=== PATIENT | male | born 1970 | race Caucasian/White ===

== ENCOUNTER 2022-05-22 06:58 | Emergency (ER) | payer SELFPAY ==
--- OUTSIDE RECORDS SUMMARY | 2022-05-22 07:02 | XMS REPORT | Continuity of Care Document ---
:1970 Author Organization [facility] t Address [address] [place] [address] [address]. [address] [place] [address] Care Team Providers Name Role Phone Chaz Klein MD Primary Care Physician [phone] Roro Alejo MD Attending Clinician Physician, No Primary or Family Admitting Clinician Unavaila ble Payers Payer Name Policy Type Policy Number Effective Date Expiration Date S ource Problems Condition Condition Condition Status Onset Resolution Last Treating Co mments Source Name Details Category Date Date Treatment Clinician Date No known No known Disease Unive rs active active ity of problems problems [facility] Allergies, Adverse Reactions, Alerts Allergy Allergy Status Severity Reaction(s) Onset Inactive Treating Comm ents Source Name Type Date Date Clinician No Known DA Active U 2019-0 [facility] All[facility]ie 02-10 Clear s 00:00: [facility] No Known DA Active U 2019-0 [facility] Allergie 02-10 Clear s 00:00: [facility] No Known DA Active U 2016- [facility] Drug 12-30 [place] Allergie 00:00: d [facility] No Known DA Active U 2016- [facility] 12-30 [place] All[facility] 00:[facility]: [facility] NO KNOWN Drug Active Univers ALLERGIE Class ity of S [facility] Social History Social Habit Start Date Stop Date Quantity Comments Source History of tobacco Smokes tobacco Me [facility]odist use daily Hospital Exposure to Not sure University of SARS-CoV-2 (event) [facility] Alcohol intake 2018-11-16 2018-11-16 Current drinker [facility] 00:00:00 00:00:00 of alcohol Hospital (finding) Cigarettes smoked 2018-07-01 2018-07-01 [facility] current (pack per 00:00:00 00:00:00 Hospita l day) - Reported Cigarette 2018-07-01 2018-07-01 [facility] pack-years 00:00:00 00:00:00 Hospital Tobacco use and 2018-07-01 2018-07-01 Smokeless [facility] exposure 00:00:00 00:00:00 tobacco non-user Hospital Alcohol Comment 2018-05-11 2018-05-11 daily use 4-6 Method ist 00:00:00 00:00:00 beers per day Hospital Sex Assigned At [birth year] [facility] 00:00:00 00:00:00 Hospital Smoking Status Start Date Stop Date Source Unknown if ever smoked [facility] Smokes tobacco daily 2018-07-01 00:00:00 [facility] Medications Ordered Filled Start Stop Current Ordering Indication Dosage Frequency Signature Comments Components Source Medication Medication Date Date Medication? Clinician (SIG) Name Name cephALEXin 2019-09- No 500mg 500 mg, Un whit (KEFLEX) 09-18 Oral, ONCE ity of capsule 500 15:15: 14:03 NOW, 1 [place] as mg 00 :00 dose, [facility] Medical 07/19/20 Branch at 0915, ROBBI
Re ason for Anti-Infec tive: Empiric Non-Surgic al Prophylaxi s
Durat ion of therapy: 72 hours acetaminoph 2019-09 2020- No 650mg 650 mg, U nivers en 09-18 Oral, ity of (TYLENOL) 13:15: 12:16 ONCE, 1 [place] tablet 650 00 :00 dose, Fri Medi lawson mg 07/19/20 Branch at 0715, ROBBI ondansetron 2019-09 Yes [id number] 4mg Take 1 Univers 4 mg tablet 09-18 tablet by ity of 00:00: mouth [place] 00 every 8 Medical (eight) Branch hours as needed for Nausea and Vomiting (N/V). traMADoL 50 2019-09 2020- No [id number] 50mg Take 1 Uni vers mg tablet 09-18 tablet by ity of 00:00: 05:59 mouth [place] 00 :00 every 6 Medical (six) Branch hours as needed (pain) for up to 7 days. Indication s: acute pain cephALEXin 2019-09 2020- No [id number] 500mg Take 1 Univers 500 mg 09-18 capsule by ity of capsule 00:00: 05:59 mouth 3 [place] 00 :00 (three) Medical times Branch daily for 7 days. No known No No known [facility] di medications 11-[address] 00:10: s Hospita 13 l Immunizations Ordered Immunization Filled Immunization Date Status Commen ts Source Name Name [facility] 2018-05-30 Completed [facility] 00:00:00 Hospital [facility] 2016-12-17 Completed [facility] 00:00:00 Hospital Vital Signs Vital Name Observation Time Observation Value Comments Source Systolic blood 2020-07-19 14:18:30 132 mm[Hg] Univer [facility] pressure [facility] Diastolic blood 2020-07-19 14:18:30 99 mm[Hg] [facility] Heart rate 2020-07-19 14:18:30 82 /min [facility] Respiratory rate 2020-07-19 14:18:30 16 /min [facility] Oxygen saturation in 2020-07-19 14:18:30 98 /min [facility] Arterial blood by [facility] Pulse oximetry Branch Body weight 2020-07-19 11:32:00 99.791 kg [facility] Body temperature 2020-07-19 11:31:00 36.5 Melony [facility] Procedures Procedure Date / Time Performed Performing Clinician Sourc e [place] LAYR CLOS WND 2020-07-19 14:17:05 Roro Alejo [facility] TRUNK,ARM,LEG Medical Branch 7.6-12.5 CM XR TIBIA FIBULA 2 VW 2020-07-19 12:26:14 Roro Alejo [facility] Plan of Care Planned Activity Planned Date Details Comments Source Future Scheduled 2022-05-10 COVID-19 VACCINE (#1) [facility] Hospital Test 21:32:00 [code = COVID-19 VACCINE (#1)] Future Scheduled 2022-05-10 COLONOSCOPY SCREENING [facility] Test 21:32:00 [code = COLONOSCOPY SCREENING] Future Scheduled 2022-05-10 SHINGLES VACCINES (1 Met [facility] Hospital Test 21:32:00 of 2) [code = SHINGLES VACCINES (1 of 2)] Future Scheduled 2022-05-10 INFLUENZA VACCINE Method is Hospital Test 21:32:00 [code = INFLUENZA VACCINE] Future Scheduled 2022-05-10 HEPATITIS B VACCINES Met [facility] Test 21:32:00 (1 of 3 - 3-dose series) [code = HEPATITIS B VACCINES (1 of 3 - 3-dose series)] Encounters Start End Encounter Admission Attending Care Care Encounter Source Date/Time Date/Time Type Type Clinicians Facility Department ID 2020-02-11 Inpatient [facility] [id number] [facility] 11:19:00 [facility] 2020-07-19 2020-07-19 Emergency [facility] TRAUMA [id number] [facility] [place] [place] 05:31:00 08:21:00 , Roro [place] [id number] it y [id number] Antonella henry [id number] [address] 2020-07-19 2020-07-19 Emergency X [facility] ERT [id number] Univers 05:31:00 05:31:00 ity of [facility] 2017-01-25 2017-01-25 Out[facility] [id number] [address] [place] [address] 00:00:00 00:00:00 [facility] Results Test Description Test Test Results Result Source Time Comments Comments Laceration Roro Alejo MD Un iversity of Repair 18 ? ? 07/19/2020 ?8:17 Antonella henry [facility] 14:17:05 [facility] RepairPerformed by: Roro Alejo MDAuthorized by: Roro Alejo MD Consent: ?Consent obtained: ?Verbal ?Consent given by: ?Patient ?Risks discussed: ?Infection, pain, retained foreign body, need for additional repair, poor cosmetic result, poor wound healing and vascular damage ?Alternatives discussed: ?No treatmentAnesthesia (see MAR for exact dosages): ?Anesthesia method: ?Local infiltration ?Local anesthetic: ?Lidocaine 1% w/o epiLaceration details: ?Location: ?Leg ?Leg location: ?R lower leg ?Length (cm): ?12 (v-shaped, ~8cm & 4 cm) ?Depth (mm): ?3Repair type: ?Repair type: ?IntermediatePre-proced ure details: ?Preparation: ?Patient was prepped and draped in usual sterile fashion and imaging obtained to evaluate for foreign bodiesExploration: ?Hemostasis achieved with: ?Direct pressure ?Wound exploration: entire depth of wound probed and visualized ? ?Wound extent: fascia violated and muscle damage ? ?Wound extent: no foreign bodies/material noted ? ?Contaminated: no ?Treatment: ?Area cleansed with: ?Saline ?Amount of cleaning: ?Standard ?Irrigation solution: ?Sterile saline ?Irrigation volume: ?500cc ?Irrigation method: ?Pressure wash ?Visualized foreign bodies/material removed: no ?Skin repair: ?Repair method: ?Sutures ?Suture size: ?3-0 ?Suture material: ?Prolene ?Suture technique: ?Simple interrupted and retention suture ?Number of sutures: ?15Approximation: ?Approximation: ?ClosePost-procedure details: ?Dressing: ?Sterile dressing ?Patient tolerance of procedure: ?Tolerated well, no immediate complications TROPONIN-I 2020-02-11 19:30:00 Test Item Value Reference Range Interpretation Comme nts TROPONIN-I (test code = TROPI) <0.02 NG/ML 0.00-0.06 N REFERENCE RANGE TROPONIN I HEALTHY INDIVID UALS: <0.06 ng/mL R/O ISCHE GAMALIEL: 0.07 - 0.60 ng/mL CUT-OFF R POOJA FOR AMI: 0.60 - 1.5 ng/m L [id number] 16:52:00 Test Item Value Reference Range Interpretation Comments TROPONIN-I (test <0.02 NG/ML 0.00-0.06 N REFERENCE R POOJA code = TROPI) TROPONIN I HEA LTHY INDIVIDUALS: <0 .06 ng/mL R/O ISCHE GAMALIEL: 0.07 - 0.60 ng/ mL CUT-OFF RANGE F OR AMI: 0.60 - 1.5 ng/m L BASIC METABOLIC [id number] 12:21:00 Test Item Value Reference Range Interpretation Comments SODIUM (test code = NA) 137 mmol/l 134.0-147.0 N POTASSIUM (test code = K) 3.6 mmol/L 3.6-5.2 N CHLORIDE (test code = CL) 102 mmol/l 98.0-107.0 N CARBON DIOXIDE (test code = CO2) 26.2 mmol/l 21.0-33.0 N ANION GAP (test code = GAP) 12.4 0-20 N GLUCOSE (test code = GLU) 92 mg/dl 70.0-110.0 N BLOOD UREA NITROGEN (test code = 13 mg/dl 7.0-18.0 N BUN) CREATININE (test code = CREAT) 1.17 mg/dL 0.60-1.30 N GFR NON BLACK (test code = 70 mL/min 90-95 L GFRNONBLACK) GFR BLACK (test code = GFRBLACK) 84 mL/min 109-115 L CALCIUM (test code = CA) 8.2 mg/dl 8.0-10.5 N Specimen comments: .HEPATIC FUNCTION PANEL [id number] 12:21:00 Test Item Value Reference Range Interpretation Comments TOTAL PROTEIN (test code = PROT) 7.3 gm/dL 6.4-8.2 N ALBUMIN (test code = ALB) 3.7 gm/dl 3.2-4.7 N BILIRUBIN TOTAL (test code = BILT) 0.2 mg/dl 0.0-1.0 N BILIRUBIN DIRECT (test code = 0.1 mg/dl 0.0-0.3 N BILD) SGOT/AST (test code = AST) 16 Units/L 15.0-37.0 N SGPT/ALT (test code = ALT) 33 Units/L 12.0-78.0 N ALKALINE PHOSPHATASE TOTAL (test 68 Units/L 50.0-136.0 N code = ALKP) Specimen comments: .B-TYPE NATRIURETIC [id number] 12:21:00 Test Item Value Reference Range Interpretation Comments B-TYPE NATRIURETIC PEPTIDE (test 8.0 PG/ML 5-100 N code = BNP) Specimen comments: .[id number] 12:21:00 Test Item Value Reference Range Interpretation Comments TROPONIN-I (test <0.02 NG/ML 0.00-0.06 N REFERENCE R POOJA code = TROPI) TROPONIN I HEA LTHY INDIVIDUALS: <0 .06 ng/mL R/O ISCHE GAMALIEL: 0.07 - 0.60 ng/ mL CUT-OFF RANGE F OR AMI: 0.60 - 1.5 ng/m L Specimen comments: .BASIC METABOLIC [id number] 12:16:00 Test Item Value Reference Range Interpretation Comments SODIUM (test code = NA) 137 mmol/l 134.0-147.0 N POTASSIUM (test code = K) 3.6 mmol/L 3.6-5.2 N CHLORIDE (test code = CL) 102 mmol/l 98.0-107.0 N CARBON DIOXIDE (test code = CO2) 26.2 mmol/l 21.0-33.0 N ANION GAP (test code = GAP) 12.4 0-20 N GLUCOSE (test code = GLU) 92 mg/dl 70.0-110.0 N BLOOD UREA NITROGEN (test code = 13 mg/dl 7.0-18.0 N BUN) CREATININE (test code = CREAT) 1.17 mg/dL 0.60-1.30 N GFR NON BLACK (test code = 70 mL/min 90-95 L GFRNONBLACK) GFR BLACK (test code = GFRBLACK) 84 mL/min 109-115 L CALCIUM (test code = CA) 8.2 mg/dl 8.0-10.5 N Specimen comments: .HEPATIC FUNCTION PANEL [id number] 12:16:00 Test Item Value Reference Range Interpretation Comments TOTAL PROTEIN (test code = PROT) 7.3 gm/dL 6.4-8.2 N ALBUMIN (test code = ALB) 3.7 gm/dl 3.2-4.7 N BILIRUBIN TOTAL (test code = BILT) 0.2 mg/dl 0.0-1.0 N BILIRUBIN DIRECT (test code = 0.1 mg/dl 0.0-0.3 N BILD) SGOT/AST (test code = AST) 16 Units/L 15.0-37.0 N SGPT/ALT (test code = ALT) 33 Units/L 12.0-78.0 N ALKALINE PHOSPHATASE TOTAL (test 68 Units/L 50.0-136.0 N code = ALKP) Specimen comments: .B-TYPE NATRIURETIC [id number] 12:16:00 Test Item Value Reference Range Interpretation Comments B-TYPE NATRIURETIC PEPTIDE (test code PG/ML 5-100 = BNP) Specimen comments: .[id number] 12:16:00 Test Item Value Reference Range Interpretation Comments TROPONIN-I (test <0.02 NG/ML 0.00-0.06 N REFERENCE R POOJA code = TROPI) TROPONIN I HEA LTHY INDIVIDUALS: <0 .06 ng/mL R/O ISCHE GAMALIEL: 0.07 - 0.60 ng/ mL CUT-OFF RANGE F OR AMI: 0.60 - 1.5 ng/m L Specimen comments: .URINALYSIS [id number] 12:12:00 Test Item Value Reference Range Interpretation Comments UA COLOR (test code = COLU) YELLOW UA APPEARANCE (test code = CLEAR APPU) UA GLUCOSE DIPSTICK (test NORMAL mg/dl NORMAL code = DGLUU) UA BILIRUBIN DIPSTICK (test NEGATIVE mg/dL NEGATIVE code = BILU) UA KETONE DIPSTICK (test NEGATIVE mg/dl NEGATIVE code = KETU) UA SPECIFIC GRAVITY (test 1.020 1.000-1.030 code = SGU) UA BLOOD DIPSTICK (test NEGATIVE Filiberto/micL NEGATIVE code = SMITHA) UA PH DIPSTICK (test code = 5.0 5.0-9.0 FROILAN) UA PROTEIN DIPSTICK (test NEGATIVE mg/dl NEGATIVE code = PROU) UA UROBILINIOGEN DIPSTICK NORMAL mg/dl NORMAL (test code = URO) UA NITRITE DIPSTICK (test NEGATIVE NEGATIVE code = JESSICA) UA LEUKOCYTE ESTERASE NEGATIVE Darrick/micL NEGATIVE DIPSTICK (test code = LEUU) UA WBC (test code = WBCU) 0-3 WBC/HPF NONE UA RBC (test code = RBCU) 0-2 RBC/HPF 0-3 UA EPITHELIAL CELLS (test 2-5 EPI/HPF 0-3 A code = EPIU) UA BACTERIA (test code = TRACE NONE BACU) Specimen comments: Clean CatchDRUGS OF ABUSE SCREEN [id number] 12:08:00 Test Item Value Reference Interpretation Comments Range URN COCAINE (test NEGATIVE NEGATIVE Cocaine cu t-off code = COCAURN) concentratio n: 300 ng/mL URN CANNABINOIDS POSITIVE NEGATIVE A UNCONFIRMED INITIAL (test code = SCREENING ONLY; SUGGEST CANNABURN) ADDITIONALCONFI RMATORY TESTING.Cannabi noids cut-off concent ration: 50 ng/mL URN AMPHETAMINE POSITIVE NEGATIVE A UNCONFIRMED INITIAL (test code = SCREENING ONLY; SUGGEST AMPHETURN) ADDITIONALCONFI RMATORY TESTING.Ampheta mine cut-off concentration: 1000 ng/mL URN BARBITURATE NEGATIVE NEGATIVE Barbiturate cut-off (test code = concentration: 200 ng/mL BARBITURN) URN BENZODIAZEPINE NEGATIVE NEGATIVE Benzodiaz epine cut-off (test code = concentration: 200 ng/mL BENZOURN) URN OPIATES (test NEGATIVE NEGATIVE Opiates cu t-off code = OPIATURN) concentrati on: 200 ng/mL URN PHENCYCLIDINE NEGATIVE NEGATIVE Phencyclid ine(PCP) cut-off (PCP) (test code = concentra tion: 25 ng/ml PHENCURN) URN METHADONE (test NEGATIVE NEGATIVE Methadon e cut-off code = METHAURN) concentrati on: 300 ng/mL Specimen comments: Clean CatchURINALYSIS [id number] 12:08:00 Test Item Value Reference Range Interpretation Comments UA COLOR (test code = COLU) YELLOW UA APPEARANCE (test code = CLEAR APPU) UA GLUCOSE DIPSTICK (test NORMAL mg/dl NORMAL code = DGLUU) UA BILIRUBIN DIPSTICK (test NEGATIVE mg/dL NEGATIVE code = BILU) UA KETONE DIPSTICK (test NEGATIVE mg/dl NEGATIVE code = KETU) UA SPECIFIC GRAVITY (test 1.020 1.000-1.030 code = SGU) UA BLOOD DIPSTICK (test NEGATIVE Filiberto/micL NEGATIVE code = SMITHA) UA PH DIPSTICK (test code = 5.0 5.0-9.0 FROILAN) UA PROTEIN DIPSTICK (test NEGATIVE mg/dl NEGATIVE code = PROU) UA UROBILINIOGEN DIPSTICK NORMAL mg/dl NORMAL (test code = URO) UA NITRITE DIPSTICK (test NEGATIVE NEGATIVE code = JESSICA) UA LEUKOCYTE ESTERASE NEGATIVE Darrick/micL NEGATIVE DIPSTICK (test code = LEUU) UA WBC (test code = WBCU) WBC/HPF NONE UA RBC (test code = RBCU) RBC/HPF 0-3 UA EPITHELIAL CELLS (test EPI/HPF 0-3 code = EPIU) UA BACTERIA (test code = NONE BACU) Specimen comments: Clean CatchBASIC METABOLIC [id number] 12:07:00 Test Item Value Reference Range Interpretation Comments SODIUM (test code = NA) 137 mmol/l 134.0-147.0 N POTASSIUM (test code = K) 3.6 mmol/L 3.6-5.2 N CHLORIDE (test code = CL) 102 mmol/l 98.0-107.0 N CARBON DIOXIDE (test code = CO2) 26.2 mmol/l 21.0-33.0 N ANION GAP (test code = GAP) 12.4 0-20 N GLUCOSE (test code = GLU) mg/dl 70.0-110.0 BLOOD UREA NITROGEN (test code = mg/dl 7.0-18.0 BUN) CREATININE (test code = CREAT) mg/dL 0.60-1.30 GFR NON BLACK (test code = mL/min 90-95 GFRNONBLACK) GFR BLACK (test code = GFRBLACK) mL/min 109-115 CALCIUM (test code = CA) mg/dl 8.0-10.5 Specimen comments: .HEPATIC FUNCTION PANEL [id number] 12:07:00 Test Item Value Reference Range Interpretation Comments TOTAL PROTEIN (test code = PROT) gm/dL 6.4-8.2 ALBUMIN (test code = ALB) gm/dl 3.2-4.7 BILIRUBIN TOTAL (test code = BILT) mg/dl 0.0-1.0 BILIRUBIN DIRECT (test code = BILD) mg/dl 0.0-0.3 SGOT/AST (test code = AST) Units/L 15.0-37.0 SGPT/ALT (test code = ALT) Units/L 12.0-78.0 ALKALINE PHOSPHATASE TOTAL (test Units/L 50.0-136.0 code = ALKP) Specimen comments: .B-TYPE NATRIURETIC [id number] 12:07:00 Test Item Value Reference Range Interpretation Comments B-TYPE NATRIURETIC PEPTIDE (test code PG/ML 5-100 = BNP) Specimen comments: .[id number] 12:07:00 Test Item Value Reference Range Interpretation Comments TROPONIN-I (test code = TROPI) NG/ML 0.00-0.06 Specimen comments: .PROTHROMBIN [id number] 11:57:00 Test Item Value Reference Range Interpretation Comments PROTHROMBIN TIME 12.0 SECONDS 9.9-12.8 N PATIENT (test code = PTP) INTERNATIONAL NORMAL 1.0 0.89-1.14 N THE INR IS TO BE USED RATIO (test code = ONLY FOR MONITORING INR) ORAL ANTICOAGULANTTH ERAPY. THE FOLLOWING A RE SUGGESTED RANGE S FROM [facility]:BENNETT CATION INR VALUEPROPHY LAXIS OF VENOUS THROM BOSIS (ORTHOPEDIC ELAINE SUMAYA) 2.0 - 3.0PROPHY LAXIS OF VENOUS THROM BOSIS (OTHER THAN HIG H-RISK SURGERY) 2.0 - 3.0TREATMENT OF DEEP VEIN THROMBOSIS OR PULMONARY EMBOL ISM 2.0 - 3.0PREVENTION OF SYSTEMIC EMBOLI SM TISSUE HEART VA LVES 2.0 - 3.0 ACUTE MYOCARDIAL INFA RCTION (TO PREVENT SYS TEMIC EMBOLISM) 2.0 - 3.0 ACUTE MYOCARDIA L INFARCTION (TO PREVENT RECURRENT INFAR CT) 2.5 - 3.0 VALVULAR HEART DISEASE 2.0 - 3 .0 ATRIAL FIBRILAT ION 2.0 - 3.0BILEAFLET MECHANICAL VALV E IN AORTIC POSITION 2.0 - 3.0MECHANICAL PROSTHETIC VALV ES (HIGH RISK) 2.5 - 3.5PRESENCE OF LUPUS ANTICOAGULANT O R ANTIPHOSPHOLIPI D ANTIBODIES 2.5 - 3.5 Specimen comments: .Is patient on anticoagulants? NTHROMBOPLASTIN TIME PARTIAL 2020-02-11 11:57:00 Test Item Value Reference Range Interpretation Comments THROMBOPLASTIN TIME 26.50 SECONDS 25.86-36.07 N [place] d Lab PARTIAL (test code = Therape utic Range - PTT) APTT of 55.8-85 .4 secondscorrelat es with plasma heparin concentration o f 0.2-0.4 u/mL Ne w range effective - Specimen comments: .Is patient on anticoagulants? NCBC W/AUTO [id number] 11:49:00 Test Item Value Reference Range Interpretation Comments WHITE BLOOD CELL (test code = 8.4 K/mm3 4.5-11.0 N WBC) RED BLOOD CELL (test code = 4.58 M/mm3 4.40-5.90 N RBC) HEMOGLOBIN (test code = HGB) 14.1 gm/dL 13.0-17.0 N HEMATOCRIT (test code = HCT) 42.4 % 36.0-48.0 N MEAN CELL VOLUME (test code = 92.6 UM3 80.0-94.0 N MCV) MEAN CELL HGB (test code = MCH) 30.8 UUG 25.5-32.5 N MEAN CELL HGB CONCETRATION 33.3 gm/dL 29.0-35.5 N (test code = MCHC) RED CELL DISTRIBUTION WIDTH 12.5 % 11.5-15.0 N (test code = RDW) RED CELL DISTRIBUTION WIDTH SD 42.5 fL 34.8-50.2 N (test code = RDW-SD) PLATELET COUNT (test code = 240 K/mm3 150-400 N PLT) MEAN PLATELET VOLUME (test code 9.3 fl 7.4-10.4 N = MPV) NEUTROPHIL % (test code = NT%) 67.6 % 49.0-76.0 N IMMATURE GRANULOCYTE % (test 0.5 % 0.0-0.4 H code = IG%) LYMPHOCYTE % (test code = LY%) 24.7 % 23.0-38.0 N MONOCYTE % (test code = MO%) 5.3 % 1.0-10.0 N EOSINOPHIL % (test code = EO%) 1.2 % 1.0-5.0 N BASOPHIL % (test code = BA%) 0.7 % 0.0-1.0 N NEUTROPHIL # (test code = NT#) 5.7 K/mm3 2.4-6.3 N IMMATURE GRANULOCYTE # (test 0.04 x10 3/uL 0.00-0.07 N code = IG#) LYMPHOCYTE # (test code = LY#) 2.1 K/mm3 1.2-4.0 N MONOCYTE # (test code = MO#) 0.5 K/mm3 0.0-0.6 N EOSINOPHIL # (test code = EO#) 0.1 K/MM3 0.0-0.7 N BASOPHIL # (test code = BA#) 0.1 K/mm3 0.0-0.2 N - XR CHEST 1 [id number] 11:47:00 FAX: Dahlia Sinha MD [phone] [place]: St: PRE Name: CRISTIAN DAVALOS [facility] [place] : 1970 Age/S: 49/M [address] [facility] Unit #: [id number] Loc: [address] Phys: Dahlia Sinha WMD [id number] Acct: [id number] Dis Date: Status: PRE ER PHONE #: [phone] Exam Date: 02/11/2020 1142 FAX #: [phone] Reason: SOB EXAMS: CPT CODE: [id number] XR CHEST 1 V [id number] Location: C3 EXAM: XR CHEST 1 VIEW DATE: 02/11/2020 11:21 AM INDICATION: Shortness of breath COMPARISON: Chest radiographdated 12/30/2016 TECHNIQUE: AP chest FINDINGS: Lines, tubes and hardware: None. Lungs and pleura: There are minimal linear opacities within the lower lobes bilaterally. Otherwise, no focal consolidation.No pneumothorax. The pulmonary vasculature is within normal limits. Heart and mediastinum: The heartsize is normal for technique. The mediastinal contours are normal. Bones: No acute bony abnormality is identified. IMPRESSION: Minimal linear opacities within the lower lobes, favored to represent atelectatic change. Otherwise no acute cardiopulmonary abnormality. at 1147 Reported and signed by: TIFFANIE AGGARWAL M.D. CC: Dahlia Sinha MD Technologist: CHRIS GONZALEZ Trnscrd Date/Time/By: 02/11/2020 (3403) : By: [email or web address] PAGE 1Signed Report FAX: Dahlia Sinha MD [phone] [place]: St: PRE Name: CRISTIAN DAVALOS [facility] [place] : 1970 Age/S: 49/M [address] [employer] Unit #: [id number] Loc: E.ERS2 [place], [place]: [place] [id number] Acct: [id number] Dis Date: Status: PRE ER PHONE #: [phone] Exam Date: 0 02/11/2020 1142 FAX #: [phone] Reason: SOB EXAMS: CPT CODE: [id number] XR CHEST 1 V [id number] (Continued) Orig Print D/T: S: 02/11/2020 (1151) PAGE 2 Signed Report
--- NOTE | 2022-05-22 08:59 | ER ---
Nurse's Notes [facility] Name: John Ortiz Age: 51 yrs Sex: Male : 1970 Arrival Date: 05/22/2022 Time: 07:02 Bed 11 Private MD: Diagnosis: Sprain of unspecified site of right knee;Pain in right knee Presentation: 05/22 07:08 Chief complaint: Patient states: R knee pain after hyper extending it a week ago. Pt ss ambulated to triage with steady gait. Coronavirus screen: Client denies travel out of the [place] in the last 14 days. Ebola Screen: Patient denies exposure to infectious person. Patient denies travel to an Ebola-affected area in the 21 days before illness onset. Initial Sepsis Screen: Does the patient meet any 2 criteria? No. Patient's initial sepsis screen is negative. Does the patient have a suspected source of infection? No. Patient's initial sepsis screen is negative. Risk Assessment: Do you want to hurt yourself or someone else? Patient reports no desire to harm self or others. Onset of symptoms was May 15, 2022. 07:08 Method Of Arrival: Ambulatory ss 07:08 Acuity: LYDIA 4 ss Historical: - Allergies: 07:09 No Known Allergies; ss - Home Meds: 07:09 None [Active]; ss - PMHx: 07:09 None; ss - PSHx: 07:09 None; ss - Immunization history:: Client reports receiving the 2nd dose of the Covid vaccine. - Social history:: Smoking status: Patient reports the use of cigarette tobacco products, smokes one pack cigarettes per day. - Family history:: not pertinent. Screenin:29 Abuse screen: Denies threats or abuse. Denies injuries from another. Nutritional ss screening: No deficits noted. Tuberculosis screening: Never had TB. Fall Risk None identified. Assessment: 07:29 General: Appears in no apparent distress. comfortable, Behavior is calm, cooperative. ss General: Ambulatory with steady gait. . Pain: Complains of pain in right knee Pain currently is 5 out of 10 on a pain scale. Quality of pain is described as aching, Pain began 1 week ago Is continuous. Neuro: Level of Consciousness is awake, alert, obeys commands. Cardiovascular: Pulses are palpable in right posterior tibial artery and left posterior tibial artery. Respiratory: Airway is patent Respiratory effort is even, unlabored, Respiratory pattern is regular, symmetrical. Derm: Skin is intact, is healthy with good turgor, Skin is dry, Skin is pink, warm \T\ dry. normal. Musculoskeletal: Circulation, motion, and sensation intact. Range of motion: intact in all extremities, Swelling absent. Vital Signs: 07:09 BP 174 / 111; Pulse 80; Resp 15; Temp 97.8(TE); Pulse Ox 98% on R/A; Weight 95.25 kg; ss Height 6 ft. 1 in. (185.42 cm); Pain 5/10; 07:09 Body Mass Index 27.71 (95.25 kg, 185.42 cm) ED Course: 07:02 Patient arrived in ED. bp1 07:09 Triage completed. ss 07:09 Arm band placed on left wrist. ss 07:15 Keyur Singleton MD is Attending Physician. [facility] 07:29 Yamel Montague, TIFFANY is Primary Nurse. 07:29 Patient has correct armband on for positive identification. ss 08:58 Jm Hickman MD is Referral Physician. [facility] 09:15 No provider procedures requiring assistance completed. Patient did not have IV access ss during this emergency room visit. Administered Medications: 09:14 Drug: Motrin (ibuprofen) 600 mg Route: PO; ss 09:14 Follow up: Response: Medication administered at discharge. Medication: 07:29 VIS not applicable for this client. Outcome: 08:59 Discharge ordered by . chema 09:15 Discharged to home ambulatory. 09:15 Condition: good 09:15 Discharge instructions given to patient, Instructed on discharge instructions, follow up and referral plans. medication usage, Demonstrated understanding of instructions, follow-up care, medications, Prescriptions given X 1. 09:17 Patient left the ED. Signatures: Keyur Singleton MD MD cha Smirch, Shelby, TIFFANY RN Goldie Marino bp1
--- NOTE | 2022-05-22 09:00 | EDPHYS ---
Physician Documentation [facility] Name: John Ortiz Age: 51 yrs Sex: Male : 1970 Arrival Date: 05/22/2022 Time: 07:02 Bed 11 Private MD: ED Physician Keyur Singleton HPI: 05/22 08:52 This 51 yrs old Male presents to ER via Ambulatory with complaints of Knee chema Injury. 08:52 The patient presents with decreased range of motion, pain, that is acute. The chema complaints affect the right knee. Context: The problem was sustained at home. Onset: The symptoms/episode began/occurred yesterday. Modifying factors: The symptoms are alleviated by elevating leg, remaining still, the symptoms are aggravated by movement, weight bearing. Associated signs and symptoms: The patient has no apparent associated signs or symptoms. Treatment prior to arrival includes: herlinda wrap. Severity of symptoms: At their worst the symptoms were mild, just prior to arrival, in the emergency department the symptoms have improved, mildly. The patient has not experienced similar symptoms in the past. Historical: - Allergies: 07:09 No Known Allergies; ss - Home Meds: 07:09 None [Active]; ss - PMHx: 07:09 None; ss - PSHx: 07:09 None; ss - Immunization history:: Client reports receiving the 2nd dose of the Covid vaccine. - Social history:: Smoking status: Patient reports the use of cigarette tobacco products, smokes one pack cigarettes per day. - Family history:: not pertinent. ROS: 08:52 Constitutional: Negative for fever, chills, and weight loss, Eyes: Negative for injury, chema pain, redness, and discharge, ENT: Negative for injury, pain, and discharge, Neck: Negative for injury, pain, and swelling, Cardiovascular: Negative for chest pain, palpitations, and edema, Respiratory: Negative for shortness of breath, cough, wheezing, and pleuritic chest pain, Abdomen/GI: Negative for abdominal pain, nausea, vomiting, diarrhea, and constipation, Back: Negative for injury and pain, : Negative for injury, bleeding, discharge, and swelling, Skin: Negative for injury, rash, and discoloration, Neuro: Negative for headache, weakness, numbness, tingling, and seizure, Psych: Negative for depression, anxiety, suicide ideation, homicidal ideation, and hallucinations, Allergy/Immunology: Negative for hives, rash, and allergies, Endocrine: Negative for neck swelling, polydipsia, polyuria, polyphagia, and marked weight changes, Hematologic/Lymphatic: Negative for swollen nodes, abnormal bleeding, and unusual bruising. 08:52 MS/extremity: Positive for decreased range of motion, pain. Exam: 08:52 Constitutional: This is a well developed, well nourished patient who is awake, alert, chema and in no acute distress. Head/Face: Normocephalic, atraumatic. Eyes: Pupils equal round and reactive to light, extra-ocular motions intact. Lids and lashes normal. Conjunctiva and sclera are non-icteric and not injected. Cornea within normal limits. Periorbital areas with no swelling, redness, or edema. ENT: Nares patent. No nasal discharge, no septal abnormalities noted. Tympanic membranes are normal and external auditory canals are clear. Oropharynx with no redness, swelling, or masses, exudates, or evidence of obstruction, uvula midline. Mucous membranes moist. Neck: Trachea midline, no thyromegaly or masses palpated, and no cervical lymphadenopathy. Supple, full range of motion without nuchal rigidity, or vertebral point tenderness. No Meningismus. Chest/axilla: Normal chest wall appearance and motion. Nontender with no deformity. No lesions are appreciated. Cardiovascular: Regular rate and rhythm with a normal S1 and S2. No gallops, murmurs, or rubs. Normal PMI, no JVD. No pulse deficits. Respiratory: Lungs have equal breath sounds bilaterally, clear to auscultation and percussion. No rales, rhonchi or wheezes noted. No increased work of breathing, no retractions or nasal flaring. Abdomen/GI: Soft, non-tender, with normal bowel sounds. No distension or tympany. No guarding or rebound. No evidence of tenderness throughout. Back: No spinal tenderness. No costovertebral tenderness. Full range of motion. Male : Normal genitalia with no discharge or lesions. Skin: Warm, dry with normal turgor. Normal color with no rashes, no lesions, and no evidence of cellulitis. Neuro: Awake and alert, GCS 15, oriented to person, place, time, and situation. Cranial nerves II-XII grossly intact. Motor strength 5/5 in all extremities. Sensory grossly intact. Cerebellar exam normal. Normal gait. Psych: Awake, alert, with orientation to person, place and time. Behavior, mood, and affect are within normal limits. 08:52 Musculoskeletal/extremity: Extremities: grossly normal except: noted in the right knee: decreased ROM, pain. Vital Signs: 07:09 BP 174 / 111; Pulse 80; Resp 15; Temp 97.8(TE); Pulse Ox 98% on R/A; Weight 95.25 kg; ss Height 6 ft. 1 in. (185.42 cm); Pain 5/10; 07:09 Body Mass Index 27.71 (95.25 kg, 185.42 cm) ss MDM: 07:16 Patient medically screened. chema 05/22 08:50 Order name: Knee Immobilizer; Complete Time: 08:53 chema Administered Medications: 09:14 Drug: Motrin (ibuprofen) 600 mg Route: PO; ss 09:14 Follow up: Response: Medication administered at discharge. Disposition Summary: 05/22/22 08:59 Discharge Ordered Location: Home chema Problem: new chema Symptoms: have improved chema Condition: Stable chema Diagnosis - Sprain of unspecified site of right knee chema - Pain in right knee chema Followup: chema - With: Private Physician - When: 2 - 3 days - Reason: Recheck today's complaints, Continuance of care, Re-evaluation by your physician Followup: chema - With: Jm Hickman MD - When: 2 - 3 days - Reason: Recheck today's complaints, Re-evaluation by your physician Discharge Instructions: - Discharge Summary Sheet chema - Joint Pain chema - How to Use a Knee Brace chema - Musculoskeletal Pain chema - Acute Knee Pain, Adult chema - Acute Knee Pain, Adult, [id number] chema Forms: - Medication Reconciliation Form chema - Thank You Letter chema - Antibiotic Education chema - Prescription Opioid Use chema Prescriptions: - Ibuprofen 600 mg Oral Tablet - take 1 tablet by ORAL route every 6 hours As needed take with food; 30 tablet; chema Refills: 0, Product Selection Permitted Signatures: Dispatcher [employer] EDMS Keyur Singleton MD MD cha Smirch, Shelby, RN RN ss Corrections: (The following items were deleted from the chart) 08:40 07:12 Knee Right 3 View+RAD.RAD.BRZ ordered. EDMS EDMS
[2022-05-22] MEDS ORDERED: IBUPROFEN 200 MG TAB PO ONE (09:17)
[2022-05-23 15:16] VITALS: BP 174/111; TEMP 97.8; O2SAT 98
== END 2022-05-22 09:17 | disposition home or self-care (01) ==
LOC: ER 06:58
DX: S83.91XA Sprain of unspecified site of right knee, initial encounter (principal); F17.210 Nicotine dependence, cigarettes, uncomplicated
CPT/HCPCS: 99283

== ENCOUNTER 2024-04-07 08:39 | Observation (INO) | payer OTHER ==
[2024-04-07 09:50] LABS: Absolute Eosinophils 0.1 K/uL (0-0.5); Absolute Lymphocytes (CBC) 1.4 K/uL (0.7-4.9); Absolute Monocytes 0.5 K/uL (0.1-1.3); Absolute Neutrophil 7.9 K/uL (1.8-8.0); Basophils % 0.4 % (0-1.3); Eosinophils % 0.7 % (0-4.4); Hematocrit 41.4 % (39.6-49.0); Hemoglobin 14.3 g/dL (13.6-17.9); Lymphocytes % 14.4 % (15.3-44.8); MCH 30.4 pg (27.0-35.0); MCHC 34.4 g/dL (32.0-36.0); MCV 88.4 fL (80-100); MPV 7.4 fL (7.6-11.3); Monocytes % 4.6 % (3.3-12.3); Neutrophils % 79.9 % (41.7-73.7); Platelets 225 thou/uL (152-406); RBC Red Blood Cell Count 4.69 M/uL (4.33-5.43); Red Cell Distribution Width 12.9 % (12.1-15.2)
[2024-04-07] MEDS ORDERED: MORPHINE 4 MG/ML SYR ONE (09:57)
[2024-04-07] MEDS ORDERED: ONDANSETRON 4 MG/2 ML VIAL ONE ×2 (09:57→12:14)
[2024-04-07] MEDS ORDERED: FAMOTIDINE 20 MG/2 ML VIAL IV ONE (09:57)
--- NOTE | 2024-04-07 09:57 | RAD REPORT ---
EXAM DESCRIPTION: CTAbdomen Pelvis W Contrast - 04/07/2024 9:45 am CLINICAL HISTORY: Abdominal pain. ABD PAIN COMPARISON: No comparisons TECHNIQUE: Biphasic CT imaging of the abdomen and pelvis was performed with 100 ml non-ionic IV cont rast. All CT scans are performed using dose optimization technique as appropriate and may include automated exposure control or mA/KV adjustment according to patient size. FINDINGS: The lung bases are clear. The liver, spleen, pancreas, and kidneys are within normal limits. Bilateral adrenal nodules are pres ent, larger on the left measuring 20 mm No bowel obstruction, free air, free fluid or abscess. The appendix is mildly dilated and mildly inf lamed measured 12 mm compatible with acute appendicitis. No evidence of significant lymphadenopathy. Aortoiliac atherosclerosis. Mild lower lumbar spondylosis. IMPRESSION: Acute appendicitis.
[2024-04-07] MEDS ORDERED: NA CHLORIDE 0.9% 1,000 ML ONE ×2 (09:58→11:39)
--- NOTE | 2024-04-07 10:00 | EDPHYS ---
Physician Documentation [facility] Name: John Ortiz Age: 53 yrs Sex: Male : 1970 Arrival Date: 04/07/2024 Time: 08:39 Bed 19 Private MD: [place] Physician Keyur Singleton HPI: 04/07 09:48 This 53 yrs old Male presents to ER via Ambulatory with complaints of chema Abdominal Pain. 09:48 The patient presents with abdominal pain in the lower abdomen. chema Historical: - Allergies: 08:56 No Known Allergies; ap3 - Home Meds: 08:56 None [Active]; ap3 - PMHx: 08:56 None; ap3 - Immunization history:: Client reports receiving the 1st dose of the Covid vaccine. - Infectious Disease History:: Denies. - Social history:: Smoking status: Patient reports the use of cigarette tobacco products, smokes one pack cigarettes per day. ROS: 09:54 Constitutional: Negative for fever, chills, and weight loss, Eyes: Negative for injury, chema pain, redness, and discharge, ENT: Negative for injury, pain, and discharge, Neck: Negative for injury, pain, and swelling, Cardiovascular: Negative for chest pain, palpitations, and edema, Respiratory: Negative for shortness of breath, cough, wheezing, and pleuritic chest pain, Back: Negative for injury and pain, : Negative for injury, bleeding, discharge, and swelling, MS/Extremity: Negative for injury and deformity, Skin: Negative for injury, rash, and discoloration, Neuro: Negative for headache, weakness, numbness, tingling, and seizure, Psych: Negative for depression, anxiety, suicide ideation, homicidal ideation, and hallucinations, Allergy/Immunology: Negative for hives, rash, and allergies, Endocrine: Negative for neck swelling, polydipsia, polyuria, polyphagia, and marked weight changes, Hematologic/Lymphatic: Negative for swollen nodes, abnormal bleeding, and unusual bruising, 09:54 Abdomen/GI: Positive for abdominal pain, nausea, abdominal cramps, of the right lower quadrant and left lower quadrant, Exam: 09:54 Constitutional: This is a well developed, well nourished patient who is awake, alert, chema and in no acute distress. Head/Face: Normocephalic, atraumatic. Eyes: Pupils equal round and reactive to light, extra-ocular motions intact. Lids and lashes normal. Conjunctiva and sclera are non-icteric and not injected. Cornea within normal limits. Periorbital areas with no swelling, redness, or edema. ENT: Nares patent. No nasal discharge, no septal abnormalities noted. Tympanic membranes are normal and external auditory canals are clear. Oropharynx with no redness, swelling, or masses, exudates, or evidence of obstruction, uvula midline. Mucous membranes moist. Neck: Trachea midline, no thyromegaly or masses palpated, and no cervical lymphadenopathy. Supple, full range of motion without nuchal rigidity, or vertebral point tenderness. No Meningismus. Chest/axilla: Normal chest wall appearance and motion. Nontender with no deformity. No lesions are appreciated. Cardiovascular: Regular rate and rhythm with a normal S1 and S2. No gallops, murmurs, or rubs. Normal PMI, no JVD. No pulse deficits. Respiratory: Lungs have equal breath sounds bilaterally, clear to auscultation and percussion. No rales, rhonchi or wheezes noted. No increased work of breathing, no retractions or nasal flaring. Back: No spinal tenderness. No costovertebral tenderness. Full range of motion. Male : Normal genitalia with no discharge or lesions. Skin: Warm, dry with normal turgor. Normal color with no rashes, no lesions, and no evidence of cellulitis. MS/ Extremity: Pulses equal, no cyanosis. Neurovascular intact. Full, normal range of motion. Neuro: Awake and alert, GCS 15, oriented to person, place, time, and situation. Cranial nerves II-XII grossly intact. Motor strength 5/5 in all extremities. Sensory grossly intact. Cerebellar exam normal. Normal gait. Psych: Awake, alert, with orientation to person, place and time. Behavior, mood, and affect are within normal limits. 09:54 Abdomen/GI: Inspection: abdomen appears normal, Bowel sounds: normal, Palpation: mild abdominal tenderness, moderate abdominal tenderness, in the right lower quadrant and left lower quadrant, Liver: no appreciated palpable abnormalities, Hernia: not appreciated, 10:24 ECG was reviewed by the Attending Physician. [facility] Vital Signs: 08:54 BP 187 / 100; Pulse 70; Resp 17; Temp 98; Pulse Ox 100% ; Weight 95.25 kg; Height 6 ft. ap3 1 in. ; Pain 7/10; 09:52 BP 184 / 98; Pulse 72; Resp 18; Pulse Ox 94% on R/A; kj2 12:31 BP 168 / 108; Pulse 64; Resp 16; Temp 98(O); Pulse Ox 96% ; kj2 08:54 Body Mass Index 27.71 (95.25 kg, 185.42 cm) ap3 08:54 Pain Scale: Adult ap3 MDM: 09:10 Patient medically screened. chema 09:55 Differential diagnosis: appendicitis, bowel obstruction, Cholelithiasis, chema diverticulitis, gastritis, gastroesophageal reflux disease, Mesenteric ischemia or infarction, non-specific abd pain, pancreatitis, Peptic Ulcer Disease, Prostatitis, Pyelonephritis, Ureterolithiasis, urinary tract infection. Data reviewed: vital signs, nurses notes, lab test result(s), EKG, radiologic studies, CT scan, plain films. Consideration of Admission/Observation Escalation of care including admission/observation considered. I considered the following discharge prescriptions or medication management in the emergency department Medications were administered in the Emergency Department. See MAR. Test considered but Not performed: Ultrasound no abdominal usg. 04/07 09:26 Order name: CBC with Diff; Complete Time: 09:58 [facility] 04/07 09:26 Order name: CMP [facility] 04/07 09:26 Order name: Lipase [facility] 04/07 09:26 Order name: Urinalysis w/ reflexes [facility] 04/07 10:10 Order name: CREATININE WHOLE BLOOD [facility] 04/07 11:03 Order name: Urinalysis w/ reflexes [facility] 04/07 11:03 Order name: Basic Metabolic Panel [facility] 04/07 11:03 Order name: Basic Metabolic Panel [facility] 04/07 11:03 Order name: Basic Metabolic Panel [facility] 04/07 11:03 Order name: CBC with Automated Diff ED[facility] 04/07 11:03 Order name: CBC with Automated Diff [facility] 04/07 11:03 Order name: CBC with Automated Diff [facility] 04/07 11:03 Order name: Lipid Profile [facility] 04/07 11:03 Order name: Lipid Profile [facility] 04/07 11:03 Order name: Magnesium [facility] 04/07 11:03 Order name: Magnesium [facility] 04/07 11:03 Order name: Magnesium [facility] 04/07 11:03 Order name: Phosphorus [facility] 04/07 11:03 Order name: Phosphorus [facility] 04/07 11:03 Order name: Phosphorus [facility] 04/07 09:26 Order name: CT Abd/Pelvis - IV Contrast Only; Complete Time: 09:58 [facility] 04/07 09:26 Order name: Chest Single View XRAY [facility] 04/07 11:03 Order name: CONS Physician Consult [facility] 04/07 09:26 Order name: IV Saline Lock; Complete Time: 10:22 [facility] 04/07 09:26 Order name: Labs collected and sent; Complete Time: 10:22 [facility] 04/07 09:26 Order name: EKG - Nurse/Tech; Complete Time: 09:32 [facility] EC:24 Rate is 69 beats/min. Rhythm is regular. QRS [place] is Normal. AR interval is normal. QRS chema interval is normal. QT interval is normal. No Q waves. T waves are Normal. No ST changes noted. Clinical impression: Normal ECG and No evidence of ischemia. Interpreted by me. Reviewed by me. Administered Medications: 10:10 Drug: Famotidine IVP 20 mg IVP once; dilute with 10 mL 0.9% NaCl; give over 2 minutes kj2 Route: IVP; Site: right forearm; 12:40 Follow up: Response: No adverse reaction kj2 10:11 Drug: NS 0.9% IV 1000 ml IV at 1 bolus Per protocol; 1000 mL bolus Route: IV; Rate: 1 kj2 bolus; Site: right forearm; 11:57 Follow up: IV Status: Completed infusion; IV Intake: 1000ml nj1 10:11 Drug: Ondansetron IVP 4 mg IVP once; over 2 minutes Route: IVP; Site: right forearm; kj2 12:40 Follow up: Response: No adverse reaction kj2 10:11 Drug: morphine IVP or IV 4 mg IVP once over 4 mins Route: IVP; Infused Over: 4 mins; kj2 Site: right femoral; 12:40 Follow up: Response: No adverse reaction kj2 11:57 Drug: Piperacillin-Tazobactam IVPB 3.375 grams IVPB once over 60 mins; (mix in NS 100 nj1 mL) Route: IVPB; Infused Over: 60 mins; Site: right forearm; 21:25 Follow up: Response: No adverse reaction; IV Status: Completed infusion kj2 11:57 Drug: NS 0.9% IV 1000 ml IV at 125 ml/hr continuous Route: IV; Rate: 125 ml/hr; Site: nj right forearm; 21:25 Follow up: IV Status: Infusion continued upon admission kj2 Disposition Summary: 04/07/24 10:00 Hospitalization Ordered Notes: Hospitalization Status: Observation chema Provider: Larry Rand cha Location: Telemetry/MedSurg (observation) chema Condition: Stable chema Problem: new chema Symptoms: have improved chema Bed/Room Type: Standard chema Room Assignment: 231(04/07/24 12:36) bd Diagnosis - Acute appendicitis with localized peritonitis chema - Essential (primary) hypertension chema Forms: - Medication Reconciliation Form chema - SBAR form chema - Leadership Thank You Letter chema Signatures: Dispatcher [employer] EDMS Brigette Martinez Corey, MD MD cha Prokisch, Amanda RN RN ap3 Eugenia Bartlett RN RN nj1 Leigh Sawant RN RN kj2 Corrections: (The following items were deleted from the chart) 09: 09:26 Abdomen Pelvis W Con+CT.RAD.BRZ ordered. EDMS EDMS 09: 09:26 Chest Single View+RAD.RAD.BRZ ordered. EDMS EDMS 12:36 10:00 chema bd
--- NOTE | 2024-04-07 10:00 | ER ---
Nurse's Notes [facility] Name: John Ortiz Age: 53 yrs Sex: Male : 1970 Arrival Date: 04/07/2024 Time: 08:39 Bed 19 Private MD: Diagnosis: Acute appendicitis with localized peritonitis;Essential (primary) hypertension Presentation: 04/07 08:54 Chief complaint: Patient states: he started having abdominal pain last night. patient ap3 pointed to his lower umbilical area for the pain and that he currently rates it as a 7/10 on the pain scale. patient denies any N/V/D but states he has been having more frequency in bowel movements. Coronavirus screen: At this time, the client does not indicate any symptoms associated with coronavirus-19. Ebola Screen: No symptoms or risks identified at this time. Initial Sepsis Screen: Does the patient meet any 2 criteria? No. Patient's initial sepsis screen is negative. Does the patient have a suspected source of infection? No. Patient's initial sepsis screen is negative. Risk Assessment: Do you want to hurt yourself or someone else? Patient reports no desire to harm self or others. Onset of symptoms was April 06, 2024. 08:54 Method Of Arrival: Ambulatory ap3 08:54 Acuity: LYDIA 2 ap3 Triage Assessment: 08:56 General: Appears uncomfortable, Behavior is calm, cooperative, appropriate for age. ap3 Pain: Complains of pain in umbilical area, suprapubic area, right lower quadrant and left lower quadrant Pain currently is 7 out of 10 on a pain scale. Pain began 1 day ago. Neuro: Level of Consciousness is awake, alert, obeys commands, Oriented to person, place, time, situation, Appropriate for age Gait is steady. Cardiovascular: Patient's skin is warm and dry. Respiratory: Airway is patent Respiratory effort is even, unlabored, Respiratory pattern is regular, symmetrical. GI: Reports lower abdominal pain. Historical: - Allergies: 08:56 No Known Allergies; ap3 - Home Meds: 08:56 None [Active]; ap3 - PMHx: 08:56 None; ap3 - Immunization history:: Client reports receiving the 1st dose of the Covid vaccine. - Infectious Disease History:: Denies. - Social history:: Smoking status: Patient reports the use of cigarette tobacco products, smokes one pack cigarettes per day. Screenin:57 Abuse screen: Denies threats or abuse. Nutritional screening: No deficits noted. ap3 Tuberculosis screening: No symptoms or risk factors identified. 09:54 [facility] ED Fall Risk Assessment (Adult) History of falling in the last 3 months, kj2 including since admission No falls in past 3 months (0 pts) Confusion or Disorientation No (0 pts) Intoxicated or Sedated No (0 pts) Impaired Gait No (0 pts) Mobility Assist Device Used No (0 pt) Altered Elimination No (0 pt) Score/Fall Risk Level 0 - 2 = Low Risk Educated pt \T\ family on fall prevention, incl call for assistance when getting out of bed, Hourly rounding (assess needs \T\ fall precautionary measures) done. Assessment: 09:51 General: Appears uncomfortable, Behavior is cooperative. Pain: Complains of pain in kj2 abdomen and umbilical area Pain currently is 7 out of 10 on a pain scale. 10:14 GI: Abdomen is tender to palpation X 4 quads. kj2 12:35 Reassessment: report given to TIFFANY Stauffer for surgery. kj2 12:37 GI: Bowel sounds. : No deficits noted. kj2 Vital Signs: 08:54 BP 187 / 100; Pulse 70; Resp 17; Temp 98; Pulse Ox 100% ; Weight 95.25 kg; Height 6 ft. ap3 1 in. ; Pain 7/10; 09:52 BP 184 / 98; Pulse 72; Resp 18; Pulse Ox 94% on R/A; kj2 12:31 BP 168 / 108; Pulse 64; Resp 16; Temp 98(O); Pulse Ox 96% ; kj2 08:54 Body Mass Index 27.71 (95.25 kg, 185.42 cm) ap3 08:54 Pain Scale: Adult ap3 ED Course: 08:42 Patient arrived in ED. mg5 08:56 Triage completed. ap3 08:57 Arm band placed on right wrist. ap3 09:10 Keyur Singleton MD is Attending Physician. chema 09:14 Leigh Sawant, TIFFANY is Primary Nurse. kj2 09:30 Client placed on continuous cardiac and pulse oximetry monitoring. NIBP monitoring nj1 applied. quality assurance monitor body on. 09:30 EKG done, by ED staff, reviewed by Keyur Singleton MD. nj1 09:46 CT Abd/Pelvis - IV Contrast Only In Process Unspecified. EDMS 09:53 No provider procedures requiring assistance completed. Inserted saline lock: 20 gauge kj2 in right forearm, using aseptic technique. Blood collected. Flushed with 10 mL NS. 09:54 Patient has correct armband on for positive identification. Bed in low position. Call kj2 light in reach. call light, fall precautions. 09:55 Provided Education on: call light. kj2 09:56 Chest Single View XRAY In Process Unspecified. EDMS 09:59 Larry Rand is Hospitalizing Provider. [facility] 12:39 Patient admitted, IV remains in place. kj2 Administered Medications: 10:10 Drug: Famotidine IVP 20 mg IVP once; dilute with 10 mL 0.9% NaCl; give over 2 minutes kj2 Route: IVP; Site: right forearm; 12:40 Follow up: Response: No adverse reaction kj2 10:11 Drug: NS 0.9% IV 1000 ml IV at 1 bolus Per protocol; 1000 mL bolus Route: IV; Rate: 1 kj2 bolus; Site: right forearm; 11:57 Follow up: IV Status: Completed infusion; IV Intake: 1000ml nj1 10:11 Drug: Ondansetron IVP 4 mg IVP once; over 2 minutes Route: IVP; Site: right forearm; kj2 12:40 Follow up: Response: No adverse reaction kj2 10:11 Drug: morphine IVP or IV 4 mg IVP once over 4 mins Route: IVP; Infused Over: 4 mins; kj2 Site: right femoral; 12:40 Follow up: Response: No adverse reaction kj2 11:57 Drug: Piperacillin-Tazobactam IVPB 3.375 grams IVPB once over 60 mins; (mix in NS 100 nj1 mL) Route: IVPB; Infused Over: 60 mins; Site: right forearm; 21:25 Follow up: Response: No adverse reaction; IV Status: Completed infusion kj2 11:57 Drug: NS 0.9% IV 1000 ml IV at 125 ml/hr continuous Route: IV; Rate: 125 ml/hr; Site: nj1 right forearm; 21:25 Follow up: IV Status: Infusion continued upon admission kj2 Medication: 10:13 VIS not applicable for this client. kj2 Intake: 11:57 IV: 1000ml; Total: 1000ml. nj1 Outcome: 10:00 Decision to Hospitalize by Provider. chema 12:37 Condition: stable kj2 12:37 Instructed on the need for admit, 12:38 Admitted to OR accompanied by nurse, via wheelchair, Other report given to TIFFANY Stauffer kj2 12:41 Patient left the ED. kj2 Signatures: Dispatcher [employer] EDKeyur Hernandes MD MD cha Prokisch, Amanda RN RN ap3 Eugenia Bartlett RN RN nj1 Yadi Barger 5 Leigh Sawant, TIFFANY RN kj2 Corrections: (The following items were deleted from the chart) 10:12 10:10 NS 0.9% IV 1000 ml IV at 125 ml/hr in right forearm kj2 kj2
--- NOTE | 2024-04-07 10:02 | RAD REPORT ---
EXAM DESCRIPTION: RAD - Chest Single View - 04/07/2024 9:54 am CLINICAL HISTORY: ABDOMINAL DISTENTION Chest pain. COMPARISON: No comparisons FINDINGS: Portable technique limits examination quality. The lungs are grossly clear. The heart is normal in size. No displaced fractures. IMPRESSION: No acute intrathoracic process suspected.
[2024-04-07 10:18] LABS: Albumin 3.4 g/dL (3.4-5.0); Albumin/Globulin Ratio 0.8 (1.1-1.8); Anion Gap 9.8 mEq/L (5.0-15.0); Bilirubin Total 0.4 mg/dL (0.2-1.0); Globulin 4.1 g/dL (2.3-3.5); Potassium 3.8 mEq/L (3.5-5.1); Protein, Total 7.5 g/dL (6.4-8.2)
[2024-04-07 10:23] LABS: Specific Gravity 1.022 (1.005-1.030); Urine Bilirubin NEGATIVE (Negative); Urine Blood Negative (Negative); Urine Clarity Clear (Clear); Urine Color Colorless (Yellow); Urine Glucose NEGATIVE (Negative); Urine Ketones NEGATIVE (Negative); Urine Microscopic Reflex YN NO UMIC; Urine Nitrite NEGATIVE (Negative); Urine Protein NEGATIVE (Negative); Urine Urobilinogen Normal (Normal)
--- NOTE | 2024-04-07 10:42 | P.HP ---
Certification for Inpatient Patient admitted to: Inpatient With expected LOS: >2 Midnights Patient will require the following post-hospital care: None Practitioner: I am a practitioner with admitting privileges, knowledge of patient current condition, hospital course, and medical plan of care. Services: Services provided to patient in accordance with Admission requirements found in Title 42 Section 412.3 of the Code of Federal Regulations Patient History Date of Service: 04/07/24 Reason for admission: Acute appendicitis History of Present Illness: John Ortiz is a 53 year old male with no known pmhx who presents to the ED with chief complaint of abdominal pain since last night. He reports he has had a lot of bowel movements since his abdomen started to hurt. He denies fever, chills, chest pain, and shortness of breath. On examination, he is hypertensive, ambulated to the bathroom, in no acute distress, tenderness to RLQ. Initial vital BP 187 / 100; Pulse 70; Resp 17; Temp 98; Pulse Ox 100% Laboratory evaluation unremarkable CT abdomen pelvis reports "Acute appendicitis" Chest x-ray report "No acute intrathoracic process suspected." John will be admitted to hospitalist service for further treatment of acute appendicitis, Dr. Raphael consulted. Allergies No Known Allergies Allergy (Verified 04/07/24 14:32) Home Medications: NK [No Home Meds] 04/07/24 - Past Medical/Surgical History Past Medical History: Patient denies medical history Past Surgical History: Patient denies surgical history - Social History Smoking Status: Never smoker Alcohol use: No CD- Drugs: No Review of Systems Gastrointestinal: Abdominal Pain, Other (multiple bowel movements) Physical Examination - Physical Exam General: Alert, In no apparent distress, Oriented x3 HEENT: Atraumatic, Normocephalic, PERRLA Neck: Supple, 2+ carotid pulse no bruit Respiratory: Clear to auscultation bilaterally, Normal air movement Cardiovascular: Normal pulses, Regular rate/rhythm, Normal S1 S2 Capillary refill: <2 Seconds Gastrointestinal: Normal bowel sounds, Soft and benign, Non-distended, Tenderness Musculoskeletal: No clubbing Integumentary: No rashes Neurological: Normal gait, Normal speech, Normal tone - Studies Laboratory Data (last 24 hrs) 04/07/24 04/07/24 09:40 09:40 WBC 9.80 Hgb 14.3 Hct 41.4 Plt Count 225 Sodium 136 Potassium 3.8 BUN 14 Creatinine 0.98 Glucose 103 Total Bilirubin 0.4 AST 23 ALT 57 Alkaline Phosphatase 87 Lipase 24 Assessment and Plan - Plan Assessment and plan Acute appendicitis CT abdomen pelvis reports "Acute appendicitis" -Dr. Crooks consulted- surgery today -IV abx, zosyn -IVF -pain control -incentive spirometry Hypertensive -Monitor -likely start medication DVT ppx SCD Full code LOS 2 days Discharge Plan: Home Plan to discharge in: 48 Hours - Advance Directives Does patient have a Living Will: No Does patient have a Durable POA for Healthcare: No
[2024-04-07] MEDS ORDERED: ONDANSETRON 4 MG/2 ML VIAL IV PRN (10:59)
[2024-04-07] MEDS ORDERED: MORPHINE 2 MG/ML SYR IV PRN (11:02)
[2024-04-07] MEDS ORDERED: NA CHLORIDE 0.9% 100 ML ONE (11:39)
[2024-04-07] MEDS ORDERED: PIPERACIL/TAZO 3.375 GM VIAL IV ONE (11:40)
[2024-04-07] MEDS ORDERED: KETOROLAC 30 MG/ML INJ ONE (12:14)
[2024-04-07] MEDS ORDERED: ROCURONIUM 50 MG/5 ML VIAL IV ONE (12:14)
[2024-04-07] MEDS ORDERED: LIDOCAINE 1% MPF 5 ML VIAL ONE (12:14)
[2024-04-07] MEDS ORDERED: FENTANYL CITR 100 MCG/2 ML ONE (12:14)
[2024-04-07] MEDS ORDERED: MIDAZOLAM HCL 2 MG/2 ML INJ ONE (12:14)
[2024-04-07] MEDS ORDERED: propofoL 200 MG/20 ML VIAL IV ONE (12:14)
[2024-04-07] MEDS: NA CIT/CITRIC AC 30 ML ORAL UDC ONE (13:02)
--- NOTE | 2024-04-07 13:37 | P.CNS ---
Date of Consult: 04/07/24 PC: I was asked to see this 53-year-old male in regards to his right lower quadrant abdominal pain. HPC: Patient was at home yesterday evening, ate some pepperoni pizza with jalapenos on it. Shortly thereafter began experiencing some abdominal pain. However this morning the pain became much much worse, located to the right side of his abdomen. He presents now for diagnosis and treatment. PSHx: Negative PMHx: Negative Social Hx: No known allergies Sys R: No cough, wheeze, shortness of breath. No chest pain or palpitations. Says he is in pretty good shape. O/E: Awake alert labs are stable, looks unwell HEENT: Negative Chest: Chest movement equal bilaterally Abd: Tender in the right lower quadrant, mild guarding [place]: Intact Data: CT scan correlates with clinical diagnosis of acute abdomen with appendicitis Impression: Acute appendicitis Plan: I will take him to the operating room for laparoscopic possible open appendectomy. The risks of this procedure have been discussed. The possibility of bleeding, infection, injury to bowel blood vessels and surrounding structures was outlined. The possibility of abscess, and need for further surgeries and procedures was explained. He understands and wants to proceed.
[2024-04-07] MEDS ORDERED: Phenylephrine HCl 10 MG/ML 1 ML VIAL ONE (13:38)
[2024-04-07] MEDS ORDERED: EPHEDRINE SULF 50 MG/ML VIAL ONE (13:49)
--- NOTE | 2024-04-07 14:39 | P.OP ---
Preoperative diagnosis: Acute abdomen with appendicitis Postoperative diagnosis: The same Primary procedure: Laparoscopic appendectomy Anesthesia: General Estimated blood loss: Less than 10 cc Specimen: 1 appendix Operative Technique: The patient brought the operating room and placed supine on the table. After the induction of adequate general endotracheal anesthesia, there the abdomen was prepped with a DuraPrep solution, and he was draped in the usual aseptic manner. Attention was turned towards the umbilicus. A skin incision was made. This was brought down through the skin and subcutaneous tissue. The Visiport was then used to enter the peritoneal cavity and created pneumoperitoneum at approximately 12 mmHg. A 5 mm trocar was now placed on the right lateral side of the abdomen, and another between the umbilicus and the pubic symphysis. A pneumoperitoneum having been created the patient was then placed in Trendelenburg. The table was airplane to the left. We could visualize the right side of the abdomen. This patient's pain which had been about the level of the umbilicus was the actual spot that we can see the appendix stuck against the right lateral sidewall. The appendix extended down into the true pelvis. The cecum at this point was identified. We identified the appendix at its junction with the cecum. A window was made in the mesentery of the appendix. This was gradually developed. A linear stapler was now placed across the base of the appendix at its junction with the cecum and the instrument was fired. The mesentery was now isolated. A grasper was placed across the base of it to remove the amount of edema that was there present. The linear stapler was now placed across this area and fired detaching the appendix. The appendix was placed into an Endo Catch, and brought out through the umbilical trocar site. The eye was inspected to ensure adequate hemostasis. This having been done the umbilical trocar site was closed using the Endo Close and an absorbable suture. At this point the patient was returned to the neutral position on the OR table. The pneumoperitoneum was collapsed, the sutures tied, and the trocars were removed. Susie were then applied to the skin. At the end of the procedure the patient was in a stable condition when sent to the recovery room. Needle sponge and instrument count were correct. No drains were placed. Com Transferred to: Recovery Room Condition: Good
[2024-04-07 15:04] VITALS: O2SAT 95
[2024-04-07 15:28] VITALS: BMI 27.7
[2024-04-07] MEDS: NA CHLORIDE 0.9% 1,000 ML IV SCH (15:31)
[2024-04-07] MEDS: HYDROCODONE/APAP 7.5/325 MG TAB PO PRN (20:05)
[2024-04-08] MEDS: ACETAMINOPHEN 325 MG TABLET PO PRN (00:38)
[2024-04-08] MEDS: PIPER TAZO 3.375 GM in NA CHLORIDE 0.9% 100 ML IV SCH (00:39)
[2024-04-08 08:24] LABS: Anion Gap 6.9 mEq/L (5.0-15.0); Phosphorus 2.8 mg/dL (2.5-4.9); Potassium 3.9 mEq/L (3.5-5.1)
[2024-04-08 08:56] LABS: Absolute Eosinophils 0.1 K/uL (0-0.5); Absolute Monocytes 0.4 K/uL (0.1-1.3); Absolute Neutrophil 6.3 K/uL (1.8-8.0); Basophils % 0.5 % (0-1.3); Eosinophils % 1.1 % (0-4.4); Hematocrit 39.7 % (39.6-49.0); Hemoglobin 13.1 g/dL (13.6-17.9); Lymphocytes % 22.7 % (15.3-44.8); MCH 29.4 pg (27.0-35.0); MCV 89.2 fL (80-100); MPV 7.9 fL (7.6-11.3); Monocytes % 4.1 % (3.3-12.3); Neutrophils % 71.6 % (41.7-73.7); Platelets 271 thou/uL (152-406); RBC Red Blood Cell Count 4.45 M/uL (4.33-5.43)
[2024-04-08 09:10] VITALS: BP 143/83; TEMP 98.3
--- NOTE | 2024-04-08 09:28 | P.DS ---
Admission Date: 04/07/24 Discharge Date: 04/08/24 Reason for Admission: Acute appendicitis Brief History of Present Illness: John Ortiz is a 53 year old male with no known pmhx who presents to the ED with chief complaint of abdominal pain since last night. He reports he has had a lot of bowel movements since his abdomen started to hurt. He denies fever, chills, chest pain, and shortness of breath. On examination, he is hypertensive, ambulated to the bathroom, in no acute distress, tenderness to RLQ. Initial vital BP 187 / 100; Pulse 70; Resp 17; Temp 98; Pulse Ox 100% Laboratory evaluation unremarkable CT abdomen pelvis reports "Acute appendicitis" Chest x-ray report "No acute intrathoracic process suspected." John will be admitted to hospitalist service for further treatment of acute appendicitis, Dr. Raphael consulted. Vital Signs/Physical Exam: Temp Pulse Resp BP Pulse Ox 98.3 F 68 21 H 143/83 H 97 04/08/24 08:08 04/08/24 08:08 04/08/24 08:08 04/08/24 08:08 04/08/24 08:08 Laboratory Data at Discharge: WBC 8.90 thou/uL (4.3-10.9) 04/08/24 08:00 Hgb 13.1 g/dL (13.6-17.9) L D 04/08/24 08:00 Hct 39.7 % (39.6-49.0) 04/08/24 08:00 Plt Count 271 thou/uL (152-406) 04/08/24 08:00 Sodium 138 mEq/L (136-145) 04/08/24 08:00 Potassium 3.9 mEq/L (3.5-5.1) 04/08/24 08:00 BUN 13 mg/dL (7-18) 04/08/24 08:00 Creatinine 1.05 mg/dL (0.70-1.30) 04/08/24 08:00 Glucose 115 mg/dL (74-106) H 04/08/24 08:00 Phosphorus 2.8 mg/dL (2.5-4.9) 04/08/24 08:00 Magnesium 2.0 mg/dL (1.6-2.4) 04/08/24 08:00 Total Bilirubin 0.4 mg/dL (0.2-1.0) 04/07/24 09:40 AST 23 U/L (15-37) 04/07/24 09:40 ALT 57 U/L (16-61) 04/07/24 09:40 Alkaline Phosphatase 87 U/L (45-117) 04/07/24 09:40 Lipase 24 U/L (13-75) 04/07/24 09:40 Home Medications: Amox/Clavulanate [Augmentin 875-125 Tab] 875 mg PO BID 7 Days #14 tab 04/08/24 New Medications: Amox/Clavulanate [Augmentin 875-125 Tab] 875 mg PO BID 7 Days #14 tab Physician Discharge Instructions: John Ortiz was treated for appendicitis, surgery was on 04/07/[address] Raphael. Please follow-up with Dr. Ayoub in 1 week to address the adam at incision sites. Continue with antibiotic to complete the course of 7 days. 1. Please call and schedule a follow-up appointment with your PCP in 3-5 days - Please follow-up with your PCP for medication refills/adjustments 2. Please call and schedule a follow-up appointment with Dr. Raphael in one week 3. Continue advance to regular diet as tolerated 4. activity restrictions, Do not lift greater than 10 pounds for 3 days 5. Return to the ED if symptoms worsen New medications Augmentin 875 mg p.o. twice daily x 7 days Diet: Regular Activity: No lifting more than 10 lbs Followup: Kai Raphael MD [ACTIVE - CAN ADMIT] - NONE,NONE [Primary Care Provider] -
--- NOTE | 2024-04-08 13:09 | EKG ---
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
== END 2024-04-08 10:53 | disposition home or self-care (01) ==
LOC: ER 08:39 → INTOOBSV 10:59 → ERHOLD 10:59 → 2ND 14:00
PROVIDERS: ADMIT Internal Medicine; ATTEND Internal Medicine
PROC: 0DTJ4ZZ Resection of Appendix, Percutaneous Endoscopic Approach (ICD-10-PCS; principal; 2024-04-07 12:00)
DX: K35.80 Unspecified acute appendicitis (principal); R10.0 Acute abdomen; F17.210 Nicotine dependence, cigarettes, uncomplicated; I10 Essential (primary) hypertension
CPT/HCPCS: 93005; 85025 ×2; 80048; 36415; 83735; 84100; 82565; 88304; 81003; 83690; 80053; 74177; 71045; 94010; 99285; 44970; Q9967; J2704; J2001; J2371; J2543 ×3; J2250; J3010; J2405 ×2; J7030 ×5; G0378

== ENCOUNTER 2024-04-15 19:21 | Emergency (ER) | payer OTHER ==
[2024-04-15 20:10] LABS: Absolute Eosinophils 0.2 K/uL (0-0.5); Absolute Lymphocytes (CBC) 1.9 K/uL (0.7-4.9); Absolute Monocytes 0.6 K/uL (0.1-1.3); Absolute Neutrophil 5.5 K/uL (1.8-8.0); Basophils % 0.2 % (0-1.3); Eosinophils % 2.6 % (0-4.4); Hematocrit 40.1 % (39.6-49.0); Hemoglobin 13.7 g/dL (13.6-17.9); Lymphocytes % 23.5 % (15.3-44.8); MCH 30.1 pg (27.0-35.0); MCHC 34.2 g/dL (32.0-36.0); MCV 87.9 fL (80-100); MPV 7.2 fL (7.6-11.3); Monocytes % 7.2 % (3.3-12.3); Neutrophils % 66.5 % (41.7-73.7); Platelets 376 thou/uL (152-406); RBC Red Blood Cell Count 4.56 M/uL (4.33-5.43); Red Cell Distribution Width 13.5 % (12.1-15.2)
[2024-04-15] MEDS ORDERED: ONDANSETRON 4 MG/2 ML VIAL ONE (20:19)
[2024-04-15 20:20] LABS: Specific Gravity 1.015 (1.005-1.030); Sqamous Epithelial <5 /HPF (None Seen); Urine Bacteria <20 /HPF (<20); Urine Bilirubin NEGATIVE (Negative); Urine Blood Negative (Negative); Urine Clarity Clear (Clear); Urine Color Light-Yellow (Yellow); Urine Culture Reflex Order NOT NEEDED; Urine Glucose NEGATIVE (Negative); Urine Ketones NEGATIVE (Negative); Urine Microscopic Reflex YN ORDER UMIC; Urine Nitrite NEGATIVE (Negative); Urine Protein NEGATIVE (Negative); Urine RBC <5 /HPF (None Seen); Urine Urobilinogen Normal (Normal); Urine WBC <5 /HPF (<5)
[2024-04-15] MEDS ORDERED: MORPHINE 4 MG/ML SYR ONE (20:20)
[2024-04-15] MEDS ORDERED: NA CHLORIDE 0.9% 1,000 ML ONE (20:20)
--- NOTE | 2024-04-15 20:44 | RAD REPORT ---
EXAM DESCRIPTION: CTAbdomen Pelvis W Contrast - 04/15/2024 8:36 pm CLINICAL HISTORY: Abdominal pain. ABD PAIN COMPARISON: Abdomen Pelvis W Contrast dated 04/07/2024 TECHNIQUE: Venous phase CT imaging of the abdomen and pelvis was performed with 100 ml non-ionic IV contrast. All CT scans are performed using dose optimization technique as appropriate and may include automated exposure control or mA/KV adjustment according to patient size. FINDINGS: Mild atelectasis is present in both lung bases.Small hiatal hernia. The liver, spleen, pancreas, and kidneys are within normal limits. Bilateral adrenal masses likely ad enomas. No bowel obstruction, free air, free fluid or abscess. Moderate retained stool throughout the colon. Appendectomy. Surgical clips are present in the umbilical region. No evidence of significant lymphade nopathy. No suspicious bony findings. IMPRESSION: No acute intra-abdominal or pelvic finding.
[2024-04-15 21:15] LABS: ALT/SGPT 29 U/L (16-61); Albumin 3.4 g/dL (3.4-5.0); Albumin/Globulin Ratio 0.9 (1.1-1.8); Alkaline Phosphatase 96 U/L (45-117); Anion Gap 10.8 mEq/L (5.0-15.0); BUN Blood Urea Nitrogen 13 mg/dL (7-18); Bicarbonate 26 mEq/L (21-32); Bilirubin Total 0.4 mg/dL (0.2-1.0); Globulin 3.8 g/dL (2.3-3.5); Glomerular Filtration Rate 85 ml/min (=/>90); Glucose Level 113 mg/dL (74-106); Lipase 27 U/L (13-75); Potassium 3.8 mEq/L (3.5-5.1); Protein, Total 7.2 g/dL (6.4-8.2); Sodium Level 137 mEq/L (136-145)
[2024-04-15 21:16] LABS: AST/SGOT < 10 U/L (15-37)
--- NOTE | 2024-04-15 22:49 | EDPHYS ---
Physician Documentation [facility] Name: John Ortiz Age: 53 yrs Sex: Male : 1970 Arrival Date: 04/15/2024 Time: 19:21 Bed 12 Private MD: ED Physician Keyur Singleton HPI: 04/15 20:00 This 53 yrs old Male presents to ER via Ambulatory with complaints of Abdominal Pain. cp 20:00 The patient presents with abdominal pain that is diffuse. Onset: The symptoms/episode cp began/occurred gradually, and became worse today. Associated signs and symptoms: Pertinent positives: nausea. Historical: - Allergies: 19:28 No Known Allergies; jb4 - PMHx: 19:28 None; jb4 - PSHx: 19:28 Appendectomy; jb4 - Immunization history:: Adult Immunizations up to date. - Infectious Disease History:: Denies. - Social history:: Smoking status: Patient denies any tobacco usage or history of. ROS: 20:05 Constitutional: HX per HPI cp Exam: 20:05 Head/Face: Normocephalic, atraumatic. cp 20:05 Constitutional: The patient appears in no acute distress, alert, awake, non-toxic, well developed, well nourished, uncomfortable, 20:05 Eyes: Periorbital structures: appear normal, Conjunctiva: normal, Lids and lashes: appear normal, bilaterally, 20:05 Chest/axilla: Inspection: normal, Palpation: is normal, no crepitus, no tenderness, 20:05 Cardiovascular: Rate: normal, 20:05 Respiratory: the patient does not display signs of respiratory distress, Respirations: normal, no use of accessory muscles, no retractions, labored breathing, is not present, Breath sounds: are clear throughout, no decreased breath sounds, no stridor, no wheezing, 20:05 Abdomen/GI: Inspection: abdomen appears normal, Palpation: soft, in all quadrants, moderate abdominal tenderness, in all quadrants, Vital Signs: 19:26 BP 138 / 77; Pulse 71; Resp 16; Temp 98.6; Pulse Ox 94% ; Weight 97.52 kg; Height 6 ft. jb4 1 in. ; Pain 5/10; 20:30 BP 142 / 78; Pulse 66; Resp 17; Pulse Ox 93% on R/A; me1 21:19 BP 121 / 76; Pulse 65; Resp 15; Pulse Ox 94% on R/A; Pain 7/10; me1 22:00 BP 134 / 76; Pulse 63; Resp 16; Pulse Ox 100% on R/A; me1 23:00 BP 129 / 68; Pulse 67; Resp 16; Temp 98.1; Pulse Ox 100% ; me1 19:26 Body Mass Index 28.37 (97.52 kg, 185.42 cm) jb4 19:26 Pain Scale: Adult jb4 21:19 Pain Scale: Adult me1 MDM: 19:28 Patient medically screened. cp 22:48 Data reviewed: vital signs, nurses notes, lab test result(s), radiologic studies, CT cp scan. 04/15 19:36 Order name: CBC with Diff; Complete Time: 20:54 cp 04/15 20:54 Interpretation: Normal except: MPV 7.2. 04/15 19:36 Order name: CMP; Complete Time: 21:44 04/15 21:44 Interpretation: Normal except: GLUC 113; GFR 85; AST < 10; GLOB 3.8; A/G 0.9. 04/15 19:36 Order name: Lipase; Complete Time: 21:44 04/15 21:44 Interpretation: Reviewed. 04/15 19:36 Order name: Urinalysis w/ reflexes; Complete Time: 20:54 cp 04/15 19:38 Order name: CT Abd/Pelvis - IV Contrast Only; Complete Time: 20:54 04/15 20:55 Interpretation: Report reviewed. 04/15 19:36 Order name: IV Saline Lock; Complete Time: 20:03 04/15 19:36 Order name: Labs collected and sent; Complete Time: 20:03 cp Administered Medications: 20:28 Drug: NS 0.9% IV 1000 ml IV at 1 bolus Per protocol; 1000 mL bolus Route: IV; Rate: 1 me1 bolus; Site: right antecubital; 23:12 Follow up: Response: No adverse reaction; IV Status: Completed infusion ut1 20:28 Drug: Ondansetron IVP 4 mg IVP once; over 2 minutes Route: IVP; Site: right antecubital;me1 20:58 Follow up: Response: No adverse reaction; Nausea is decreased ut1 20:28 Drug: morphine IVP or IV 4 mg IVP once over 4 mins Route: IVP; Infused Over: 4 mins; me1 Site: right antecubital; 20:58 Follow up: Response: No adverse reaction; Pain is decreased me1 Disposition Summary: 04/15/24 22:49 Discharge Ordered Notes: Location: Home cp Problem: new cp Symptoms: have improved cp Condition: Stable cp Diagnosis - Abdominal pain, unspecified cp - Diarrhea, unspecified cp Followup: cp - With: Kai Raphael MD - When: 2 - 3 days - Reason: Recheck today's complaints Discharge Instructions: - Discharge Summary Sheet cp - Abdominal Pain, Adult cp - Food Choices to Help Relieve Diarrhea, Adult cp - Diarrhea, Adult cp Forms: - Medication Reconciliation Form cp - Antibiotic Education cp - Prescription Opioid Use cp - Patient Portal Instructions cp - Leadership Thank You Letter cp Prescriptions: - Zofran 4 mg Oral Tablet - take 1 tablet ORAL route every 12 hours As needed; 20 tablet; Refills: 0, cp Product Selection Permitted - dicyclomine 20 mg Oral tablet - take 1 tablet ORAL route 4 times per day; 30 tablet; Refills: 0, Product cp Selection Permitted Signatures: Dispatcher [employer] Keyur Steen PA PA cp Kai Bautista, RN RN jb4 Conchita Saunders RN RN me1
--- NOTE | 2024-04-15 22:49 | ER ---
Nurse's Notes [facility] Name: John Ortiz Age: 53 yrs Sex: Male : 1970 Arrival Date: 04/15/2024 Time: 19:21 Bed 12 Private MD: Diagnosis: Abdominal pain, unspecified;Diarrhea, unspecified Presentation: 04/15 19:26 Chief complaint: Patient states: I had my appendix removed last week and am having pain jb4 behind the incision site and having diarrhea for the past 3 days. Coronavirus screen: At this time, the client does not indicate any symptoms associated with coronavirus-19. Ebola Screen: No symptoms or risks identified at this time. Initial Sepsis Screen: Does the patient meet any 2 criteria? No. Patient's initial sepsis screen is negative. Does the patient have a suspected source of infection? No. Patient's initial sepsis screen is negative. Risk Assessment: Do you want to hurt yourself or someone else? Patient reports no desire to harm self or others. Onset of symptoms was April 15, 2024. Transition of care: patient was not received from another setting of care. 19:26 Method Of Arrival: Ambulatory jb4 19:26 Acuity: LYDIA 3 jb4 Triage Assessment: 19:28 General: Appears in no apparent distress. uncomfortable, Behavior is calm, cooperative, jb4 appropriate for age. Pain: Complains of pain in abdomen Pain currently is 5 out of 10 on a pain scale. Quality of pain is described as stabbing. EENT: No signs and/or symptoms were reported regarding the EENT system. Neuro: [place] Agitation-Sedation Scale (RASS): 0 - Alert and Calm Level of Consciousness is awake, alert, obeys commands, Oriented to person, place, time, situation. Cardiovascular: Patient's skin is warm and dry. Respiratory: Airway is patent Respiratory effort is even, unlabored, Respiratory pattern is regular, symmetrical. GI: Abdomen is flat, non-distended, surgical incisions covered by bandage on abdomen. : No signs and/or symptoms were reported regarding the genitourinary system. Derm: Skin is intact, Skin is pink, warm \T\ dry. Musculoskeletal: Circulation, motion, and sensation intact. Range of motion: intact in all extremities. Historical: - Allergies: 19:28 No Known Allergies; jb4 - PMHx: 19:28 None; jb4 - PSHx: 19:28 Appendectomy; jb4 - Immunization history:: Adult Immunizations up to date. - Infectious Disease History:: Denies. - Social history:: Smoking status: Patient denies any tobacco usage or history of. Screenin:30 [facility] ED Fall Risk Assessment (Adult) History of falling in the last 3 months, me1 including since admission No falls in past 3 months (0 pts) Confusion or Disorientation No (0 pts) Intoxicated or Sedated No (0 pts) Impaired Gait No (0 pts) Mobility Assist Device Used No (0 pt) Altered Elimination No (0 pt) Score/Fall Risk Level 0 - 2 = Low Risk Maintained a safe environment, Provided non-skid footwear, Hourly rounding (assess needs \T\ fall precautionary measures) done. Abuse screen: Denies threats or abuse. Nutritional screening: No deficits noted. Tuberculosis screening: No symptoms or risk factors identified. Assessment: 19:30 General: Appears uncomfortable, well groomed, well developed, well nourished, Behavior me1 is calm, cooperative, appropriate for age, Reports I had my appendix removed last week and am having pain behind the incision site and having diarrhea for the past 3 days. Pain: Complains of pain in abdomen Pain does not radiate. Pain currently is 7 out of 10 on a pain scale. Quality of pain is described as crampy, shooting, Pain began 2-3 days ago. Is continuous. Neuro: Level of Consciousness is awake, alert, obeys commands, Oriented to person, place, time, situation, Appropriate for age. Cardiovascular: Patient's skin is warm and dry. Respiratory: Airway is patent Respiratory effort is even, unlabored, Respiratory pattern is regular, symmetrical. GI: Abdomen is distended, Bowel sounds present X 4 quads. Abd is soft X 4 quads. : No signs and/or symptoms were reported regarding the genitourinary system. EENT: No signs and/or symptoms were reported regarding the EENT system. Derm: Skin is intact, is healthy with good turgor, Skin is pink, warm \T\ dry. Musculoskeletal: No signs and/or symptoms reported regarding the musculoskeletal system. Vital Signs: 19:26 BP 138 / 77; Pulse 71; Resp 16; Temp 98.6; Pulse Ox 94% ; Weight 97.52 kg; Height 6 ft. jb4 1 in. ; Pain 5/10; 20:30 BP 142 / 78; Pulse 66; Resp 17; Pulse Ox 93% on R/A; me1 21:19 BP 121 / 76; Pulse 65; Resp 15; Pulse Ox 94% on R/A; Pain 7/10; me1 22:00 BP 134 / 76; Pulse 63; Resp 16; Pulse Ox 100% on R/A; me1 23:00 BP 129 / 68; Pulse 67; Resp 16; Temp 98.1; Pulse Ox 100% ; me1 19:26 Body Mass Index 28.37 (97.52 kg, 185.42 cm) jb4 19:26 Pain Scale: Adult jb4 21:19 Pain Scale: Adult ne1 ED Course: 19:23 Patient arrived in ED. mr 19:27 Keyur Tellez PA is PHCP. cp 19:27 Keyur Singleton MD is Attending Physician. cp 19:28 Triage completed. jb4 19:28 Arm band placed on right wrist. jb4 19:30 Patient has correct armband on for positive identification. Bed in low position. Call ne1 light in reach. Side rails up X 1. Provided Education on: POC. Verbalized understanding. . Client placed on continuous cardiac and pulse oximetry monitoring. NIBP monitoring applied. Pulse ox on. NIBP on. 19:30 No provider procedures requiring assistance completed. me1 19:35 Conchita Saunders, RN is Primary Nurse. ne1 20:03 CBC with Diff Sent. vk 20:03 CMP Sent. vk 20:03 Lipase Sent. vk 20:03 Urinalysis w/ reflexes Sent. vk 20:03 Initial lab(s) drawn, by ne, sent to lab. Urine collected: clean catch specimen, clear. vk Inserted saline lock: 22 gauge in right antecubital area, using aseptic technique. Blood collected. Flushed with 10 mL NS. 20:37 CT Abd/Pelvis - IV Contrast Only In Process Unspecified. EDMS 22:47 Kai Raphael MD is Referral Physician. cp 23:12 IV discontinued, intact, bleeding controlled, No redness/swelling at site. Pressure me1 dressing applied. Administered Medications: 20:28 Drug: NS 0.9% IV 1000 ml IV at 1 bolus Per protocol; 1000 mL bolus Route: IV; Rate: 1 me1 bolus; Site: right antecubital; 23:12 Follow up: Response: No adverse reaction; IV Status: Completed infusion me1 20:28 Drug: Ondansetron IVP 4 mg IVP once; over 2 minutes Route: IVP; Site: right antecubital;me1 20:58 Follow up: Response: No adverse reaction; Nausea is decreased me1 20:28 Drug: morphine IVP or IV 4 mg IVP once over 4 mins Route: IVP; Infused Over: 4 mins; me1 Site: right antecubital; 20:58 Follow up: Response: No adverse reaction; Pain is decreased me1 Medication: 19:30 VIS not applicable for this client. me1 Outcome: 22:49 Discharge ordered by MD. cp 23:12 Discharged to home ambulatory, me1 23:12 Condition: stable 23:12 Instructed on discharge instructions, follow up and referral plans. medication usage, Demonstrated understanding of instructions, follow-up care, medications, Prescriptions given X 2, 23:12 Patient left the ED. me1 Signatures: Dispatcher [employer] EDMS Katie Raza, Reg Reg mr Keyur Tellez PA PA cp Bryson, James, RN RN jb4 Conchita Saunders, TIFFANY RN me1 Kimberly Cole Corrections: (The following items were deleted from the chart) 20:56 19:26 Chief complaint: Patient states: I had my appendix removed last week and am me1 having pain behind the incision site and having diarrhea for the past 3 days. jb4
[2024-04-15 23:28] VITALS: O2SAT 100
[2024-04-15 23:30] VITALS: BP 129/68; TEMP 98.1
== END 2024-04-15 23:12 | disposition home or self-care (01) ==
LOC: ER 19:21
DX: R10.9 Unspecified abdominal pain (principal); R19.7 Diarrhea, unspecified
CPT/HCPCS: 96361; 85025; 81001; 36415; 83690; 80053; 74177; 96375; 96374; 99284; Q9967; J2405; J7030

== ENCOUNTER 2024-06-14 23:25 | Inpatient (IN) | payer OTHER ==
[2024-06-15 00:31] LABS: Absolute Basophils 0.1 K/uL (0-0.5); Absolute Eosinophils 0.2 K/uL (0-0.5); Absolute Lymphocytes (CBC) 2.2 K/uL (0.7-4.9); Absolute Monocytes 0.5 K/uL (0.1-1.3); Absolute Neutrophil 6.7 K/uL (1.8-8.0); Basophils % 0.8 % (0-1.3); Eosinophils % 1.6 % (0-4.4); Hemoglobin 14.8 g/dL (13.6-17.9); Lymphocytes % 23.3 % (15.3-44.8); MCH 31.2 pg (27.0-35.0); MCHC 34.4 g/dL (32.0-36.0); MCV 90.8 fL (80-100); MPV 7.2 fL (7.6-11.3); Monocytes % 4.7 % (3.3-12.3); Neutrophils % 69.6 % (41.7-73.7); Nucleated Red Blood Cells % 0.1 % (0-0); Platelets 251 thou/uL (152-406); RBC Red Blood Cell Count 4.74 M/uL (4.33-5.43); Red Cell Distribution Width 13.8 % (12.1-15.2)
[2024-06-15] MEDS ORDERED: ASPIRIN 81 MG CHEWABLE TABLET ONE (00:34)
[2024-06-15 00:38] LABS: PT Prothrombin Time 10.9 SECONDS (9.4-12.5); Protime INR 0.97
[2024-06-15 00:49] LABS: ALT/SGPT 22 U/L (16-61); AST/SGOT 11 U/L (15-37); Albumin 3.3 g/dL (3.4-5.0); Albumin/Globulin Ratio 0.9 (1.1-1.8); Alkaline Phosphatase 71 U/L (45-117); Anion Gap 9.7 mEq/L (5.0-15.0); BUN Blood Urea Nitrogen 14 mg/dL (7-18); Bicarbonate 25 mEq/L (21-32); Bilirubin Total 0.2 mg/dL (0.2-1.0); Globulin 3.6 g/dL (2.3-3.5); Glomerular Filtration Rate 73 ml/min (=/>90); Glucose Level 112 mg/dL (74-106); Magnesium 2.1 mg/dL (1.6-2.4); NT PRO-BNP 189 pg/mL (<125); Potassium 3.7 mEq/L (3.5-5.1); Protein, Total 6.9 g/dL (6.4-8.2); Sodium Level 137 mEq/L (136-145)
[2024-06-15 00:53] LABS: Bilirubin Direct < 0.2 mg/dL (0-0.2)
--- NOTE | 2024-06-15 01:04 | ER ---
Nurse's Notes [facility] Name: John Ortiz Age: 54 yrs Sex: Male : 1970 Arrival Date: 06/14/2024 Time: 23:25 Bed 14 Private MD: Diagnosis: Chest pain, unspecified;Elevated blood-pressure reading, without diagnosis of hypertension;Tobacco use Presentation: 06/14 23:50 Chief complaint: Patient states: hes been having intermittent chest pain in the center me1 of his chest that radiates down both arms. At worst it is 8/10. No c/o pain at this time. 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 Coronavirus screen: Vaccine status: Patient reports receiving the 2nd dose of the covid vaccine. Ebola Screen: No symptoms or risks identified at this time. Initial Sepsis Screen: Does the patient meet any 2 criteria? No. Patient's initial sepsis screen is negative. Does the patient have a suspected source of infection? No. Patient's initial sepsis screen is negative. Risk Assessment: Do you want to hurt yourself or someone else? Patient reports no desire to harm self or others. Onset of symptoms is unknown. 23:50 Method Of Arrival: Ambulatory me1 23:50 Acuity: LYDIA 3 me1 Triage Assessment: 23:52 General: Appears comfortable, well groomed, well developed, well nourished, Behavior is me1 calm, cooperative, appropriate for age, Reports. Pain: Denies pain. Complains of pain in chest Pain radiates to right arm and left arm Pain currently is 0 out of 10 on a pain scale. at worst was 8 out of 10 on a pain scale. Quality of pain is described as sharp, shooting, Pain began suddenly, Is intermittent. Pain: Aggravated by Stress. EENT: No signs and/or symptoms were reported regarding the EENT system. Neuro: Level of Consciousness is awake, alert, obeys commands, Oriented to person, place, time, situation, Appropriate for age. Cardiovascular: Patient's skin is warm and dry. Respiratory: Airway is patent Respiratory effort is even, unlabored, Respiratory pattern is regular, symmetrical. GI: No signs and/or symptoms were reported involving the gastrointestinal system. : No signs and/or symptoms were reported regarding the genitourinary system. Derm: Skin is intact, is healthy with good turgor, Skin is pink, warm \T\ dry. Musculoskeletal: No signs and/or symptoms reported regarding the musculoskeletal system. Historical: - Allergies: 23:52 No Known Allergies; me1 - PMHx: 23:52 None; me1 - PSHx: 23:52 Appendectomy; me1 - Immunization history:: Adult Immunizations up to date. - Infectious Disease History:: Denies. - Social history:: Smoking status: Patient reports the use of cigarette tobacco products, smokes one pack cigarettes per day. Screenin:54 [facility] ED Fall Risk Assessment (Adult) History of falling in the last 3 months, me1 including since admission No falls in past 3 months (0 pts) Confusion or Disorientation No (0 pts) Intoxicated or Sedated No (0 pts) Impaired Gait No (0 pts) Mobility Assist Device Used No (0 pt) Altered Elimination No (0 pt) Score/Fall Risk Level 0 - 2 = Low Risk Maintained a safe environment, Provided non-skid footwear, Hourly rounding (assess needs \T\ fall precautionary measures) done. Abuse screen: Denies threats or abuse. Nutritional screening: No deficits noted. Tuberculosis screening: No symptoms or risk factors identified. Assessment: 06/15 00:25 General: Appears in no apparent distress. Behavior is calm, cooperative, appropriate dd2 for age. Pain: Complains of pain in chest and left arm Pain currently is 6 out of 10 on a pain scale. Pain began 2 months ago approx. Pain: Pain radiates to left arm and right arm. Neuro: Level of Consciousness is awake, alert, obeys commands, Oriented to person, place, time, situation, Appropriate for age Moves all extremities. Gait is steady. Cardiovascular: Reports chest pain, Heart tones S1 S2 Patient's skin is warm and dry. Chest pain is described as diffuse, quality is sharp. Respiratory: Airway is patent Respiratory effort is even, unlabored, Respiratory pattern is regular, symmetrical, Breath sounds are clear bilaterally. GI: No deficits noted. No signs and/or symptoms were reported involving the gastrointestinal system. : No deficits noted. No signs and/or symptoms were reported regarding the genitourinary system. EENT: No deficits noted. No signs and/or symptoms were reported regarding the EENT system. Derm: No deficits noted. No signs and/or symptoms reported regarding the dermatologic system. Musculoskeletal: No signs and/or symptoms reported regarding the musculoskeletal system. Vital Signs: 06/14 23:50 BP 151 / 93; Pulse 92; Resp 18; Temp 97.9; Pulse Ox 96% ; Weight 97.52 kg; Height 6 ft. me1 1 in. ; Pain 0/10; 06/15 00:30 BP 135 / 92; Pulse 87; Resp 16; Pulse Ox 94% on R/A; dd2 01:27 BP 146 / 94; Pulse 78; Resp 16; Pulse Ox 94% ; dd2 02:12 BP 154 / 98; Pulse 80; Resp 16; Pulse Ox 95% on R/A; dd2 06/14 23:50 Body Mass Index 28.37 (97.52 kg, 185.42 cm) me1 06/14 23:50 Pain Scale: Adult me1 [place] Coma Score: 00:25 Eye Response: spontaneous(4). Motor Response: obeys commands(6). Verbal Response: dd2 oriented(5). Total: 15. ED Course: 06/14 23:28 Patient arrived in ED. mr 23:29 Kyra Giron PA-C is PHCP. sb4 23:29 Keyur Singleton MD is Attending Physician. sb4 23:50 Conchita Saunders, TIFFANY is Primary Nurse. me1 23:52 Triage completed. me1 23:52 Arm band placed on Patient placed in an exam room. me1 23:54 Patient has correct armband on for positive identification. Bed in low position. Call me1 light in reach. Side rails up X 1. Provided Education on: POC. Verbalized understanding.. Client placed on continuous cardiac and pulse oximetry monitoring. NIBP monitoring applied. 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 Pulse ox on. NIBP on. 23:54 No provider procedures requiring assistance completed. Patient maintains SpO2 me1 saturation greater than 95% on room air. 06/15 00:03 EKG done, by ED staff, reviewed by Kyra Giron PA-C. me1 00:30 Initial lab(s) drawn, by me, sent to lab. Inserted saline lock: 20 gauge in right dd2 antecubital area, using aseptic technique. Blood collected. Flushed with 10 mL NS. 00:36 XRAY Chest (1 view) In Process Unspecified. EDMS 01:03 Nathan Chandler MD is Hospitalizing Provider. sb4 03:04 Patient admitted, IV remains in place. dd2 Administered Medications: 00:36 Drug: Aspirin PO Chewable Tablet 324 mg PO once; 81 mg tablets x 4 Route: PO; dd2 01:06 Follow up: Response: No adverse reaction dd2 Medication: 06/14 23:54 VIS not applicable for this client. me1 Outcome: 06/15 01:03 Decision to Hospitalize by Provider. sb4 03:04 Admitted to Med/surg accompanied by tech, via wheelchair, with chart, dd2 03:04 Condition: stable 03:04 Instructed on the need for admit, 03:22 Patient left the ED. dd2 Signatures: Dispatcher [employer] EDMS Katie Raza, Reg Reg Kyra Giron, PA-C PAFred sb4 Conchita Saunders, RN RN me1 KRIS ALMANZAR RN RN dd2 Corrections: (The following items were deleted from the chart) 06/14 23:54 23:54 General: me1 me1
--- NOTE | 2024-06-15 01:04 | EDPHYS ---
Physician Documentation [facility] Name: John Ortiz Age: 54 yrs Sex: Male : 1970 Arrival Date: 06/14/2024 Time: 23:25 Bed 14 Private MD: ED Physician Keyur Singleton HPI: 06/14 23:50 This 54 yrs old Male presents to ER via Unassigned with complaints of Chest Pain. sb4 23:51 The patient or guardian reports chest pain that is located primarily in the substernal sb4 area. Onset: 3 month(s) ago, and became worse yesterday. The pain radiates to both arms. Associated signs and symptoms: The patient has no apparent associated signs or symptoms. The chest pain is described as "swallowing something that goes down slowly". Duration: The patient or guardian reports multiple episodes, that have now resolved, that are intermittent, occur with stress. Modifying factors: The symptoms are alleviated by rest, the symptoms are aggravated by emotionally stressful situations. Severity of pain: At its worst the pain was a 8 / 10 in the emergency department the pain has improved is a 0 / 10. Historical: - Allergies: 23:52 No Known Allergies; me1 - PMHx: 23:52 None; me1 - PSHx: 23:52 Appendectomy; me1 - Immunization history:: Adult Immunizations up to date. - Infectious Disease History:: Denies. - Social history:: Smoking status: Patient reports the use of cigarette tobacco products, smokes one pack cigarettes per day. ROS: 23:53 Constitutional: Negative for fever, chills, and weight loss, sb4 23:53 Cardiovascular: Positive for chest pain, 23:53 All other systems are negative, Exam: 23:53 Constitutional: This is a well developed, well nourished patient who is awake, alert, sb4 and in no acute distress. Head/Face: Normocephalic, atraumatic. Eyes: Extra-ocular motions intact. Periorbital areas with no swelling, redness, or edema. ENT: Mucous membranes moist. Cardiovascular: Regular rate and rhythm with a normal S1 and S2. Respiratory: Lungs have equal breath sounds bilaterally, clear to auscultation and percussion. No rales, rhonchi or wheezes noted. No increased work of breathing, no retractions or nasal flaring. Abdomen/GI: Soft, non-tender, no distension. Skin: Warm, dry with normal turgor. Normal color with no rashes, no lesions, and no evidence of cellulitis. Vital Signs: 23:50 BP 151 / 93; Pulse 92; Resp 18; Temp 97.9; Pulse Ox 96% ; Weight 97.52 kg; Height 6 ft. me1 1 in. ; Pain 0/10; 06/15 00:30 BP 135 / 92; Pulse 87; Resp 16; Pulse Ox 94% on R/A; dd2 01:27 BP 146 / 94; Pulse 78; Resp 16; Pulse Ox 94% ; dd2 02:12 BP 154 / 98; Pulse 80; Resp 16; Pulse Ox 95% on R/A; dd2 06/14 23:50 Body Mass Index 28.37 (97.52 kg, 185.42 cm) me1 06/14 23:50 Pain Scale: Adult me1 [place] Coma Score: 00:25 Eye Response: spontaneous(4). Motor Response: obeys commands(6). Verbal Response: dd2 oriented(5). Total: 15. MDM: 06/14 23:40 Medical Screening Exam initiated sb4 06/15 00:55 The patient was given aspirin in the Emergency Department. Scoring Tools HEART Score: sb4 History: ECG: Age: Risk Factors: 1 or 2 risk factors (1), Troponin: Total Score = 2. 01:02 Data reviewed: vital signs, nurses notes, lab test result(s), EKG, radiologic studies, sb4 and as a result, I will admit patient. Consideration of Admission/Observation Patient was admitted/placed on observation. Counseling: I had a detailed discussion with the patient and/or guardian regarding the historical points, exam findings, and any diagnostic results supporting the discharge/admit diagnosis, the presence of at least one elevated blood pressure reading (>120/80) during this emergency department visit, lab results, radiology results, the need for further work-up and treatment in the hospital. 06/14 23:50 Order name: Basic Metabolic Panel; Complete Time: 00:54 sb4 06/14 23:50 Order name: CBC with Diff; Complete Time: 00:34 sb4 06/14 23:50 Order name: LFT's; Complete Time: 00:54 sb4 06/14 23:50 Order name: Magnesium; Complete Time: 00:54 sb4 06/14 23:50 Order name: NT PRO-BNP; Complete Time: 00:54 sb4 06/14 23:50 Order name: PT-INR; Complete Time: 00:54 sb4 06/14 23:50 Order name: Troponin HS; Complete Time: 00:54 sb4 06/15 02:10 Order name: Urinalysis w/ reflexes EDMS 06/15 02:10 Order name: CBC with Automated Diff EDMS 06/15 02:10 Order name: CBC with Automated Diff EDMS 06/15 02:10 Order name: Comprehensive Metabolic Panel EDMS 06/15 02:10 Order name: Comprehensive Metabolic Panel EDMS 06/15 02:10 Order name: Troponin High Sensitivity EDMS 06/15 02:10 Order name: Troponin High Sensitivity EDMS 06/15 02:10 Order name: Troponin High Sensitivity EDMS 06/15 02:10 Order name: Troponin High Sensitivity EDMS 06/14 23:50 Order name: XRAY Chest (1 view) sb4 06/15 02:12 Order name: Chest For Pe Angio EDMS 06/14 23:50 Order name: EKG; Complete Time: 23:51 sb4 06/15 02:10 Order name: CONS Physician Consult EDMT 06/14 23:50 Order name: Cardiac monitoring; Complete Time: 00:03 sb4 06/14 23:50 Order name: EKG - Nurse/Tech; Complete Time: 00:03 sb4 06/14 23:50 Order name: IV Saline Lock; Complete Time: 00:30 sb4 06/14 23:50 Order name: Labs collected and sent; Complete Time: 00:30 sb4 06/14 23:50 Order name: O2 Per Protocol; Complete Time: 00:30 sb4 06/14 23:50 Order name: O2 Sat Monitoring; Complete Time: 00:30 sb4 EC:04 Rate is 93 beats/min. Rhythm is regular, Normal Sinus Rhythm. FL interval is normal at sb4 128 msec. QRS interval is normal at 100 msec. QT interval is normal at 366 msec. No Q waves. T waves are Normal. No ST changes noted. Clinical impression: No evidence of ischemia. Interpreted by me. Reviewed by me. Administered Medications: 00:36 Drug: Aspirin PO Chewable Tablet 324 mg PO once; 81 mg tablets x 4 Route: PO; dd2 01:06 Follow up: Response: No adverse reaction dd2 Disposition Summary: 06/15/24 01:03 Hospitalization Ordered Notes: Hospitalization Status: Observation sb4 Provider: Nathan Chandler sb4 Location: Telemetry/MedSurg (observation) sb4 Condition: Stable sb4 Problem: an ongoing problem sb4 Symptoms: have improved sb4 Bed/Room Type: Standard sb4 Room Assignment: 223(06/15/24 02:21) vk Diagnosis - Chest pain, unspecified sb4 - Elevated blood-pressure reading, without diagnosis of hypertension sb4 - Tobacco use sb4 Forms: - Medication Reconciliation Form sb4 - SBAR form sb4 - Leadership Thank You Letter sb4 Signatures: Dispatcher [employer] EDMS Kyra Giron PA-C PA-C sb4 Conchita Saunders, TIFFANY RN me1 Kimberly Cole DIANA, RN RN dd2 Corrections: (The following items were deleted from the chart) 06/14 23:51 23:51 BASIC METABOLIC PANEL+C.LAB.BRZ ordered. EDMS EDMS 23:51 23:51 CBC+H.LAB.BRZ ordered. EDMS EDMS 23:51 23:51 HEPATIC FUNCTION+C.LAB.BRZ ordered. EDMS EDMS 23:51 23:51 MAGNESIUM+C.LAB.BRZ ordered. EDMS EDMS 23:51 23:51 PROBNP+C.LAB.BRZ ordered. EDMS EDMS 23:51 23:51 PROTIME (+INR)+COAG.LAB.BRZ ordered. EDMS EDMS 23:51 23:51 Troponin High Sensitivity+C.LAB.BRZ ordered. EDMS EDMS 23:51 23:51 Chest Single View+RAD.RAD.BRZ ordered. EDMS EDMS 06/15 02:21 01:03 sb4 vk
--- NOTE | 2024-06-15 02:01 | P.HP ---
Certification for Inpatient Patient admitted to: Observation With expected LOS: <2 Midnights Practitioner: I am a practitioner with admitting privileges, knowledge of patient current condition, hospital course, and medical plan of care. Services: Services provided to patient in accordance with Admission requirements found in Title 42 Section 412.3 of the Code of Federal Regulations Patient History Date of Service: 06/15/24 Reason for admission: CP History of Present Illness: 54 yrs old Male no significant past medical history presents to ER with complaints of Chest Pain. Chest pain that is located primarily in the substernal area started 3 months ago and has been progressively getting worse yesterday.The pain radiates to both arms. The chest pain is described as "swallowing something that goes down slowly". intermittent, occur with stress. Modifying factors: The symptoms are alleviated by rest, the symptoms are aggravated by emotionally stressful situations. The pain was a in the emergency department Allergies No Known Allergies Allergy (Verified 06/15/24 03:29) Home Medications: NK [No Home Meds] 06/15/24 - Past Medical/Surgical History Diabetic: No - Social History Alcohol use: No CD- Drugs: No Caffeine use: Yes Review of Systems 10-point ROS is otherwise unremarkable Physical Examination - Vital Signs Temperature: 98.2 F Blood Pressure: 136/76 Pulse: 78 Respirations: 18 Pulse Ox (%): 94 - Physical Exam General: Alert, In no apparent distress, Oriented x3 HEENT: Atraumatic, Normocephalic Neck: Supple Respiratory: Clear to auscultation bilaterally, Normal air movement Cardiovascular: Normal pulses, Regular rate/rhythm, Normal S1 S2 Capillary refill: <2 Seconds Gastrointestinal: Soft and benign, W/out hepatosplenomegaly Musculoskeletal: No clubbing, No swelling Integumentary: No rashes Neurological: Normal gait, Normal speech, Normal strength at 5/5 x4 extr, Cranial nerves 3-12 intact, Normal reflexes 2+ Lymphatics: No axilla or inguinal lymphadenopathy - Studies Laboratory Data (last 24 hrs) 06/15/24 06/15/24 06/15/24 00:12 00:12 00:12 WBC 9.60 Hgb 14.8 Hct 43.0 Plt Count 251 PT 10.9 INR 0.97 Sodium 137 Potassium 3.7 BUN 14 Creatinine 1.17 Glucose 112 H Magnesium 2.1 Total Bilirubin 0.2 AST 11 L ALT 22 Alkaline Phosphatase 71 Assessment and Plan - Plan Chest pain to rule out ACS Will trend cardiac enzymes Will monitor telemetry Started on aspirin and statin EKG did not show any acute changes suggestive of ischemia Patient denies any chest pain Will get an echocardiogram Cardiology consult Will get a CT of the chest GI/DVT prophylaxis Advanced directive full code Discharge Plan: Home Plan to discharge in: 24 Hours - Advance Directives Does patient have a Living Will: No Does patient have a Durable POA for Healthcare: No - Code Status/Comfort Care Code Status: Full Code Time Spent Managing Pts Care (In Minutes): 48
[2024-06-15] MEDS ORDERED: ACETAMINOPHEN 325 MG TABLET PO PRN (02:03)
[2024-06-15] MEDS ORDERED: ONDANSETRON 4 MG/2 ML VIAL IV PRN (02:03)
[2024-06-15] MEDS ORDERED: HYDROCODONE/APAP 5/325 MG TAB PO PRN (02:08)
[2024-06-15] MEDS ORDERED: MORPHINE 2 MG/ML SYR IV PRN (02:08)
[2024-06-15 04:22] VITALS: BMI 28.0
--- NOTE | 2024-06-15 04:53 | RAD REPORT ---
EXAM: XR Chest, 1 View CLINICAL HISTORY: The patient is 54 years old and is Male; CHEST PAIN TECHNIQUE: Frontal view of the chest. COMPARISON: No relevant prior studies available. FINDINGS: LUNGS: Minimal opacity in the left lower lobe is present. No consolidation. PLEURAL SPACE: Unremarkable. No pneumothorax. HEART: Unremarkable. No cardiomegaly. MEDIASTINUM: Unremarkable. Normal mediastinal contour. BONES/JOINTS: Unremarkable. No acute fracture. UPPER ABDOMEN: Unremarkable as visualized. IMPRESSION: Findings suggest left lower lobe atelectasis. Electronically signed by: Peggy Ferraro MD 06/15/2024 01:59 AM CDT RP Due to temporary technical issues with the PACS/[employer] reporting system, reports are being navid d by the in-house radiologist without review as a courtesy to ensure prompt reporting the interpreting radiologist is fully responsible for the content of the report. Transcribed Date/Time: 06/15/2024 4:53 AM
--- NOTE | 2024-06-15 05:01 | RAD REPORT ---
EXAM: CT Angiography Chest With Intravenous Contrast CLINICAL HISTORY: The patient is 54 years old and is Male; CP TECHNIQUE: Axial computed tomographic angiography images of the chest with intravenous contrast. Sagittal and coronal reformatted images were created and reviewed. This CT exam was performed using one or more of the following dose reduction techniques: automated exposure control, adjustmen t of the mA and/or kV according to patient size, and/or use of iterative reconstruction technique. MIP reconstructed images were created and reviewed. COMPARISON: No relevant prior studies available. FINDINGS: Pulmonary arteries: No PE identified. Aorta: No acute findings. No thoracic aortic aneurysm. Lungs: Bilateral lower lobe dependent atelectasis. Paraseptal emphysema. No mass. Pleural space: No significant pleural fluid. No pneumothorax. Heart: No cardiomegaly. No significant pericardial effusion. No evidence of RV dysfunction. Bones/joints: No acute fracture. No dislocation. Soft tissues: Unremarkable. Lymph nodes: No pathologically enlarged lymph nodes. Adrenals: Bilateral adrenal lesions, largest measuring 2.3 cm on the left. See prior CT abdomen a nd pelvis report April 15, 2024. IMPRESSION: 1. No PE identified. 2. Bilateral lower lobe dependent atelectasis. Electronically signed by: Aydee Stevens MD 06/15/2024 04:56 AM CDT ND Due to temporary technical issues with the PACS/[employer] reporting system, reports are being navid d by the in-house radiologist without review as a courtesy to ensure prompt reporting the interpreting radiologist is fully responsible for the content of the report. Transcribed Date/Time: 06/15/2024 5:01 AM
[2024-06-15] MEDS: POTASSIUM CL SA 10 MEQ TAB PO ONE (06:02)
[2024-06-15] MEDS: ENOXAPARIN 40 MG/0.4 ML SQ SCH (09:29)
[2024-06-15] MEDS: ASPIRIN EC 81 MG TAB PO SCH (09:30)
--- NOTE | 2024-06-15 11:36 | P.CNS ---
Date of Consult: 06/15/24 Chief Complaint: CP History of Present Illness: Patient with no significant PMH presented with chest pain that has been going for last two months, sharp, mid chest, no radiation, last few minutes and has been happening more frequently, denies any other cardiac symptoms. Allergies No Known Allergies Allergy (Verified 06/15/24 03:29) Home medications list reviewed: Yes Home Medications: NK [No Home Meds] 06/15/24 - Past Medical/Surgical History Diabetic: No -: appendectomy - Social History Smoking Status: Current every day smoker Alcohol use: No CD- Drugs: No Caffeine use: Yes Place of Residence: Home Review of Systems 10-point ROS is otherwise unremarkable Physical Examination Temp Pulse Resp BP Pulse Ox 97.9 F 80 16 154/98 H 98 06/15/24 08:15 06/15/24 08:20 06/15/24 08:20 06/15/24 08:20 06/15/24 08:00 General: Alert, In no apparent distress HEENT: Atraumatic, PERRLA, Mucous membr. moist/pink, EOMI, Sclerae nonicteric Neck: Supple, 2+ carotid pulse no bruit, No LAD, Without JVD or thyroid abnormality Respiratory: Clear to auscultation bilaterally, Normal air movement Cardiovascular: Regular rate/rhythm, Normal S1 S2 Gastrointestinal: Normal bowel sounds, No tenderness Musculoskeletal: No tenderness Integumentary: No rashes Neurological: Normal gait, Normal speech, Normal tone, Normal affect Lymphatics: No axilla or inguinal lymphadenopathy Laboratory Data (last 24 hrs) 06/15/24 06/15/24 06/15/24 00:12 00:12 00:12 WBC 9.60 Hgb 14.8 Hct 43.0 Plt Count 251 PT 10.9 INR 0.97 Sodium 137 Potassium 3.7 BUN 14 Creatinine 1.17 Glucose 112 H Magnesium 2.1 Total Bilirubin 0.2 AST 11 L ALT 22 Alkaline Phosphatase 71 - Problems (1) Chest pain Current Visit: Yes Status: Acute Plan: concern for angina NPO after midnight for stress test in am (exercise nuclear stress test/Cardiolite) ASA 81 mg daily Lipitor 40 mg daily (2) HTN (hypertension) Current Visit: Yes Status: Acute Plan: start Coreg 3.125 mg po BID start Losartan 25 mg daily
--- NOTE | 2024-06-15 14:59 | P.PN ---
Subjective Date of Service: 06/15/24 Chief Complaint: CP Patient report intermittent anterior chest pain or short durations. Chest pain not associated with movement or breathing, no known aggravating factors. He denies shortness of breath. Physical Examination - Vital Signs Temperature: 98 F Blood Pressure: 115/69 Pulse: 73 Respirations: 16 Pulse Ox (%): 97 - Studies Laboratory Data (last 24 hrs) 06/15/24 06/15/24 06/15/24 00:12 00:12 00:12 WBC 9.60 Hgb 14.8 Hct 43.0 Plt Count 251 PT 10.9 INR 0.97 Sodium 137 Potassium 3.7 BUN 14 Creatinine 1.17 Glucose 112 H Magnesium 2.1 Total Bilirubin 0.2 AST 11 L ALT 22 Alkaline Phosphatase 71 Assessment And Plan - Plan Physical examination General: Alert and oriented x3, NAD, HEENT: Conjunctiva not pale, anicteric sclera Neck: Supple, no elevated JVD Heart: Heart sounds 1 and 2 normal, regular rhythm, normal rate, no pedal edema Lungs: Clear to auscultation bilaterally, adequate breath sounds bilaterally, no rhonchi or crackles. Abdomen: Soft, nondistended, nontender, normal bowel sounds. Extremities: No tenderness, no deformity Skin: Normal skin turgor, no rash, no nodules or ulcers. Neuro: No focal motor deficit. Normal speech. Psychiatry: Normal mood, no agitation. Diagnosis Chest pain Plan: Troponin trended negative. Patient with ongoing intermittent chest pain. Cardiology Dr. Arrieta's input appreciated. Continue aspirin Check lipid profile. Exercise stress test with nuclear imaging recommended by Dr. Arrieta. Analgesics as needed.
[2024-06-15] MEDS: ATORVASTATIN 40 MG TAB PO SCH (21:19)
[2024-06-15 21:31] VITALS: BP 144/89; TEMP 97.9
--- NOTE | 2024-06-15 21:37 | P.DS ---
Admission Date: 06/15/24 Discharge Date: 06/16/24 Disposition: AMA-LEFT AGAINST MEDICAL ADVIC Reason for Admission: CP Brief History of Present Illness: 54 yrs old Male no significant past medical history presents to ER with complaints of Chest Pain. Chest pain that is located primarily in the substernal area started 3 months ago and has been progressively getting worse yesterday.The pain radiates to both arms. The chest pain is described as "swallowing something that goes down slowly". intermittent, occur with stress. Modifying factors: The symptoms are alleviated by rest, the symptoms are aggravated by emotionally stressful situations. The pain was a 8 / 10 in the emergency department Hospital Course: Patient was admitted and monitored closely on telemetry. Cardiac enzymes were trended Cardiology was consulted. Cardiology recommend doing a stress test. Patient left AMA and promised me that he will follow-up with cardiology as outpatient for stress test as outpatient Vital Signs/Physical Exam: Temp Pulse Resp BP Pulse Ox 97.9 F 76 18 144/89 H 96 06/15/24 20:00 06/15/24 20:00 06/15/24 20:00 06/15/24 20:00 06/15/24 20:00 General: Alert, In no apparent distress, Oriented x3 HEENT: Atraumatic, Normocephalic Neck: Supple, No Thyromegaly Respiratory: Clear to auscultation bilaterally, Normal air movement Cardiovascular: Normal pulses, Regular rate/rhythm, Normal S1 S2 Capillary refill: <2 Seconds Gastrointestinal: Soft and benign, W/out hepatosplenomegaly Musculoskeletal: No clubbing, No swelling Integumentary: No rashes Neurological: Normal speech, Normal strength at 5/5 x4 extr Laboratory Data at Discharge: WBC 9.60 thou/uL (4.3-10.9) 06/15/24 00:12 Hgb 14.8 g/dL (13.6-17.9) 06/15/24 00:12 Hct 43.0 % (39.6-49.0) 06/15/24 00:12 Plt Count 251 thou/uL (152-406) 06/15/24 00:12 PT 10.9 SECONDS (9.4-12.5) 06/15/24 00:12 INR 0.97 06/15/24 00:12 Sodium 137 mEq/L (136-145) 06/15/24 00:12 Potassium 3.7 mEq/L (3.5-5.1) 06/15/24 00:12 BUN 14 mg/dL (7-18) 06/15/24 00:12 Creatinine 1.17 mg/dL (0.70-1.30) 06/15/24 00:12 Glucose 112 mg/dL (74-106) H 06/15/24 00:12 Magnesium 2.1 mg/dL (1.6-2.4) 06/15/24 00:12 Total Bilirubin 0.2 mg/dL (0.2-1.0) 06/15/24 00:12 AST 11 U/L (15-37) L 06/15/24 00:12 ALT 22 U/L (16-61) 06/15/24 00:12 Alkaline Phosphatase 71 U/L (45-117) 06/15/24 00:12 Home Medications: NK [No Home Meds] 06/15/24 Diet: AHA Activity: Ad christina Followup: NONE,NONE [Primary Care Provider] - Time spent managing pt's care (in minutes): 45
[2024-06-15 21:50] VITALS: O2SAT 96
--- NOTE | 2024-06-17 12:00 | EKG ---
Test Date: 2024-06-15 Test Time: 00:01:10 Records Management Coordinator: MEASUREMENT RESULTS: Intervals: Rate: 93 NE: 128 QRSD: 100 QT: 366 QTc: 455 [place]: P: 73 NE: 128 QRS: -47 T: 61 INTERPRETIVE STATEMENTS: Normal sinus rhythm Possible Left atrial enlargement Left anterior fascicular block Abnormal ECG Compared to ECG 04/07/2024 09:28:33 Left anterior fascicular block now present Electronically Signed On 06-17-24 11:54:05 CDT by Jack Arrieta
== END 2024-06-15 22:19 | disposition left against medical advice (07) | DRG 311 ==
LOC: ER 23:25 → 2ND 06-15 02:03 → OBSVTOIN 06-15 16:00
PROVIDERS: ADMIT Family Medicine; ATTEND Internal Medicine
DX: I20.9 Angina pectoris, unspecified (principal); I10 Essential (primary) hypertension; F17.210 Nicotine dependence, cigarettes, uncomplicated; Z90.49 Acquired absence of other specified parts of digestive tract; Z53.29 Procedure and treatment not carried out because of patient's decision for other reasons
CPT/HCPCS: 36415; 71045; 71275; 80048; 80076; 83735; 83880; 84484; 85025; 85610; 93005; 94760; 99285; G0378; J1650; Q9967

== ENCOUNTER 2024-06-21 08:09 | Inpatient (IN) | payer OTHER ==
[2024-06-21 08:45] LABS: Absolute Basophils 0.1 K/uL (0-0.5); Absolute Eosinophils 0.1 K/uL (0-0.5); Absolute Monocytes 0.5 K/uL (0.1-1.3); Absolute Neutrophil 8.4 K/uL (1.8-8.0); Basophils % 0.6 % (0-1.3); Eosinophils % 1.3 % (0-4.4); Hemoglobin 13.8 g/dL (13.6-17.9); Lymphocytes % 17.9 % (15.3-44.8); MCH 30.5 pg (27.0-35.0); MCHC 32.9 g/dL (32.0-36.0); MCV 92.9 fL (80-100); MPV 7.7 fL (7.6-11.3); Monocytes % 4.5 % (3.3-12.3); Neutrophils % 75.7 % (41.7-73.7); Platelets 249 thou/uL (152-406); RBC Red Blood Cell Count 4.52 M/uL (4.33-5.43); Red Cell Distribution Width 13.6 % (12.1-15.2)
[2024-06-21 08:51] LABS: PT Prothrombin Time 11.5 SECONDS (9.4-12.5); Protime INR 1.03
[2024-06-21 09:04] LABS: ALT/SGPT 25 U/L (16-61); AST/SGOT 11 U/L (15-37); Albumin 3.3 g/dL (3.4-5.0); Alkaline Phosphatase 82 U/L (45-117); BUN Blood Urea Nitrogen 20 mg/dL (7-18); Bicarbonate 25 mEq/L (21-32); Bilirubin Total 0.2 mg/dL (0.2-1.0); Globulin 3.3 g/dL (2.3-3.5); Glomerular Filtration Rate 76 ml/min (=/>90); Glucose Level 110 mg/dL (74-106); NT PRO-BNP 112 pg/mL (<125); Protein, Total 6.6 g/dL (6.4-8.2); Sodium Level 140 mEq/L (136-145); Troponin High Sensitivity 5.3 pg/mL (<58.9)
[2024-06-21 09:05] LABS: Bilirubin Direct < 0.2 mg/dL (0-0.2)
[2024-06-21] MEDS ORDERED: ASPIRIN 81 MG CHEWABLE TABLET ONE (09:06)
--- NOTE | 2024-06-21 09:18 | EDPHYS ---
Physician Documentation [facility] Name: John Ortiz Age: 54 yrs Sex: Male : 1970 Arrival Date: 06/21/2024 Time: 08:09 Bed 18 Private MD: ED Physician Camacho Frazier HPI: 06/21 08:35 This 54 yrs old Male presents to ER via Unassigned with complaints of Chest Pain. sb4 08:35 Patient reports intermittent chest pain for several months now. He was seen here last sb4 week and admitted for ACS rule out. His troponin noted negative and cardiology inpatient stress test but patient left AMA because he had personal things to attend to. He states that his chest pain has persisted and it is starting to really scare him. Historical: - Allergies: 09:45 No Known Allergies; mb9 - Home Meds: 09:45 None [Active]; mb9 - PMHx: 09:45 None; mb9 - PSHx: 08:17 Appendectomy; mb9 - Immunization history:: Adult Immunizations up to date. - Infectious Disease History:: Denies. - Social history:: Smoking status: Patient reports the use of cigarette tobacco products, smokes one pack cigarettes per day. ROS: 08:35 Constitutional: Negative for fever, chills, and weight loss, sb4 08:35 Cardiovascular: Positive for chest pain, 08:35 All other systems are negative, Exam: 08:35 Constitutional: This is a well developed, well nourished patient who is awake, alert, sb4 and in no acute distress. Head/Face: Normocephalic, atraumatic. Eyes: Extra-ocular motions intact. Periorbital areas with no swelling, redness, or edema. Cardiovascular: Regular rate and rhythm with a normal S1 and S2. Respiratory: No increased work of breathing, no retractions or nasal flaring. Abdomen/GI: Soft, non-tender, no distension. Skin: Warm, dry with normal turgor. Normal color with no rashes, no lesions, and no evidence of cellulitis. Vital Signs: 08:15 BP 150 / 93; Pulse 91; Resp 14; Temp 97.5(TE); Pulse Ox 96% on R/A; Weight 97.52 kg; hb Height 6 ft. 1 in. ; Pain 0/10; 08:30 BP 142 / 88; Pulse 97; Resp 14; Pulse Ox 95% on R/A; rs6 09:45 BP 148 / 88; Pulse 83; Resp 18; Pulse Ox 100% on R/A; mb9 10:50 BP 136 / 87; Pulse 82; Resp 18; Pulse Ox 100% on R/A; mb9 08:15 Body Mass Index 28.37 (97.52 kg, 185.42 cm) hb 08:15 Pain Scale: Adult hb MDM: 08:17 Medical Screening Exam initiated sb4 08:54 Data reviewed: vital signs, nurses notes, lab test result(s), EKG, radiologic studies, sb4 and as a result, I will admit patient. Consideration of Admission/Observation Patient was admitted/placed on observation. Counseling: I had a detailed discussion with the patient and/or guardian regarding the historical points, exam findings, and any diagnostic results supporting the discharge/admit diagnosis, the presence of at least one elevated blood pressure reading (>120/80) during this emergency department visit, lab results, radiology results, the need for further work-up and treatment in the hospital. 06/21 08:18 Order name: Basic Metabolic Panel; Complete Time: 09:07 sb4 06/21 08:18 Order name: CBC with Diff; Complete Time: 08:46 sb4 06/21 08:18 Order name: LFT's; Complete Time: 09:07 sb4 06/21 08:18 Order name: Magnesium; Complete Time: 09:07 sb4 06/21 08:18 Order name: NT PRO-BNP; Complete Time: 09:07 sb4 06/21 08:18 Order name: PT-INR; Complete Time: 08:55 sb4 06/21 08:18 Order name: Troponin HS; Complete Time: 09:07 sb4 06/21 10:07 Order name: T4 Free EDMS 06/21 10:07 Order name: Thyroid Stimulating Hormone EDMS 06/21 10:07 Order name: Urinalysis w/ reflexes EDMS 06/21 10:07 Order name: Basic Metabolic Panel EDMS 06/21 10:07 Order name: Basic Metabolic Panel EDMS 06/21 10:07 Order name: Basic Metabolic Panel EDMS 06/21 10:07 Order name: CBC with Automated Diff EDMS 06/21 10:07 Order name: CBC with Automated Diff EDMS 06/21 10:07 Order name: CBC with Automated Diff EDMS 06/21 10:07 Order name: Lipid Profile EDMS 06/21 10:07 Order name: Lipid Profile EDMS 06/21 10:07 Order name: Magnesium EDMS 06/21 10:07 Order name: Magnesium EDMS 06/21 10:07 Order name: Magnesium EDMS 06/21 10:07 Order name: Phosphorus EDMS 06/21 10:07 Order name: Phosphorus EDMS 06/21 10:07 Order name: Phosphorus EDMS 06/21 10:07 Order name: Troponin High Sensitivity EDMS 06/21 10:07 Order name: Troponin High Sensitivity EDMS 06/21 10:07 Order name: Troponin High Sensitivity EDMS 06/21 08:18 Order name: XRAY Chest (1 view); Complete Time: 09:26 sb4 06/21 10:07 Order name: Echo with Doppler EDMS 06/21 08:18 Order name: Cardiac monitoring; Complete Time: 08:44 sb4 06/21 08:18 Order name: EKG - Nurse/Tech; Complete Time: 08:44 sb4 06/21 08:18 Order name: IV Saline Lock; Complete Time: 08:44 sb4 06/21 08:18 Order name: Labs collected and sent; Complete Time: 08:44 sb4 06/21 08:18 Order name: O2 Per Protocol; Complete Time: 08:44 sb4 06/21 08:18 Order name: O2 Sat Monitoring; Complete Time: 08:44 sb4 EC:31 Rate is 94 beats/min. Rhythm is regular, Normal Sinus Rhythm. Left axis deviation sb4 noted. LA interval is normal at 130 msec. QRS interval is normal at 104 msec. QT interval is normal at 364 msec. No Q waves. T waves are Normal. No ST changes noted. Clinical impression: Abnormal EKG without significant change and No evidence of ischemia. Interpreted by me. Reviewed by me. Administered Medications: 09:10 Drug: Aspirin PO Chewable Tablet 324 mg PO once; 81 mg tablets x 4 Route: PO; mb9 09:45 Follow up: Response: No adverse reaction mb9 Disposition: 15:35 Co-signature as Attending Physician, Camacho Frazier MD I reviewed the patient's care rt provided by the Advanced Practice Provider and agree with the diagnosis and treatment plan. Disposition Summary: 06/21/24 09:18 Hospitalization Ordered Notes: Hospitalization Status: Observation sb4 Provider: Larry Rand sbQuique Condition: Fair sb4 Problem: an ongoing problem sb4 Symptoms: are unchanged sb4 Bed/Room Type: Standard sb4 Location: Telemetry/MedSurg (observation)(06/21/24 12:26) bd Room Assignment: 210(06/21/24 12:26) bd Diagnosis - Chest pain, unspecified sb4 Forms: - Medication Reconciliation Form sb4 - SBAR form sb4 - Leadership Thank You Letter sb4 Signatures: Dispatcher [employer] EDMS PiedadBrigette roberts bd Kimberley Dinh RN RN Kyra Alexis PA-C PAFred sb4 Katie Appiah RN RN mb9 Camacho Frazier MD MD rt Corrections: (The following items were deleted from the chart) 08:18 08:18 BASIC METABOLIC PANEL+C.LAB.BRZ ordered. EDMS EDMS 08:18 08:18 CBC+H.LAB.BRZ ordered. EDMS EDMS 08:18 08:18 HEPATIC FUNCTION+C.LAB.BRZ ordered. EDMS EDMS 08:18 08:18 MAGNESIUM+C.LAB.BRZ ordered. EDMS EDMS 08:18 08:18 PROBNP+C.LAB.BRZ ordered. EDMS EDMS 08:18 08:18 PROTIME (+INR)+COAG.LAB.BRZ ordered. EDMS EDMS 08:18 08:18 Troponin High Sensitivity+C.LAB.BRZ ordered. EDMS EDMS 08:18 08:18 Chest Single View+RAD.RAD.BRZ ordered. EDMS EDMS 12:03 09:18 Telemetry/MedSurg (observation) sb4 bd 12:03 09:18 sb4 bd 12: 12:03 [facility] ER HOLD bd bd 12: 12:03 ERHOLD- bd bd
--- NOTE | 2024-06-21 09:18 | ER ---
Nurse's Notes [facility] Name: John Ortiz Age: 54 yrs Sex: Male : 1970 Arrival Date: 06/21/2024 Time: 08:09 Bed 18 Private MD: Diagnosis: Chest pain, unspecified Presentation: 06/21 08:15 Chief complaint: Intermittent chest pain, worse with activity, x 2 months. Coronavirus hb screen: At this time, the client does not indicate any symptoms associated with coronavirus-19. Ebola Screen: No symptoms or risks identified at this time. Initial Sepsis Screen: Does the patient meet any 2 criteria? No. Patient's initial sepsis screen is negative. Does the patient have a suspected source of infection? No. Patient's initial sepsis screen is negative. Risk Assessment: Do you want to hurt yourself or someone else? Patient reports no desire to harm self or others. Onset of symptoms was April 2024. 08:15 Method Of Arrival: Ambulatory hb 08:15 Acuity: LYIDA 2 hb Historical: - Allergies: 09:45 No Known Allergies; mb9 - Home Meds: 09:45 None [Active]; mb9 - PMHx: 09:45 None; mb9 - PSHx: 08:17 Appendectomy; mb9 - Immunization history:: Adult Immunizations up to date. - Infectious Disease History:: Denies. - Social history:: Smoking status: Patient reports the use of cigarette tobacco products, smokes one pack cigarettes per day. Screenin:18 [facility] ED Fall Risk Assessment (Adult) History of falling in the last 3 months, mb9 including since admission No falls in past 3 months (0 pts) Confusion or Disorientation No (0 pts) Intoxicated or Sedated No (0 pts) Impaired Gait No (0 pts) Mobility Assist Device Used No (0 pt) Altered Elimination No (0 pt) Score/Fall Risk Level 0 - 2 = Low Risk Oriented to surroundings, Maintained a safe environment, Educated pt \T\ family on fall prevention, incl call for assistance when getting out of bed. Abuse screen: Denies threats or abuse. Nutritional screening: No deficits noted. Tuberculosis screening: No symptoms or risk factors identified. Assessment: 08:44 General: Appears in no apparent distress. Behavior is calm, cooperative. Pain: mb9 Complains of pain in chest Pain does not radiate. Pain currently is 8 out of 10 on a pain scale. Quality of pain is described as dull, Pain began 2-3 days ago. Is intermittent, Aggravated by increased activity, repositioning. Neuro: Bolaños Agitation-Sedation Scale (RASS): 0 - Alert and Calm Level of Consciousness is awake, alert, obeys commands, Oriented to person, place, time, situation, Appropriate for age. Cardiovascular: Reports chest pain, shortness of breath, Heart tones S1 S2 present Patient's skin is warm and dry. Rhythm is regular. Respiratory: Airway is patent Respiratory effort is even, unlabored, Respiratory pattern is regular, symmetrical, Breath sounds are clear bilaterally. GI: Abdomen is round non-distended, Bowel sounds present X 4 quads. Abd is soft and non tender X 4 quads. : No signs and/or symptoms were reported regarding the genitourinary system. EENT: No signs and/or symptoms were reported regarding the EENT system. Derm: Skin is pink, warm \T\ dry. Musculoskeletal: Range of motion: intact in all extremities. 09:45 Reassessment: No changes from previously documented assessment. Patient and/or family mb9 updated on plan of care and expected duration. Pain level reassessed. Patient is alert, oriented x 3, equal unlabored respirations, skin warm/dry/pink. 10:50 Reassessment: Patient appears in no apparent distress at this time. No changes from mb9 previously documented assessment. Patient and/or family updated on plan of care and expected duration. Pain level reassessed. Patient is alert, oriented x 3, equal unlabored respirations, skin warm/dry/pink. 10:50 Reassessment: See [facility] for further charting. mb9 Vital Signs: 08:15 BP 150 / 93; Pulse 91; Resp 14; Temp 97.5(TE); Pulse Ox 96% on R/A; Weight 97.52 kg; hb Height 6 ft. 1 in. ; Pain 0/10; 08:30 BP 142 / 88; Pulse 97; Resp 14; Pulse Ox 95% on R/A; rs6 09:45 BP 148 / 88; Pulse 83; Resp 18; Pulse Ox 100% on R/A; mb9 10:50 BP 136 / 87; Pulse 82; Resp 18; Pulse Ox 100% on R/A; mb9 08:15 Body Mass Index 28.37 (97.52 kg, 185.42 cm) hb 08:15 Pain Scale: Adult hb ED Course: 08:11 Patient arrived in ED. mg5 08:12 Kyra Giron PA-C is PHCP. sb4 08:12 Camacho Frazier MD is Attending Physician. sb4 08:17 Katie Appiah, TIFFANY is Primary Nurse. mb9 08:17 Arm band placed on. mb9 08:18 Placed in gown. Bed in low position. Call light in reach. Side rails up X 1. Provided mb9 Education on: press call light if needing anything. Client placed on continuous cardiac and pulse oximetry monitoring. NIBP monitoring applied. quality assurance monitor final on. 08:24 EKG done, by ED staff, reviewed by Kyra Giron PA-C. hb 08:24 Patient maintains SpO2 saturation greater than 95% on room air. hb 08:34 Initial lab(s) drawn, by me, sent to lab. Inserted saline lock: 18 gauge in right hb antecubital area, using aseptic technique. Blood collected. Flushed with 10 mL NS. 08:37 Triage completed. hb 08:46 No provider procedures requiring assistance completed. mb9 08:52 XRAY Chest (1 view) In Process Unspecified. EDMS 09:17 Larry Rand is Hospitalizing Provider. sb4 09:45 Patient admitted, IV remains in place. mb9 12:48 1248 CM met with patient at the bedside in the ED exam room. Patient identified by name ane and . Demographic sheet confirmed. states he lives with his significant other in a single story home. He reports that prior to admission, he performs ADLs independently and without physical limitation. Patient does not have an MPOA in place, nor does he have a PCP at this time. No HH, home oxygen or other medical services at this time. His preferred plan and is to return home upon discharge and states he can transport himself home. He also states that if he needs to, his significant other Lesa is able to transport him home. CM team will continue to follow and coordinate care during this hospital stay. Administered Medications: 09:10 Drug: Aspirin PO Chewable Tablet 324 mg PO once; 81 mg tablets x 4 Route: PO; mb9 09:45 Follow up: Response: No adverse reaction mb9 Medication: 08:46 VIS not applicable for this client. mb9 Outcome: 09:18 Decision to Hospitalize by Provider. [email or web address] 13:33 Admitted to Med/surg accompanied by tech, via wheelchair, mb9 13:33 Condition: stable 13:33 Instructed on the need for admit, 13:34 Patient left the ED. mb9 Signatures: Dispatcher [employer] EDMS Kimberley Dinh RN RN hb Brown, Sophia, PA-C PA-C sb4 Katie Appiah RN RN [email or web address] Yadi Barger mg5 Felicita Batista RN RN ane Smith, Ryan rs6
--- NOTE | 2024-06-21 09:24 | RAD REPORT ---
EXAMINATION: ONE VIEW CHEST XR CLINICAL INDICATION: Male, 54 years old.,CHEST PAIN TECHNIQUE: Frontal chest projection is submitted. Examination is limited by patient positioning and t echnique. COMPARISON: 06/15/2024 FINDINGS: The lungs are well inflated and clear. No pneumothorax or sizable effusion. The heart is normal in s ize. IMPRESSION: No acute intrathoracic abnormalities.
[2024-06-21] MEDS ORDERED: ONDANSETRON 4 MG/2 ML VIAL IV PRN (09:56)
[2024-06-21] MEDS ORDERED: MORPHINE 2 MG/ML SYR IV PRN (09:56)
--- NOTE | 2024-06-21 10:23 | P.HP ---
Certification for Inpatient Patient admitted to: Observation With expected LOS: <2 Midnights Patient will require the following post-hospital care: None Practitioner: I am a practitioner with admitting privileges, knowledge of patient current condition, hospital course, and medical plan of care. Services: Services provided to patient in accordance with Admission requirements found in Title 42 Section 412.3 of the Code of Federal Regulations Patient History Date of Service: 06/21/24 Reason for admission: Chest pain r/o History of Present Illness: John Ortiz is a 54 year old male with no significant Pmhx who arrived to the ED with chest pain that has been intermittent for one month. 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 Today, he report his chest pain has worsened and started to scare him so he has returned to the ED. 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 Troponin and EKG are negative for ischemic abnormalities. On evaluation, his blood pressure is mildly elevated, in no acute distress, anterior chest pain present that is not radiating. He denies SOB, palpitaions, and diaphoresis. Initial vitals :BP 150 / 93; Pulse 91; Resp 14; Temp 97.5(TE); Pulse Ox 96% on R/A 06/21 Chest xray reports "The lungs are well inflated and clear. No pneumothorax or sizable effusion. The heart is normal in size. IMPRESSION: No acute intrathoracic abnormalities. " 06/15 CTA chest "No PE identified, Bilateral lower lobe dependent atelectasis". John will be admitted to hospitalist service for further evaluation and treatment. Cardiology has been consulted. Allergies No Known Allergies Allergy (Verified 06/15/24 03:29) Home Medications: NK [No Home Meds] 06/15/24 - Past Medical/Surgical History Diabetic: No Past Medical History: Patient denies medical history -: appendectomy - Family History Mother -: Other (see notes) (Afib) - Social History Smoking Status: Current every day smoker Alcohol use: No CD- Drugs: No Caffeine use: Yes Review of Systems Cardiovascular: Chest Pain (intermittent x 1 month) Physical Examination - Physical Exam General: Alert, In no apparent distress, Oriented x3 HEENT: Atraumatic, Normocephalic, PERRLA Neck: Supple, 2+ carotid pulse no bruit, JVD not distended Respiratory: Clear to auscultation bilaterally, Normal air movement Cardiovascular: No edema, Normal pulses, Regular rate/rhythm, Normal S1 S2 Capillary refill: <2 Seconds Gastrointestinal: Soft and benign, Non-distended, No tenderness Musculoskeletal: No clubbing Integumentary: No rashes Neurological: Normal speech, Normal tone - Studies Laboratory Data (last 24 hrs) 06/21/24 06/21/24 06/21/24 08:34 08:34 08:34 WBC 11.00 H Hgb 13.8 Hct 42.0 Plt Count 249 PT 11.5 INR 1.03 Sodium 140 Potassium 4.0 BUN 20 H Creatinine 1.13 Glucose 110 H Magnesium 2.0 Total Bilirubin 0.2 AST 11 L ALT 25 Alkaline Phosphatase 82 Assessment and Plan - Plan Assessment and plan Chest pain rule out ACS - EKG: No obvious ST segment changes, trend - troponin 5.3/6.3, Serial pending - Ordered transthoracic echocardiogram - chest x-ray "The lungs are well inflated and clear. No pneumothorax or sizable effusion. The heart is normal in size. IMPRESSION: No acute intrathoracic abnormalities." -06/15 CTA chest "No PE identified, Bilateral lower lobe dependent atelectasis". - Consult Cardiology - NPO at midnight, stress test in the AM - S/P aspirin 324 mg PO x 1 in ED - Start daily baby aspirin and statin - Symptom control with PRN acetaminophen, nitroglycerin, morphine -continuous telemetry -TSH/FreeT4, A1C, lipid panel pending SIDNEY - BUN/ creatinine 20/1.13, GFR 76 -gentle IVF Mild hyperglycemia -Serum glucose 110 -Monitor in a.m. lab Smoking abuse -Cessation education provided DVT PPx SCDs Full code LOS 24-hour OBS Discharge Plan: Home Plan to discharge in: 24 Hours - Advance Directives Does patient have a Living Will: No Does patient have a Durable POA for Healthcare: No
[2024-06-21 10:47] VITALS: BMI 28.2
[2024-06-21 15:51] LABS: Specific Gravity 1.022 (1.005-1.030); Urine Bilirubin NEGATIVE (Negative); Urine Blood Negative (Negative); Urine Clarity Clear (Clear); Urine Color Light-Yellow (Yellow); Urine Glucose NEGATIVE (Negative); Urine Ketones NEGATIVE (Negative); Urine Microscopic Reflex YN NO UMIC; Urine Nitrite NEGATIVE (Negative); Urine Protein NEGATIVE (Negative); Urine Urobilinogen Normal (Normal); Urine pH 5.5 (5.0-7.0)
[2024-06-21 15:59] VITALS: O2SAT 100
[2024-06-21] MEDS: HYDRALAZINE HCL 20 MG/ML VIAL IV PRN (17:58)
[2024-06-21] MEDS: NITROGLYCERIN 0.4 MG/TAB SL PRN (19:48)
[2024-06-21] MEDS: NA CHLORIDE 0.9% 1,000 ML IV SCH (20:06)
[2024-06-21] MEDS: ATORVASTATIN 40 MG TAB PO SCH (20:06)
[2024-06-22 04:42] LABS: Absolute Basophils 0.1 K/uL (0-0.5); Absolute Eosinophils 0.2 K/uL (0-0.5); Absolute Lymphocytes (CBC) 2.5 K/uL (0.7-4.9); Absolute Monocytes 0.4 K/uL (0.1-1.3); Absolute Neutrophil 6.5 K/uL (1.8-8.0); Basophils % 1.1 % (0-1.3); Eosinophils % 1.7 % (0-4.4); Hematocrit 43.6 % (39.6-49.0); Hemoglobin 14.9 g/dL (13.6-17.9); Lymphocytes % 26.2 % (15.3-44.8); MCH 31.2 pg (27.0-35.0); MCHC 34.2 g/dL (32.0-36.0); MCV 91.2 fL (80-100); MPV 7.4 fL (7.6-11.3); Monocytes % 4.2 % (3.3-12.3); Neutrophils % 66.8 % (41.7-73.7); Nucleated Red Blood Cells % 0.1 % (0-0); Platelets 253 thou/uL (152-406); RBC Red Blood Cell Count 4.78 M/uL (4.33-5.43); Red Cell Distribution Width 13.4 % (12.1-15.2)
[2024-06-22 04:54] LABS: Anion Gap 7.2 mEq/L (5.0-15.0); Phosphorus 2.9 mg/dL (2.5-4.9); Potassium 4.2 mEq/L (3.5-5.1)
[2024-06-22 04:55] LABS: Thyroid Stimulating Hormone 5.67 uIU/mL (0.358-3.740)
[2024-06-22] MEDS: ACETAMINOPHEN 325 MG TABLET PO PRN (05:41)
--- NOTE | 2024-06-22 07:04 | ECHO ---
HEIGHT: 6 ft 1 in WEIGHT: 214 lb 0 oz DATE OF STUDY: 06/21/[address]: Yane Morales NP 2-DIMENSIONAL: YES M.MODE: YES DOPPLER: YES COLOR FLOW: YES TDS: PORTABLE: YES DEFINITY: BUBBLE STUDY: DIAGNOSIS: INTERMITTENT CHEST PAIN TIMES ONE MONTH CARDIAC HISTORY: CATHERIZATION: NO SURGERY: NO PROSTHETIC VALVE: NO PACEMAKER: NO MEASUREMENTS (cm) DIASTOLIC (NORMALS) SYSTOLIC (NORMALS) IVSd 1.1 (0.6-1.2) LA Diam 2.6 (1.9-4.0) LVEF 55% LVIDd 5.1 (3.5-5.7) LVIDs 3.6 (2.0-3.5) %FS 30% LVPWd 1.3 (0.6-1.2) Ao Diam 2.9 (2.0-3.7) 2 DIMENSIONAL ASSESSMENT: RIGHT ATRIUM: NORMAL LEFT ATRIUM: NORMAL RIGHT VENTRICLE: NORMAL LEFT VENTRICLE: NORMAL TRICUSPID VALVE: NORMAL MITRAL VALVE: NORMAL PULMONIC VALVE: NORMAL AORTIC VALVE: NORMAL PERICARDIAL EFFUSION: NONE AORTIC ROOT: NORMAL LEFT VENTRICULAR WALL MOTION: NORMAL DOPPLER/COLOR FLOW: NORMAL COMMENTS: 1. NORMAL LEFT VENTRICULAR SYSTOLIC FUNCTION, EJECTION FRACTION 55%, NORMAL WALL MOTION 2. NORMAL DIASTOLIC FUNCTION 3. MILD ELEVATED FILLING PRESSURE (RIGHT ATRIAL PRESSURE 15 mmHg) TECHNOLOGIST: ANNELIESE DREW
[2024-06-22] MEDS: ASPIRIN EC 81 MG TAB PO SCH (08:44)
--- NOTE | 2024-06-22 10:57 | RAD REPORT ---
EXAM: Nuclear medicine cardiac perfusion examination with ejection fraction HISTORY: Chest pain [facility] chest pain TECHNIQUE: Rest images: 8.8 mCi technetium 99m sestamibi Stress images: 24.3 mCi of technetium 99m sestamibi COMPARISON: None. FINDINGS: Tomographic images: Small focus of stress-induced ischemia suspected LV apex. No finding to suspect h ibernating myocardium. Ejection fraction of 43%. EDV: 135 mL ESV: 77 mL LHR: 0.36 TID: 0.87 IMPRESSION: Small area of mild to moderate stress-induced ischemia suspected LV apex.
--- NOTE | 2024-06-22 12:09 | TREADMILL ---
70% H.R.: 115 85% H.R.: 139 90% H.R.: 148 100% H.R.: 164 DX: CHEST PAIN Date of Study: 06/22/2024 Ht: 6' 1 " Wt: 214 lb 0 oz Consulting Physician: LUCIA MEDICATIONS: ASPIRIN, LIPTIOR, MORPHINE, NITROSTAT, ZOFRAN HISTORY: 54 YEAR OLD MALE WITH HISTORY OF SMOKING, METHAMPHETAMINE AND ETOH. PHYSICIAL EXAMINATION: RESTING B.P.: 126/88 RESTING H.R.: 74 RESTING EKG: SINUS RHYTHM PROTOCOL: HIPOLITO CARDIOLITE EXERCISE TIME: 8:59 MAXIMUM HEART RATE: 145 88 % OF PREDICTED B.P. AT PEAK STRESS: 197/115 H.R. AT 1 MINUTE POST EXERCISE: [*] IMPRESSION: MYOVIEW CARDIOLITE PERFORMED PER PROTOCOL. SEE NUCLEAR MEDICINE REPORT. CHEST PAIN 11/08. NO VENTRICULAR TACHYCARDIA. NO SUPRAVENTRICULAR TACHYCARDIA.
--- NOTE | 2024-06-22 12:54 | EKG ---
Test Date: 2024-06-21 Test Time: 08:28:07 Ob/Gyn Nurse: BILLIE MEASUREMENT RESULTS: Intervals: Rate: 94 NC: 130 QRSD: 104 QT: 364 QTc: 455 [place]: P: 63 NC: 130 QRS: -35 T: 78 INTERPRETIVE STATEMENTS: Normal sinus rhythm Left axis deviation Abnormal ECG Compared to ECG 06/15/2024 00:01:10 Left-axis deviation now present Left anterior fascicular block no longer present Electronically Signed On 06-22-24 12:50:38 CDT by Jack Arrieta
--- NOTE | 2024-06-22 13:04 | P.PN ---
Date of Service: 06/22/24 Subjective: Still having intermittent chest pain overnight Troponin trended flat, no arrhythmias on telemetry ROS: 10 point ROS as noted above, otherwise negative Physical exam GEN: Alert, oriented, NAD HEENT: Normal conjunctiva, sclera anicteric CV: Regular rate and rhythm, no edema Pulm: Nonlabored respirations on room air ABD: Soft, nontender, nondistended MSK: No joint tenderness Integumentary: No rashes Neuro: Normal speech, normal affect Vitals reviewed Assessment and plan Chest pain rule out ACS -EKG: No obvious ST segment changes, trend -troponin/trended flat -Echocardiogram with normal LVEF -06/15 CTA chest negative for PE - Consult Cardiology -stress test positive-pending coronary angiogram - S/P aspirin 324 mg PO x 1 in ED - Start daily baby aspirin and statin - Symptom control with PRN acetaminophen, nitroglycerin, morphine -continuous telemetry SIDNEY -BUN/ creatinine 20/1.13, GFR 76 -gentle IV Tobacco use disorder -Cessation education provided DVT PPx SCDs Full code Inpatient Discharge Plan: Home Plan to discharge in: 24 Hours Time Spent Managing Pts Care (In Minutes): 35
[2024-06-22 17:03] VITALS: BP 163/72; TEMP 98
== END 2024-06-22 18:03 | disposition home or self-care (01) | DRG 313 ==
LOC: ER 08:09 → ERHOLD 09:56 → 2ND 12:31 → OBSVTOIN 06-22 13:04
PROVIDERS: ADMIT Internal Medicine; ATTEND Hospitalist
DX: R07.9 Chest pain, unspecified (principal); N17.9 Acute kidney failure, unspecified; F17.210 Nicotine dependence, cigarettes, uncomplicated; R73.9 Hyperglycemia, unspecified; Z90.49 Acquired absence of other specified parts of digestive tract
CPT/HCPCS: 36415; 71045; 78452; 80048; 80061; 80076; 81003; 83735; 83880; 84100; 84439; 84443; 84484; 85025; 85610; 93005; 93017; 93306; 99285; A9500; G0378; J0360; J7030

== ENCOUNTER 2024-08-10 17:16 | Inpatient (IN) | payer OTHER ==
--- OUTSIDE RECORDS SUMMARY | 2024-08-10 17:19 | XMS REPORT | Continuity of Care Document ---
Author Name Unknown Address [address] [place] [address] Dharmesh. [address] [place] [address] [facility] thconnect Address [address] [facility] [address] [place] [address] Care Team Providers Care Pantomimist Name Role Phone VARINDER MAN Attending Clinician Unavailable RAPHAEL GIRON Attending Clinician Unavailable Physician, No Primary or Family Admitting Clinic laura Unavailable Payers Payer Name Policy Type Policy Number Effective Date Expirati on Date Source [facility] 9 [id number] 2023 00:00:00 Allergies, Adverse Reactions, Alerts Allergy Name Allergy Type Status Severity Reaction(s) Onset Date Inactive Date Treating Clinician Comments Source No Known Allergie s DA Active U 02-10 00:00: 00 [facility] No Known Allergie s DA Active U 02-10 00:00: 00 [facility] No Known Drug Allergie s DA Active U 12-30 00:00: 00 [facility] No Known Drug Allergie s DA Active U 12-30 00:00: 00 [facility] Social History Social Habit Start Date Stop Date Quantity Comments Source Sexual orientation Rajni Jay - External History of Social function 2024-08-02 00:00:00 2024-08-02 00:00:00 Sada Galarza External Tobacco use and exposure 2024-07-12 00:00:00 2024-07-12 00:00:00 Smokeless tobacco non-user Sada Jay - External Sex 2022-09-26 00:58:26 2022-09-26 00:58:26 Male (finding) Sada Jay - External Sex assigned at 1970 00:00:00 1970 00:00:00 Sada Jay - External Smoking Status Start Date Stop Date Source Never smoked tobacco Sada Galarza External Medications Ordered Medication Name Filled Medication Name Start Date Stop Date Current Medication? Ordering Clinician Indication Dosage Frequency Signature (SIG) Comments Components Source Acetaminoph en (Tylenol) 325 MG oral Capsule 2023-09 08:20: 04 Yes Take by mouth as needed. Sada man Ibuprofen (Advil) 200 MG oral Tablet 2023-09 08:20: 04 Yes 200mg Take 1 tablet (200 mg total) by mouth as needed for pain. Sada man Diclofenac Sodium 75 MG oral Tablet Delayed Response 2023-09 00:00: 00 Yes [id number] 105 75mg Q.5D Take 1 tablet (75 mg total) by mouth 2 times daily. Sada man Cephalexin 500 MG oral Capsule 2023-09 00:00: 00 07-13 05:59 :00 Yes 500mg Q.25D Take 1 capsule (500 mg total) by mouth 4 times daily. Sada man Aspirin 81 MG oral Tablet Delayed Response 2023-09 00:00: 00 Yes 81mg 1 tablet (81 mg total). Sada man Metoprolol Tartrate (LOPRESSOR) 25 MG oral Tablet 2023-09 00:00: 00 Yes 25mg 1 tablet (25 mg total). Sada man Atorvastati n Calcium 40 MG oral Tablet 2023-09 00:00: 00 Yes 40mg 1 tablet (40 mg total). Sada man Vital Signs Vital Name Observation Time Observation Value Comments S ource Body height 2024-08-10 14:17:00 185.4 cm Meaghan ey Seybold - External Body weight 2024-08-10 14:17:00 96.616 kg Meaghan ey Seybold - External BMI 2024-08-10 14:17:00 28.10 kg/m2 Meaghan ey Seybold - External Body height 2024-08-02 21:48:00 185.4 cm Meaghan ey Seybold - External Body weight 2024-08-02 21:48:00 98.158 kg Meaghan ey Seybold - External BMI 2024-08-02 21:48:00 28.55 kg/m2 Meaghan ey Seybold - External Body height 2024-07-20 20:21:00 185.4 cm Meaghan ey Seybold - External Body weight 2024-07-20 20:21:00 96.163 kg Meaghan ey Seybold - External BMI 2024-07-20 20:21:00 27.97 kg/m2 Meaghan ey Seybold - External Body height 2024-07-12 20:36:00 185.4 cm Meaghan ey Seybold - External Body weight 2024-07-12 20:36:00 97.523 kg Meaghan ey Seybold - External BMI 2024-07-12 20:36:00 28.37 kg/m2 Meaghan ey Seybold - External Procedures Procedure Date / Time Performed Performing Clinicia n Source DIGIT 5 LEFT (PINKY) 2024-08-10 15:03:35 Varinder Man Seybold - External DIGIT 5 LEFT (PINKY) 2024-07-20 21:14:20 Raphael Giron - External ANKLE 3V WEIGHT BEARING RIGHT 2024-07-12 22:10:38 Raphael Giron - External KNEE ROUTINE 40 YEARS AND OLDER RIGHT 2024-07-12 22:10:07 Raphael Giron - External Plan of Care Planned Activity Planned Date Details Comments Source Encounters Start Date/Time End Date/Time Encounter Type Admission Type Attending [facility] Care Department Encounter ID Source 2020-02-11 11:19:00 Inpatient [facility] [id number] [facility] 2024-08-30 15:10:00 2024-08-30 15:10:00 Outpatient NOLLVARINDER Beard SADA HILTON [id number] Sada Seybold 2024-08-23 14:40:00 2024-08-23 14:40:00 Outpatient NOCASTILLO, VARINDER [facility]ADA [facility] [id number] Sada Seybold 2024-08-10 09:00:00 2024-08-10 09:00:00 Outpatient SADA HILTON [id number] Sada Seybold 2024-08-10 07:40:00 2024-08-10 07:40:00 Outpatient NOLLA, VARINDER [facility]ADA [facility] [id number] Sada Seybold 2024-08-10 00:00:00 2024-08-10 00:00:00 Outpatient NOVARINDER CHONG [facility] [id number] [facility] 2024-08-09 13:00:00 2024-08-09 13:00:00 Outpatient NOVARINDER CHONG [facility] [id number] [facility] 2024-08-03 00:00:00 2024-08-03 00:00:00 Outpatient NOVARINDER CHONG [facility] [id number] [facility] 2024-08-02 16:25:00 2024-08-02 16:25:00 Outpatient SADA HILTON [id number] Sada Seybold 2024-08-02 15:00:00 2024-08-02 15:00:00 Outpatient VARINDER MAN SADA [facility]ILTON [id number] Sada Seybold 2024-07-20 15:05:00 2024-07-20 15:05:00 Outpatient SADA HILTON [id number] Sada Seybold 2024-07-20 14:20:00 2024-07-20 14:20:00 Outpatient JULIETA GIRONACE [facility] [id number] Sada Seybold 2024-07-20 08:40:00 2024-07-20 08:40:00 Outpatient SADA HILTON [id number] Sada Seybold 2024-07-20 08:35:00 2024-07-20 08:35:00 Outpatient SADA HILTON [id number] Sada Seybold 2024-07-20 08:30:00 2024-07-20 08:30:00 Outpatient SADA HILTON [id number] Sada Seybold 2024-07-20 00:00:00 2024-07-20 00:00:00 Outpatient RAPHAEL GIRON [id number] Sada Seybold 2024-07-20 00:00:00 2024-07-20 00:00:00 Outpatient RAPHAEL GIRON [id number] Sada Seybold 2024-07-20 00:00:00 2024-07-20 00:00:00 Outpatient RAPHAEL GIRON [id number] Sada Seybold 2024-07-12 16:45:00 2024-07-12 16:45:00 Outpatient SADA HILTON [id number] Sada Seybold 2024-07-12 16:40:00 2024-07-12 16:40:00 Outpatient SADA SADA [id number] Sada Seybold 2024-07-12 16:35:00 2024-07-12 16:35:00 Outpatient SADA SADA [id number] Sada Seybold 2024-07-12 16:30:00 2024-07-12 16:30:00 Outpatient SADA SADA [id number] Sada Seybold 2024-07-12 16:25:00 2024-07-12 16:25:00 Outpatient SADA SADA [id number] Sada Seybold 2024-07-12 15:40:00 2024-07-12 15:40:00 Outpatient SADA SADA [id number] Sada Seybold 2024-07-12 15:35:00 2024-07-12 15:35:00 Outpatient SADA SADA [id number] Sada Seybold 2024-07-12 14:20:00 2024-07-12 14:20:00 Outpatient RAPHAEL GIRON [id number] Sada Seybold 2024-07-05 14:20:00 2024-07-05 14:20:00 Outpatient RAPHAEL GIRON SADA [id number] Sada Seybold 2017-01-25 00:00:00 2017-01-25 00:00:00 [id number] Results Test Description Test Time Test Comments Results Resul t Comments Source DIGIT 5 LEFT (JAYSON) 2024-08-10 15:05:29 HISTORY: Post reductionIMAGES: ? 3 views, left fifth fingerFINDINGS: Since the prior study from 08/02/2024, the anteriorly dislocated middle phalanx of the digit has been restored to near anatomic alignment at the PIP joint with a posterior splint.No fracture is seen. Sada Jay - External DIGIT 5 LEFT (JAYSON) 2024-07-20 21:16:00 HISTORY: Pt c/o let 5th finger painIMAGES: ? 3 views, left fifth fingerFINDINGS: There is palmar subluxation of the middle phalanx on the proximal phalangeal head.No fracture is seen. Sada Jay - External ANKLE 3V WEIGHT BEARING RIGHT 2024-07-12 22:24:48 ANKLE 3V WEIGHT BEARING RIGHT History: 54 years old, Male with Pt c/o r ankle pain form injury 07-01-24 Comparison: None. Views: 3. Findings:The ankle mortise is preserved. Medial and lateral clear spaces are normal.There is no acute fracture or dislocation. ?The joint spaces and alignment are preserved. ?Small plantar calcaneus spur is noted.Circumferent ial soft tissue swelling about the ankle is noted. Sada Jay - External KNEE ROUTINE 40 YEARS AND OLDER RIGHT 2024-07-12 22:24:09 Exam: KNEE ROUTINE 40 YEARS AND OLDER RIGHT History: 54 years old, Male with Pt c/o r knee pain from injury 07-01-24. Comparison: None. Views: ?4 Findings: No fracture or malalignment. Small knee joint effusion with suprapatellar recess intra-articular calcification. Joint spaces are preserved. Mild infrapatellar tendon soft tissue thickening is suggested. Sada Galarza External [id number] 16:52:00* Test Item Value Reference Range Interpretation Comme nts TROPONIN-I (test code = TROPI) <0.02 NG/ML 0.00-0.06 N REFERENCE RANGE TROPONIN I HEALTHY INDIVIDUALS: <0.06 ng/mL R/O ISCHEMIA: 0.07 - 0.60 ng/mL CUT-OFF RANGE FOR AMI: 0.60 - 1.5 ng/mL BASIC METABOLIC [id number] 12:21:00* Test Item Value Reference Range Interpretation Comme nts SODIUM (test code = NA) 137 mmol/l 134.0-147.0 N POTASSIUM (test code = K) 3.6 mmol/L 3.6-5.2 N CHLORIDE (test code = CL) 102 mmol/l 98.0-107.0 N CARBON DIOXIDE (test code = CO2) 26.2 mmol/l 21.0-33.0 N ANION GAP (test code = GAP) 12.4 0-20 N GLUCOSE (test code = GLU) 92 mg/dl 70.0-110.0 N BLOOD UREA NITROGEN (test co de = BUN) 13 mg/dl 7.0-18.0 N CREATININE (test code = CREAT) 1.17 mg/dL 0.60-1.30 N GFR NON BLACK (test code = GFRNONBLACK) 70 mL/min 90-95 L GFR BLACK (test code = GFRBLACK) 84 mL/min 109-115 L CALCIUM (test code = CA) 8.2 mg/dl 8.0-10.5 N Specimen comments: .HEPATIC FUNCTION PANEL [id number] 12:21:00* Test Item Value Reference Range Interpretation Comme nts TOTAL PROTEIN (test code = PROT) 7.3 gm/dL 6.4-8.2 N ALBUMIN (test code = ALB) 3.7 gm/dl 3.2-4.7 N BILIRUBIN TOTAL (test code = BILT) 0.2 mg/dl 0.0-1.0 N BILIRUBIN DIRECT (test code = BILD) 0.1 mg/dl 0.0-0.3 N SGOT/AST (test code = AST) 16 Units/L 15.0-37.0 N SGPT/ALT (test code = ALT) 33 Units/L 12.0-78.0 N ALKALINE PHOSPHATASE TOTAL ( test code = ALKP) 68 Units/L 50.0-136.0 N Specimen comments: .B-TYPE NATRIURETIC [id number] 12:21:00* Test Item Value Reference Range Interpretation Comme nts B-TYPE NATRIURETIC PEPTIDE ( test code = BNP) 8.0 PG/ML 5-100 N Specimen comments: .[id number] 12:21:00* Test Item Value Reference Range Interpretation Comme nts TROPONIN-I (test code = TROPI) <0.02 NG/ML 0.00-0.06 N REFERENCE RANGE TROPONIN I HEALTHY INDIVIDUALS: <0.06 ng/mL R/O ISCHEMIA: 0.07 - 0.60 ng/mL CUT-OFF RANGE FOR AMI: 0.60 - 1.5 ng/mL Specimen comments: .BASIC METABOLIC [id number] 12:16:00* Test Item Value Reference Range Interpretation Comme nts SODIUM (test code = NA) 137 mmol/l 134.0-147.0 N POTASSIUM (test code = K) 3.6 mmol/L 3.6-5.2 N CHLORIDE (test code = CL) 102 mmol/l 98.0-107.0 N CARBON DIOXIDE (test code = CO2) 26.2 mmol/l 21.0-33.0 N ANION GAP (test code = GAP) 12.4 0-20 N GLUCOSE (test code = GLU) 92 mg/dl 70.0-110.0 N BLOOD UREA NITROGEN (test co de = BUN) 13 mg/dl 7.0-18.0 N CREATININE (test code = CREAT) 1.17 mg/dL 0.60-1.30 N GFR NON BLACK (test code = GFRNONBLACK) 70 mL/min 90-95 L GFR BLACK (test code = GFRBLACK) 84 mL/min 109-115 L CALCIUM (test code = CA) 8.2 mg/dl 8.0-10.5 N Specimen comments: .HEPATIC FUNCTION PANEL [id number] 12:16:00* Test Item Value Reference Range Interpretation Comme nts TOTAL PROTEIN (test code = PROT) 7.3 gm/dL 6.4-8.2 N ALBUMIN (test code = ALB) 3.7 gm/dl 3.2-4.7 N BILIRUBIN TOTAL (test code = BILT) 0.2 mg/dl 0.0-1.0 N BILIRUBIN DIRECT (test code = BILD) 0.1 mg/dl 0.0-0.3 N SGOT/AST (test code = AST) 16 Units/L 15.0-37.0 N SGPT/ALT (test code = ALT) 33 Units/L 12.0-78.0 N ALKALINE PHOSPHATASE TOTAL ( test code = ALKP) 68 Units/L 50.0-136.0 N Specimen comments: .B-TYPE NATRIURETIC [id number] 12:16:00* Test Item Value Reference Range Interpretation Comme nts B-TYPE NATRIURETIC PEPTIDE ( test code = BNP) PG/ML 5-100 Specimen comments: .[id number] 12:16:00* Test Item Value Reference Range Interpretation Comme nts TROPONIN-I (test code = TROPI) <0.02 NG/ML 0.00-0.06 N REFERENCE RANGE TROPONIN I HEALTHY INDIVIDUALS: <0.06 ng/mL R/O ISCHEMIA: 0.07 - 0.60 ng/mL CUT-OFF RANGE FOR AMI: 0.60 - 1.5 ng/mL Specimen comments: .URINALYSIS [id number] 12:12:00* Test Item Value Reference Range Interpretation Comme nts UA COLOR (test code = COLU) YELLOW UA APPEARANCE (test code = APPU) CLEAR UA GLUCOSE DIPSTICK (test code = DGLUU) NORMAL mg/dl NORMAL UA BILIRUBIN DIPSTICK (test code = BILU) NEGATIVE mg/dL NEGATIVE UA KETONE DIPSTICK (test code = KETU) NEGATIVE mg/dl NEGATIVE UA SPECIFIC GRAVITY (test code = SGU) 1.020 1.000-1.030 UA BLOOD DIPSTICK (test code = SMITHA) NEGATIVE Filiberto/micL NEGATIVE UA PH DIPSTICK (test code = FROILAN) 5.0 5.0-9.0 UA PROTEIN DIPSTICK (test code = PROU) NEGATIVE mg/dl NEGATIVE UA UROBILINIOGEN DIPSTICK (test code = URO) NORMAL mg/dl NORMAL UA NITRITE DIPSTICK (test code = JESSICA) NEGATIVE NEGATIVE UA LEUKOCYTE ESTERASE DIPSTICK (test code = LEUU) NEGATIVE Darrick/micL NEGATIVE UA WBC (test code = WBCU) 0-3 WBC/HPF NONE UA RBC (test code = RBCU) 0-2 RBC/HPF 0-3 UA EPITHELIAL CELLS (test code = EPIU) 2-5 EPI/HPF 0-3 A UA BACTERIA (test code = BACU) TRACE NONE Specimen comments: Clean CatchDRUGS OF ABUSE SCREEN [id number] 12:08:00* Test Item Value Reference Range Interpretation Comments URN COCAINE (test code = COCAURN) NEGATIVE NEGATIVE Cocaine cut-off concentration: 300 ng/mL URN CANNABINOIDS (test code = CANNABURN) POSITIVE NEGATIVE A UNCONFIRMED INIT IAL SCREENING ONLY; SUGGEST ADDITIONALCONFIRMATORY TESTING.Cannabinoids cut-off concentration: 50 ng/mL URN AMPHETAMINE (test code = AMPHETURN) POSITIVE NEGATIVE A UNCONFIRMED INIT IAL SCREENING ONLY; SUGGEST ADDITIONALCONFIRMATORY TESTING.Amphetamine cut-off concentration: 1000 ng/mL URN BARBITURATE (test code = BARBITURN) NEGATIVE NEGATIVE Barbiturate cut- off concentration: 200 ng/mL URN BENZODIAZEPINE (test code = BENZOURN) NEGATIVE NEGATIVE Benzodiazepine c ut-off concentration: 200 ng/mL URN OPIATES (test code = OPIATURN) NEGATIVE NEGATIVE Opiates cut-off concentration: 200 ng/mL URN PHENCYCLIDINE (PCP) (test code = PHENCURN) NEGATIVE NEGATIVE Phencyclidine(PC P) cut-off concentration: 25 ng/ml URN METHADONE (test code = METHAURN) NEGATIVE NEGATIVE Methadone cut-o ff concentration: 300 ng/mL Specimen comments: Clean CatchURINALYSIS [id number] 12:08:00* Test Item Value Reference Range Interpretation Comme nts UA COLOR (test code = COLU) YELLOW UA APPEARANCE (test code = APPU) CLEAR UA GLUCOSE DIPSTICK (test code = DGLUU) NORMAL mg/dl NORMAL UA BILIRUBIN DIPSTICK (test code = BILU) NEGATIVE mg/dL NEGATIVE UA KETONE DIPSTICK (test code = KETU) NEGATIVE mg/dl NEGATIVE UA SPECIFIC GRAVITY (test code = SGU) 1.020 1.000-1.030 UA BLOOD DIPSTICK (test code = SMITHA) NEGATIVE Filiberto/micL NEGATIVE UA PH DIPSTICK (test code = FROILAN) 5.0 5.0-9.0 UA PROTEIN DIPSTICK (test code = PROU) NEGATIVE mg/dl NEGATIVE UA UROBILINIOGEN DIPSTICK (test code = URO) NORMAL mg/dl NORMAL UA NITRITE DIPSTICK (test code = JESSICA) NEGATIVE NEGATIVE UA LEUKOCYTE ESTERASE DIPSTICK (test code = LEUU) NEGATIVE Darrick/micL NEGATIVE UA WBC (test code = WBCU) WBC/HPF NONE UA RBC (test code = RBCU) RBC/HPF 0-3 UA EPITHELIAL CELLS (test code = EPIU) EPI/HPF 0-3 UA BACTERIA (test code = BACU) NONE Specimen comments: Clean CatchBASIC METABOLIC [id number] 12:07:00* Test Item Value Reference Range Interpretation Comme nts SODIUM (test code = NA) 137 mmol/l 134.0-147.0 N POTASSIUM (test code = K) 3.6 mmol/L 3.6-5.2 N CHLORIDE (test code = CL) 102 mmol/l 98.0-107.0 N CARBON DIOXIDE (test code = CO2) 26.2 mmol/l 21.0-33.0 N ANION GAP (test code = GAP) 12.4 0-20 N GLUCOSE (test code = GLU) mg/dl 70.0-110.0 BLOOD UREA NITROGEN (test co de = BUN) mg/dl 7.0-18.0 CREATININE (test code = CREAT) mg/dL 0.60-1.30 GFR NON BLACK (test code = GFRNONBLACK) mL/min 90-95 GFR BLACK (test code = GFRBLACK) mL/min 109-115 CALCIUM (test code = CA) mg/dl 8.0-10.5 Specimen comments: .HEPATIC FUNCTION PANEL [id number] 12:07:00* Test Item Value Reference Range Interpretation Comme nts TOTAL PROTEIN (test code = PROT) gm/dL 6.4-8.2 ALBUMIN (test code = ALB) gm/dl 3.2-4.7 BILIRUBIN TOTAL (test code = BILT) mg/dl 0.0-1.0 BILIRUBIN DIRECT (test code = BILD) mg/dl 0.0-0.3 SGOT/AST (test code = AST) Units/L 15.0-37.0 SGPT/ALT (test code = ALT) Units/L 12.0-78.0 ALKALINE PHOSPHATASE TOTAL ( test code = ALKP) Units/L 50.0-136.0 Specimen comments: .B-TYPE NATRIURETIC [id number] 12:07:00* Test Item Value Reference Range Interpretation Comme nts B-TYPE NATRIURETIC PEPTIDE ( test code = BNP) PG/ML 5-100 Specimen comments: .[id number] 12:07:00* Test Item Value Reference Range Interpretation Comme nts TROPONIN-I (test code = TROPI) NG/ML 0.00-0.06 Specimen comments: .PROTHROMBIN [id number] 11:57:00* Test Item Value Reference Range Interpretation Comme nts PROTHROMBIN TIME PATIENT (test code = PTP) 12.0 SECONDS 9.9-12.8 N INTERNATIONAL NORMAL RATIO (test code = INR) 1.0 0.89-1.14 N THE INR IS TO BE USED ONLY FOR MONITORING ORAL ANTICOAGULANTTHERAPY. THE FOLLOWING ARE SUGGESTED RANGES FROM THEAMERICAN COLLEGE OF CHEST PHYSICIANS:INDICATION INR VALUEPROPHYLAXIS OF VENOUS THROMBOSIS (ORTHOPEDIC SURGERY) 2.0 - 3.0PROPHYLAXIS OF VENOUS THROMBOSIS (OTHER THAN HIGH-RISK SURGERY) 2.0 - 3.0TREATMENT OF DEEP VEIN THROMBOSIS OR PULMONARY EMBOLISM 2.0 - 3.0PREVENTION OF SYSTEMIC EMBOLISM TISSUE HEART VALVES 2.0 - 3.0 ACUTE MYOCARDIAL INFARCTION (TO PREVENT SYSTEMIC EMBOLISM) 2.0 - 3.0 ACUTE MYOCARDIAL INFARCTION (TO PREVENT RECURRENT INFARCT) 2.5 - 3.0 VALVULAR HEART DISEASE 2.0 - 3.0 ATRIAL FIBRILATION 2.0 - 3.0BILEAFLET MECHANICAL VALVE IN AORTIC POSITION 2.0 - 3.0MECHANICAL PROSTHETIC VALVES (HIGH RISK) 2.5 - 3.5PRESENCE OF LUPUS ANTICOAGULANT OR ANTIPHOSPHOLIPID ANTIBODIES 2.5 - 3.5 Specimen comments: .Is patient on anticoagulants? NTHROMBOPLASTIN TIME PARTIAL 2020-02-11 11:57:00* Test Item Value Reference Range Interpretation Comme [facility] THROMBOPLASTIN TIME PARTIAL (test code = PTT) 26.50 SECONDS 25.86-36.07 N [facility] Therapeutic Range - APTT of 55.8-85.4 secondscorrelates with plasma heparin concentration of 0.2-0.4 u/mL New range effective - 10/27/2016 Specimen comments: .Is patient on anticoagulants? NCBC W/AUTO [id number] 11:49:00* Test Item Value Reference Range Interpretation Comme nts WHITE BLOOD CELL (test code = WBC) 8.4 K/mm3 4.5-11.0 N RED BLOOD CELL (test code = RBC) 4.58 M/mm3 4.40-5.90 N HEMOGLOBIN (test code = HGB) 14.1 gm/dL 13.0-17.0 N HEMATOCRIT (test code = HCT) 42.4 % 36.0-48.0 N MEAN CELL VOLUME (test code = MCV) 92.6 UM3 80.0-94.0 N MEAN CELL HGB (test code = MCH) 30.8 UUG 25.5-32.5 N MEAN CELL HGB CONCETRATION (test code = MCHC) 33.3 gm/dL 29.0-35.5 N RED CELL DISTRIBUTION WIDTH (test code = RDW) 12.5 % 11.5-15.0 N RED CELL DISTRIBUTION WIDTH SD (test code = RDW-SD) 42.5 fL 34.8-50.2 N PLATELET COUNT (test code = PLT) 240 K/mm3 150-400 N MEAN PLATELET VOLUME (test c ode = MPV) 9.3 fl 7.4-10.4 N NEUTROPHIL % (test code = NT%) 67.6 % 49.0-76.0 N IMMATURE GRANULOCYTE % (test code = IG%) 0.5 % 0.0-0.4 H LYMPHOCYTE % (test code = LY%) 24.7 % 23.0-38.0 N MONOCYTE % (test code = MO%) 5.3 % 1.0-10.0 N EOSINOPHIL % (test code = EO%) 1.2 % 1.0-5.0 N BASOPHIL % (test code = BA%) 0.7 % 0.0-1.0 N NEUTROPHIL # (test code = NT#) 5.7 K/mm3 2.4-6.3 N IMMATURE GRANULOCYTE # (test code = IG#) 0.04 x10 3/uL 0.00-0.07 N LYMPHOCYTE # (test code = LY#) 2.1 K/mm3 1.2-4.0 N MONOCYTE # (test code = MO#) 0.5 K/mm3 0.0-0.6 N EOSINOPHIL # (test code = EO#) 0.1 K/MM3 0.0-0.7 N BASOPHIL # (test code = BA#) 0.1 K/mm3 0.0-0.2 N - XR CHEST 1 [id number] 11:47:00FAX: Dahlia Sinha MD [phone] [place]: St: PRE Name: CRISTIAN DAVALOS [facility] [place] : 1970 Age/S: 49/M [address] [facility] [place] [address] Unit #: [id number] Loc: [address] Phys: [place] [id number] Acct: [id number] Dis Date: Status: PRE ER PHONE #: [phone] Exam Date: 02/11/2020 1142 FAX #: [phone] Reason: SOB EXAMS: CPT CODE: [id number] XR CHEST 1 V [id number] Location: C3 EXAM: XR CHEST 1 VIEW DATE: 02/11/2020 11:21 AM INDICATION: Shortness of breath COMPARISON: Chest radiograph dated 12/30/2016 TECHNIQUE: AP chest FINDINGS: Lines, tubes and hardware: None. Lungs and pleura: There are minimal linear opacities within the lower lobes bilaterally. Otherwise, no focal consolidation. No pneumothorax. The pulmonary vasculature is within normal limits. Heart and mediastinum: Theheart size is normal for technique. The mediastinal contours are normal. Bones: No acute bony abnormality is identified. IMPRESSION: Minimal linear opacities within the lower lobes, favored to represe nt atelectatic change. Otherwise no acute cardiopulmonary abnormality. at 1147 Reported and signed by: TIFFANIE AGGARWAL M.D. CC: Dahlia Sinha MD Technologist: CHRIS GONZALEZ Trnscrd Date/Time/By: 02/11/2020 (0842) : By: Gila GS29 PAGE 1 Signed Report FAX: Dahlia Sinha MD [phone] [place]: St: PRE Name: CRISTIAN DAVALOS [facility] [place] : 1970 Age/S: 49/M [address] [employer] Unit #: [id number] Loc: E.ERS2 [place], [place]: [place] [id number] Acct: [id number] Dis Date: Status: PRE ER PHONE #: [phone] Exam Date: 02/11/2020 1142 FAX #: [phone] Reason: SOB EXAMS: CPT CODE: [id number] XR CHEST 1 V 53543 (Continued) Orig Print D/T: S: 02/11/2020 (1151) PAGE 2 Signed Report
--- NOTE | 2024-08-10 18:42 | RAD REPORT ---
EXAMINATION: ONE VIEW CHEST XR CLINICAL INDICATION: CHEST PAIN TECHNIQUE: Frontal chest projection is submitted. Examination is limited by patient positioning and t echnique. COMPARISON: 06/21/2024 FINDINGS: The lungs are well inflated and clear. The heart is normal in size. No displaced fractures identified . IMPRESSION: No acute intrathoracic abnormalities.
[2024-08-10] MEDS ORDERED: ASPIRIN 81 MG CHEWABLE TABLET ONE (18:53)
[2024-08-10 19:12] LABS: Absolute Basophils 0.1 K/uL (0-0.5); Absolute Eosinophils 0.2 K/uL (0-0.5); Absolute Lymphocytes (CBC) 1.9 K/uL (0.7-4.9); Absolute Monocytes 0.5 K/uL (0.1-1.3); Absolute Neutrophil 3.1 K/uL (1.8-8.0); Basophils % 0.9 % (0-1.3); Eosinophils % 2.7 % (0-4.4); Hemoglobin 15.4 g/dL (13.6-17.9); Lymphocytes % 32.5 % (15.3-44.8); MCH 30.9 pg (27.0-35.0); MCHC 34.1 g/dL (32.0-36.0); MCV 90.6 fL (80-100); MPV 8.1 fL (7.6-11.3); Monocytes % 9.6 % (3.3-12.3); Neutrophils % 54.3 % (41.7-73.7); Nucleated Red Blood Cells % 0.1 % (0-0); PT Prothrombin Time 10.9 SECONDS (9.4-12.5); Platelets 228 thou/uL (152-406); Protime INR 0.97; RBC Red Blood Cell Count 4.97 M/uL (4.33-5.43); Red Cell Distribution Width 13.4 % (12.1-15.2)
[2024-08-10 19:40] LABS: ALT/SGPT 67 U/L (16-61); Albumin 3.5 g/dL (3.4-5.0); Albumin/Globulin Ratio 0.9 (1.1-1.8); Alkaline Phosphatase 111 U/L (45-117); BUN Blood Urea Nitrogen 22 mg/dL (7-18); Bicarbonate 27 mEq/L (21-32); Bilirubin Total 0.3 mg/dL (0.2-1.0); Glomerular Filtration Rate 75 ml/min (=/>90); Glucose Level 108 mg/dL (74-106); NT PRO-BNP 132 pg/mL (<125); Protein, Total 7.5 g/dL (6.4-8.2); Sodium Level 136 mEq/L (136-145); Troponin High Sensitivity 4.7 pg/mL (<58.9)
[2024-08-10 19:41] LABS: AST/SGOT 34 U/L (15-37); Bilirubin Direct < 0.2 mg/dL (0-0.2); Bilirubin Indirect, Calculated 0.1 mg/dL (0.2-0.8); Magnesium 2.1 mg/dL (1.6-2.4)
--- NOTE | 2024-08-10 19:43 | ER ---
Nurse's Notes [facility] Name: John Ortiz Age: 54 yrs Sex: Male : 1970 Arrival Date: 08/10/2024 Time: 17:16 Bed 27 Private MD: Diagnosis: Chest pain Presentation: 08/10 17:50 Chief complaint: Patient states: CHEST PAIN TO CENTER OF CHEST ONSET A FEW DAYS AGO. PT cm10 STATES THAT THE PAIN IS INTERMITTENT. Coronavirus screen: Client denies travel out of the [place] in the last 14 days. Ebola Screen: Patient denies travel to an Ebola-affected area in the 21 days before illness onset. No symptoms or risks identified at this time. Initial Sepsis Screen: Does the patient meet any 2 criteria? No. Patient's initial sepsis screen is negative. Does the patient have a suspected source of infection? No. Patient's initial sepsis screen is negative. Risk Assessment: Do you want to hurt yourself or someone else? Patient reports no desire to harm self or others. Onset of symptoms was August 10, 2024. 17:50 Method Of Arrival: Ambulatory cm10 17:50 Acuity: LYDIA 2 cm10 Triage Assessment: 17:52 General: Appears in no apparent distress. comfortable, Behavior is calm, cooperative. cm10 Neuro: No deficits noted. Level of Consciousness is awake, alert, obeys commands, Oriented to person, place, time, situation, Appropriate for age. Respiratory: No deficits noted. Airway is patent Respiratory effort is even, unlabored, Respiratory pattern is regular, symmetrical. Historical: - Allergies: 17:51 No Known Allergies; cm10 - PMHx: 17:51 Hypertensive disorder; cm10 - PSHx: 17:51 Appendectomy; cm10 - Immunization history:: Adult Immunizations up to date. - Infectious Disease History:: Denies. - Social history:: Smoking status: Patient reports the use of cigarette tobacco products, smokes one pack cigarettes per day. Screenin:59 [facility] ED Fall Risk Assessment (Adult) History of falling in the last 3 months, go2 including since admission No falls in past 3 months (0 pts) Confusion or Disorientation No (0 pts) Intoxicated or Sedated No (0 pts) Impaired Gait No (0 pts) Mobility Assist Device Used No (0 pt) Altered Elimination No (0 pt) Score/Fall Risk Level 0 - 2 = Low Risk. Abuse screen: Denies threats or abuse. Nutritional screening: No deficits noted. Tuberculosis screening: No symptoms or risk factors identified. Assessment: 19:58 General: Appears in no apparent distress. comfortable, Behavior is calm, cooperative, go2 Denies fever, feeling ill, fatigue, chills. Pain: Complains of pain in chest Pain does not radiate. Pain began 2-3 days ago. Neuro: No deficits noted. Cardiovascular: Reports chest pain. Respiratory: No deficits noted. GI: No deficits noted. : No deficits noted. EENT: No deficits noted. Derm: No deficits noted. Musculoskeletal: No deficits noted. 08/11 11:15 Reassessment: [facility] PATIENT TRANSPORTED TO PROCEDURE AREA FOR db ANGIOGRAM. Vital Signs: 08/10 17:50 BP 120 / 83; Pulse 82; Resp 15; Temp 97.5; Pulse Ox 99% on R/A; Weight 96.62 kg; Height cm10 6 ft. 1 in. ; Pain 0/10; 19:47 BP 134 / 92; Pulse 72; Resp 16; Temp 99; Pulse Ox 100% ; go2 21:36 BP 162 / 87; Pulse 70; Resp 16; Temp 99; Pulse Ox 100% ; go2 17:50 Body Mass Index 28.10 (96.62 kg, 185.42 cm) cm10 17:50 Pain Scale: Adult cm10 ED Course: 17:19 Patient arrived in ED. sj2 17:22 Silvia Maddox MD is Attending Physician. sp3 17:51 Triage completed. cm10 17:52 Arm band placed on right wrist. Patient placed in waiting room. cm10 17:52 EKG done, by ED staff, reviewed by Silvia Maddox MD. cm10 18:27 XRAY Chest (1 view) In Process Unspecified. EDMS 18:58 Initial lab(s) drawn, by ia, sent to lab. Inserted saline lock: 20 gauge in left jl7 forearm, using aseptic technique. Blood collected. Flushed with 10 mL NS. Patient maintains SpO2 saturation greater than 95% on room air. 19:11 Mary Berry, TIFFANY is Primary Nurse. go2 19:42 Mary Escamilla MD is Hospitalizing Provider. sp3 19:59 Patient has correct armband on for positive identification. Placed in gown. Bed in low go2 position. Call light in reach. Side rails up X2. Client placed on continuous cardiac and pulse oximetry monitoring. NIBP monitoring applied. solar manufacturer's representative on. 20:00 No provider procedures requiring assistance completed. go2 23:38 Patient admitted, IV remains in place. jb4 08/11 11:15 Provided Education on: ADMISSION AND ANGIOGRAM PROCEDURE. Warm blanket given. Pillow db given. Administered Medications: 08/10 18:58 Drug: Aspirin PO Chewable Tablet 324 mg PO once; 81 mg tablets x 4 Route: PO; jl7 Medication: 19:59 VIS not applicable for this client. go2 Outcome: 19:42 Decision to Hospitalize by Provider. sp3 23:38 Admitted to ER Hold. Please see [facility] for further documentation. jb4 23:38 Condition: stable 23:38 Discharge instructions given to patient, Instructed on the need for admit, Demonstrated understanding of instructions, 08/11 11:23 Patient left the ED. db Signatures: Dispatcher [employer] EDMS Kai Bautista, RN RN jb4 Camila Hurtado RN RN jl7 Silvia Maddox MD MD sp3 Jenniffer Hylton RN RN db Nicolasa Foster RN RN cm10 Mary Berry RN RN go2 Ethan Alcaraz [facility]
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
--- NOTE | 2024-08-10 23:21 | P.HP ---
Certification for Inpatient With expected LOS: >2 Midnights Practitioner: I am a practitioner with admitting privileges, knowledge of patient current condition, hospital course, and medical plan of care. Services: Services provided to patient in accordance with Admission requirements found in Title 42 Section 412.3 of the Code of Federal Regulations Patient History Date of Service: 08/10/24 Reason for admission: chest pain History of Present Illness: Chest pain 54-year-old male with history of hypertension presents with 2-day history of substernal chest pain. The patient was supposed to get a heart cath yesterday but was noted to be out of network. Recommended by his graphics software engineer to come to the ER. Pain described as substernal. He did have radiation to both arms at times. Denies any dyspnea. He reports previously had a stress test that was negative one month ago. He denies taking any medications currently. Allergies No Known Allergies Allergy (Verified 06/15/24 03:29) Home Medications: Aspirin [Aspirin EC] 81 mg PO DAILY #30 tab 06/22/24 Atorvastatin Calcium [Lipitor] 40 mg PO BEDTIME #30 tab 06/22/24 Metoprolol Tartrate 25 mg PO BID #60 tab 06/22/24 - Past Medical/Surgical History Diabetic: No -: appendectomy - Family History Mother -: Other (see notes) (Afib) - Social History Alcohol use: No CD- Drugs: No Caffeine use: Yes Review of Systems 10-point ROS is otherwise unremarkable Cardiovascular: Chest Pain Physical Examination - Physical Exam General: Alert, Oriented x3 HEENT: Atraumatic, Normocephalic Respiratory: Clear to auscultation bilaterally, Normal air movement Cardiovascular: Regular rate/rhythm, Normal S1 S2 Gastrointestinal: Normal bowel sounds, Soft and benign Integumentary: No rashes, No breakdown Neurological: Normal gait, Normal speech, Normal strength at 5/5 x4 extr - Studies Laboratory Data (last 24 hrs) 08/10/24 08/10/24 08/10/24 18:53 18:53 18:53 WBC 5.70 Hgb 15.4 Hct 45.0 Plt Count 228 PT 10.9 INR 0.97 Sodium 136 Potassium 4.0 BUN 22 H Creatinine 1.15 Glucose 108 H Magnesium 2.1 Total Bilirubin 0.3 AST 34 ALT 67 H Alkaline Phosphatase 111 Assessment and Plan - Problems (Diagnosis) (1) Chest pain Current Visit: No Status: Acute (2) HTN (hypertension) Current Visit: No Status: Acute - Plan 54-year-old male with history of hypertension presents to ER with 2-day history of substernal chest pain. Recently had a stress test 1 month ago. He was post to have a heart cath recently but unable to complete Chest pain sub sternal Hypertension Plan: Admit to telemetry Repeat troponin cardiology has been contacted in ER continue aspirin, statin Anticipate heart cath per cardiology - Advance Directives Does patient have a Living Will: No Does patient have a Durable POA for Healthcare: No
[2024-08-11] MEDS ORDERED: ACETAMINOPHEN 325 MG TABLET ONE ×2 (01:04→05:33)
[2024-08-11] MEDS: ACETAMINOPHEN 325 MG TABLET PO PRN (01:30)
[2024-08-11] MEDS ORDERED: MORPHINE 2 MG/ML SYR IV PRN (02:18)
[2024-08-11 02:37] VITALS: BMI 28.0
[2024-08-11 05:49] LABS: Absolute Eosinophils 0.2 K/uL (0-0.5); Absolute Lymphocytes (CBC) 1.8 K/uL (0.7-4.9); Absolute Monocytes 0.5 K/uL (0.1-1.3); Basophils % 0.9 % (0-1.3); Hematocrit 45.4 % (39.6-49.0); Hemoglobin 15.3 g/dL (13.6-17.9); Lymphocytes % 32.2 % (15.3-44.8); MCH 30.7 pg (27.0-35.0); MCHC 33.7 g/dL (32.0-36.0); MCV 91.1 fL (80-100); MPV 8.2 fL (7.6-11.3); Neutrophils % 53.9 % (41.7-73.7); Platelets 199 thou/uL (152-406); RBC Red Blood Cell Count 4.98 M/uL (4.33-5.43); Red Cell Distribution Width 13.1 % (12.1-15.2)
[2024-08-11 05:51] LABS: Specific Gravity 1.019 (1.005-1.030); Urine Bilirubin NEGATIVE (Negative); Urine Blood Negative (Negative); Urine Clarity Clear (Clear); Urine Color Light-Yellow (Yellow); Urine Glucose NEGATIVE (Negative); Urine Ketones NEGATIVE (Negative); Urine Microscopic Reflex YN NO UMIC; Urine Nitrite NEGATIVE (Negative); Urine Protein NEGATIVE (Negative); Urine Urobilinogen Normal (Normal); Urine pH 5.5 (5.0-7.0)
[2024-08-11 05:59] LABS: Albumin 3.3 g/dL (3.4-5.0); Albumin/Globulin Ratio 0.8 (1.1-1.8); Anion Gap 7.2 mEq/L (5.0-15.0); Bilirubin Total 0.3 mg/dL (0.2-1.0); Globulin 3.9 g/dL (2.3-3.5); Potassium 4.2 mEq/L (3.5-5.1); Protein, Total 7.2 g/dL (6.4-8.2)
[2024-08-11] MEDS ORDERED: ASPIRIN EC 81 MG TAB PO ONE (08:17)
[2024-08-11] MEDS ORDERED: METOPROLOL TAR 25 MG TAB ONE (08:17)
[2024-08-11] MEDS: ASPIRIN EC 81 MG TAB PO SCH (08:38)
[2024-08-11] MEDS: METOPROLOL TAR 25 MG TAB PO SCH (08:38)
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
[2024-08-11] MEDS ORDERED: HEPA 1000U/500MLS 2,000 UNIT/1,000 ML BAG IV ONE (10:29)
[2024-08-11] MEDS ORDERED: HEPARIN 10,000 UNIT/10 ML VIAL IV ONE (10:30)
[2024-08-11] MEDS ORDERED: LIDOCAINE 1% 20 ML MDV ONE (10:30)
[2024-08-11] MEDS ORDERED: MIDAZOLAM HCL 2 MG/2 ML INJ ONE (10:30)
[2024-08-11] MEDS ORDERED: NITROGLYCERIN/D5W 50 MG/250 ML BTL IV ONE (10:30)
[2024-08-11] MEDS ORDERED: NA CHLORIDE 0.9% 500 ML ONE (10:31)
[2024-08-11] MEDS ORDERED: CLOPIDOGREL 75 MG TABLET ONE (10:31)
[2024-08-11] MEDS ORDERED: HEPARIN 5000 UNIT/ML 1 ML VIAL ONE (10:31)
[2024-08-11] MEDS ORDERED: ATROPINE SULF 1 MG/10 ML SYR IV ONE (10:31)
[2024-08-11] MEDS ORDERED: TICAGRELOR 90 MG TABLET PO ONE (10:31)
[2024-08-11] MEDS ORDERED: ASPIRIN 325 MG TAB ONE (10:32)
[2024-08-11] MEDS ORDERED: FENTANYL CITR 100 MCG/2 ML ONE (10:32)
--- NOTE | 2024-08-11 17:34 | P.PN ---
Subjective Date of Service: 08/11/24 Chief Complaint: chest pain Patient denies any chest pain. He denies any shortness of breath. Physical Examination - Vital Signs Temperature: 99 F Blood Pressure: 140/77 Pulse: 68 Respirations: 16 Pulse Ox (%): 97 - Studies Laboratory Data (last 24 hrs) 08/10/24 08/10/24 08/10/24 18:53 18:53 18:53 WBC 5.70 Hgb 15.4 Hct 45.0 Plt Count 228 PT 10.9 INR 0.97 Sodium 136 Potassium 4.0 BUN 22 H Creatinine 1.15 Glucose 108 H Magnesium 2.1 Total Bilirubin 0.3 AST 34 ALT 67 H Alkaline Phosphatase 111 Assessment And Plan - Plan Physical examination General: Alert and oriented x3, NAD, HEENT: Conjunctiva not pale, anicteric sclera Neck: Supple, no elevated JVD Heart: Heart sounds 1 and 2 normal, regular rhythm, normal rate, no pedal edema Lungs: Clear to auscultation bilaterally, adequate breath sounds bilaterally, no rhonchi or crackles. Abdomen: Soft, nondistended, nontender, normal bowel sounds. Extremities: No tenderness, no deformity Skin: Normal skin turgor, no rash, no nodules or ulcers. Neuro: No focal motor deficit. Normal speech. Psychiatry: Normal mood, no agitation. Assessment and plan Chest pain Hypertension Abnormal stress test Plan: Patient with recent abnormal stress test. Patient seen and evaluated by cardiology Dr. Steve who is planning cardiac catheterization today. Continue aspirin, Lipitor and metoprolol. Titrate antihypertensives for BP control. Further management per cardiology.
--- NOTE | 2024-08-11 18:52 | OP ---
Date of Procedure: 08/11/2024 Surgeon: Jack Arrieta Procedures Performed: 1.Left heart catheterization. 2.Selective coronary angiogram. 3.PCI of the RCA with Synergy 3.0 x 16 mm drug-eluting stent. Indication For Procedure: Unstable angina. Abnormal stress test. Complications: None. Estimated Blood Loss: Less than 50 cc. Access: Right radial, closed by TR band. Sedation Time: 30 minutes with 2 of Versed and 50 of fentanyl. Description Of Procedure: After risks, and benefits, and alternatives were explained to the patient, patient agreed to proceed with procedure and signed informed consent. The patient was brought back to the school laboratory technician, prepped and draped in sterile fashion. Time-out was performed. Sedation was admini stered. Next, the right radial access was obtained using ultrasound-guided micropuncture technique. [place] 4.0 catheter was advanced over the J-wire to the LV cavity. LVEDP was obtained. Pullback did not show any gradient. Same catheter was used for selective angiogram of the left and right coronar y systems. After that, the catheter was exchanged with a JR4 catheter over advancing J-wire. The he darnell was administered. ACT was therapeutic. Runthrough wire was passed across the RCA, pre-dilated the lesion with an NC 2.5 mm balloon. Next, Synergy 3.0 x 16 mm drug-eluting stent was placed acros s the lesion that was postdilated with an NC 3.5 mm balloon. The final angiogram shows PIOTR-3 flow. At the end of procedure, catheter was removed over a J-wire. Sheath was removed. TR band was appli ed. Hemostasis was achieved. The patient was moved back to recovery in stable condition. Findings: 1.Left main normal. 2.LAD; diffuse mild luminal irregularities. 3.Left circ; proximal mild luminal irregularities, then mid occluded gives a large OM1 that bifurcat es into 2 arteries. This OM1 got proximal 60% disease but is very tortuous artery. 4.RCA; dominant with proximal mild luminal irregularities, mid 90% disease, status post PCI with Syn ergy 3.0 x 16 mm drug-eluting stent, then followed by another mid 50% to 60% disease at the bend and then distally it is 32% disease, continue as RPDA with mild luminal irregularities. 5.LVEDP 15 mmHg. Assessment And Plan: 1.Significant mid RCA disease, status post PCI with Synergy 3.0 x 16 mm drug-eluting stent. 2.Moderate mid OM1 disease, very tortuous artery. 3.Occluded mid left circ. Plan will be: 1.Aspirin 81 mg daily for life. 2.Brilinta 180 x1 was given in the school laboratory technician. I will give Plavix 300 load later and continue Plavix 75 mg daily. 3.Continue aggressive medical treatment for CAD. ELIZABETH/KP Voice ID: [id number] Report ID: [id number]
[2024-08-11] MEDS: TICAGRELOR 90 MG TABLET PO ONE (20:19)
[2024-08-11] MEDS: ATORVASTATIN 40 MG TAB PO SCH (20:19)
[2024-08-11] MEDS: CLOPIDOGREL 75 MG TABLET PO SCH (20:19)
[2024-08-11] MEDS ORDERED: TICAGRELOR 90 MG TABLET PO SCH (21:00)
[2024-08-11 22:32] VITALS: O2SAT 98
[2024-08-12 08:03] VITALS: BP 128/78
[2024-08-12] MEDS: CLOPIDOGREL 75 MG TABLET PO SCH (08:03)
[2024-08-12 10:08] VITALS: TEMP 98.6
--- NOTE | 2024-08-13 15:53 | EKG ---
Test Date: 2024-08-11 Test Time: 01:47:50 Hemstitcher: ANUM MEASUREMENT RESULTS: Intervals: Rate: 77 FL: 132 QRSD: 106 QT: 398 QTc: 450 [place]: P: 66 FL: 132 QRS: -46 T: 6 INTERPRETIVE STATEMENTS: Normal sinus rhythm Incomplete right bundle branch block Left anterior fascicular block Nonspecific ST abnormality Abnormal ECG Compared to ECG 08/10/2024 17:34:40 Incomplete right bundle-branch block now present Left anterior fascicular block now present ST (T wave) deviation now present Left-axis deviation no longer present Electronically Signed On 08-13-24 15:49:14 HEMMING AND TACKING MACHINE OPERATOR by Jack Arrieta
--- NOTE | 2024-08-13 15:55 | EKG ---
Test Date: 2024-08-10 Test Time: 17:34:40 Coal Tram Driver: LEONARDO MEASUREMENT RESULTS: Intervals: Rate: 76 AK: 130 QRSD: 102 QT: 384 QTc: 432 [place]: P: 59 AK: 130 QRS: -44 T: 39 INTERPRETIVE STATEMENTS: Normal sinus rhythm Left axis deviation Abnormal ECG Compared to ECG 06/21/2024 20:05:38 Sinus arrhythmia no longer present Electronically Signed On 08-13-24 15:50:53 DEPARTMENT SALES MANAGER by Jack Arrieta
== END 2024-08-12 10:46 | disposition home or self-care (01) | DRG 322 ==
LOC: ER 17:16 → ERHOLD 23:23 → 2ND 08-11 16:06
PROVIDERS: ADMIT Internal Medicine; ATTEND Internal Medicine
PROC: 027034Z Dilation of Coronary Artery, One Artery with Drug-eluting Intraluminal Device, Percutaneous Approach (ICD-10-PCS; principal; 2024-08-11)
PROC: 4A023N7 Measurement of Cardiac Sampling and Pressure, Left Heart, Percutaneous Approach (ICD-10-PCS; 2024-08-11)
PROC: B2111ZZ Fluoroscopy of Multiple Coronary Arteries using Low Osmolar Contrast (ICD-10-PCS; 2024-08-11)
DX: I25.10 Atherosclerotic heart disease of native coronary artery without angina pectoris (principal); I10 Essential (primary) hypertension; E78.5 Hyperlipidemia, unspecified; F17.210 Nicotine dependence, cigarettes, uncomplicated; Z90.49 Acquired absence of other specified parts of digestive tract; Z79.82 Long term (current) use of aspirin; Z79.899 Other long term (current) drug therapy
CPT/HCPCS: 36415; 71045; 76937; 80048; 80053; 80061; 80076; 81003; 83735; 83880; 84484; 85025; 85610; 92928; 93005; 93458; 99152; 99153; 99285; C1725; C1893; J0461; J1644; J2003; J2250; J2270; J3010; J7040; Q9967

== ENCOUNTER 2024-10-10 18:48 | Inpatient (IN) | payer OTHER ==
[2024-10-10] MEDS ORDERED: ASPIRIN 81 MG CHEWABLE TABLET ONE (19:47)
[2024-10-10] MEDS ORDERED: NA CHLORIDE 0.9% 500 ML ONE (19:47)
[2024-10-10 19:51] LABS: Absolute Basophils 0.1 K/uL (0-0.5); Absolute Eosinophils 0.1 K/uL (0-0.5); Absolute Lymphocytes (CBC) 1.8 K/uL (0.7-4.9); Absolute Monocytes 0.5 K/uL (0.1-1.3); Basophils % 1.2 % (0-1.3); Eosinophils % 1.7 % (0-4.4); Hematocrit 40.8 % (39.6-49.0); Hemoglobin 14.6 g/dL (13.6-17.9); MCHC 35.7 g/dL (32.0-36.0); MCV 89.6 fL (80-100); MPV 7.8 fL (7.6-11.3); Monocytes % 5.9 % (3.3-12.3); Neutrophils % 70.2 % (41.7-73.7); Nucleated Red Blood Cells % 0.3 % (0-0); Platelets 248 thou/uL (152-406); RBC Red Blood Cell Count 4.55 M/uL (4.33-5.43); Red Cell Distribution Width 14.3 % (12.1-15.2)
--- NOTE | 2024-10-10 20:05 | RAD REPORT ---
EXAMINATION: ONE VIEW CHEST XR CLINICAL INDICATION: DYSPNEA TECHNIQUE: Frontal chest projection is submitted. Examination is limited by patient positioning and t echnique. COMPARISON: 08/10/2024 FINDINGS: Emphysematous changes are present throughout the lungs. Mild reticular opacities in both lung bases m ay be related to bronchitis. The heart is upper limit of normal in size. No displaced fractures identified.
[2024-10-10 20:07] LABS: PT Prothrombin Time 11.8 SECONDS (9.4-12.5); Protime INR 1.13
[2024-10-10 20:17] LABS: ALT/SGPT 45 U/L (16-61); AST/SGOT 25 U/L (15-37); Albumin 3.2 g/dL (3.4-5.0); Albumin/Globulin Ratio 0.8 (1.1-1.8); Alkaline Phosphatase 94 U/L (45-117); Anion Gap 10.9 mEq/L (5.0-15.0); BUN Blood Urea Nitrogen 18 mg/dL (7-18); Bicarbonate 22 mEq/L (21-32); Bilirubin Total 0.3 mg/dL (0.2-1.0); Globulin 3.9 g/dL (2.3-3.5); Glomerular Filtration Rate 78 ml/min (=/>90); Glucose Level 97 mg/dL (74-106); Lipase 25 U/L (13-75); NT PRO-BNP 238 pg/mL (<125); Potassium 3.9 mEq/L (3.5-5.1); Protein, Total 7.1 g/dL (6.4-8.2); Sodium Level 136 mEq/L (136-145); Troponin High Sensitivity 4.9 pg/mL (<58.9)
[2024-10-10 20:30] LABS: Bilirubin Direct < 0.2 mg/dL (0-0.2); Bilirubin Indirect, Calculated 0.1 mg/dL (0.2-0.8)
[2024-10-10] MEDS ORDERED: ENOXAPARIN 100 MG/ML SYR SQ ONE (22:28)
[2024-10-10] MEDS ORDERED: FAMOTIDINE 20 MG/2 ML VIAL IV ONE (22:28)
--- NOTE | 2024-10-10 22:28 | ER ---
Nurse's Notes [facility] Name: John Ortiz Age: 54 yrs Sex: Male : 1970 Arrival Date: 10/10/2024 Time: 18:48 Bed 5 Private MD: Diagnosis: Chest pain, unspecified;Angina pectoris, unspecified Presentation: 10/10 19:07 Chief complaint: Patient states: Intermittent, mid-chest pain that started a few days ss ago, radiates to both arms, became worse today, also reports some SOB, had stents placed in Aug. Coronavirus screen: Vaccine status: Patient reports being unvaccinated. Ebola Screen: No symptoms or risks identified at this time. Initial Sepsis Screen: Does the patient meet any 2 criteria? No. Patient's initial sepsis screen is negative. Does the patient have a suspected source of infection? No. Patient's initial sepsis screen is negative. Risk Assessment: Do you want to hurt yourself or someone else? Patient reports no desire to harm self or others. Onset of symptoms was October 10, 2024. 19:07 Method Of Arrival: Ambulatory ss 19:07 Acuity: LYDIA 2 ss Historical: - Allergies: 19:10 No Known Allergies; ss - Home Meds: 19:10 metoprolol tartrate 25 mg oral tablet 1 tab 2 times per day [Active]; clopidogrel 75 mg ss oral tablet 1 tab daily [Active]; atorvastatin 40 mg oral tablet 1 tab every day at bedtime [Active]; aspirin 81 mg Oral tablet,chewable 1 tab daily [Active]; - PMHx: 19:10 Hypertensive disorder; ss - PSHx: 19:10 Appendectomy; ss - Immunization history:: Adult Immunizations unknown. - Infectious Disease History:: Denies. - Social history:: Smoking status: Patient reports the use of cigarette tobacco products, smokes one pack cigarettes per day. - Family history:: not pertinent. Screenin:50 [facility] ED Fall Risk Assessment (Adult) History of falling in the last 3 months, cp4 including since admission No falls in past 3 months (0 pts) Confusion or Disorientation No (0 pts) Intoxicated or Sedated No (0 pts) Impaired Gait No (0 pts) Mobility Assist Device Used No (0 pt) Altered Elimination No (0 pt) Score/Fall Risk Level 0 - 2 = Low Risk Oriented to surroundings, Maintained a safe environment, Assessed \T\ reinforced patient's understanding of fall precautions, Hourly rounding (assess needs \T\ fall precautionary measures) done. Abuse screen: Denies threats or abuse. Denies injuries from another. Nutritional screening: No deficits noted. Tuberculosis screening: No symptoms or risk factors identified. Assessment: 19:50 General: Appears in no apparent distress. comfortable, Behavior is calm, cooperative, cp4 appropriate for age. Pain: Complains of pain in chest Pain does not radiate. Pain currently is 6 out of 10 on a pain scale. Pain began 1 day ago. Neuro: Level of Consciousness is awake, alert, obeys commands, Oriented to person, place, time, situation. Cardiovascular: Patient's skin is warm and dry. Respiratory: Airway is patent Respiratory effort is even, unlabored. GI: No signs and/or symptoms were reported involving the gastrointestinal system. : No signs and/or symptoms were reported regarding the genitourinary system. EENT: No signs and/or symptoms were reported regarding the EENT system. Derm: No signs and/or symptoms reported regarding the dermatologic system. Musculoskeletal: No signs and/or symptoms reported regarding the musculoskeletal system. 21:00 Reassessment: Patient appears in no apparent distress at this time. Patient and/or cp4 family updated on plan of care and expected duration. Pain level reassessed. Patient is alert, oriented x 3, equal unlabored respirations, skin warm/dry/pink. 22:00 Reassessment: Patient appears in no apparent distress at this time. Patient and/or cp4 family updated on plan of care and expected duration. Pain level reassessed. Patient is alert, oriented x 3, equal unlabored respirations, skin warm/dry/pink. 23:32 Reassessment: Patient appears in no apparent distress at this time. Patient and/or cp4 family updated on plan of care and expected duration. Pain level reassessed. Patient is alert, oriented x 3, equal unlabored respirations, skin warm/dry/pink. Vital Signs: 19:07 BP 138 / 81; Pulse 72; Resp 18; Temp 97.8; Pulse Ox 98% ; Weight 99.79 kg; Height 6 ft. ss 1 in. ; 20:00 BP 139 / 79; Pulse 67; Resp 18; Pulse Ox 99% ; cp4 21:18 BP 144 / 84; Pulse 65; Resp 18; Pulse Ox 99% ; cp4 23:06 BP 150 / 85; Pulse 65; Resp 18; Pulse Ox 97% ; cp4 19:07 Body Mass Index 29.03 (99.79 kg, 185.42 cm) ED Course: 18:50 Patient arrived in ED. im 19:10 Triage completed. ss 19:11 Arm band placed on. ss 19:14 Jose Uriarte, RN is Primary Nurse. rg5 19:16 Keyur Singleton MD is Attending Physician. [facility] 19:43 Genoveva Guardado is Primary Nurse. cp4 19:50 Placed in gown. Bed in low position. Call light in reach. Side rails up X 1. Client cp4 placed on continuous cardiac and pulse oximetry monitoring. NIBP monitoring applied. 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 Pulse ox on. NIBP on. 19:50 Inserted saline lock: 20 gauge in right antecubital area, using aseptic technique. cp4 Blood collected. Flushed with 10 mL NS. Patient maintains SpO2 saturation greater than 95% on room air. 19:57 XRAY Chest (1 view) In Process Unspecified. EDMS 22:25 Nathan Chandler MD is Hospitalizing Provider. [facility] 10/11 01:27 No provider procedures requiring assistance completed. Patient admitted, IV remains in ha1 place. Administered Medications: 10/10 19:50 Drug: NS 0.9% IV 500 ml 500 ml IV at 100 ml/hr once Volume: 500 ml; Route: IV; Rate: cp4 100 ml/hr; Site: right antecubital; 23:30 Follow up: IV Status: Completed infusion cp4 19:50 Drug: Aspirin PO Chewable Tablet 81 mg PO once Route: PO; cp4 23:30 Follow up: Response: No adverse reaction cp4 22:30 Drug: Famotidine IVP 20 mg IVP once; dilute with 10 mL 0.9% NaCl; give over 2 minutes cp4 Route: IVP; Site: right antecubital; 23:31 Follow up: Response: No adverse reaction cp4 22:31 Drug: Enoxaparin Sub-Q 1 mg/kg Sub-Q once Route: Sub-Q; Site: abdomen; cp4 23:31 Follow up: Response: No adverse reaction cp4 Medication: 19:50 VIS not applicable for this client. cp4 Outcome: 22:27 Decision to Hospitalize by Provider. chema 10/11 01:27 Admitted to Tele accompanied by tech, via wheelchair, room 401, with chart, ha1 Condition: stable Instructed on the need for admit, Demonstrated understanding of instructions, 01:28 Patient left the ED. ha1 Signatures: Dispatcher [employer] EDKeyur Hernandes MD MD cha Blanchard, Shelby, RN RN Cassie Ng RN RN ha1 Anastasiia Curry Christina cp4 Jose Uriarte, RN RN rg5
--- NOTE | 2024-10-10 22:28 | EDPHYS ---
Physician Documentation [facility] Name: John Ortiz Age: 54 yrs Sex: Male : 1970 Arrival Date: 10/10/2024 Time: 18:48 Bed 5 Private MD: ED Physician Keyur Singleton HPI: 10/10 22:20 This 54 yrs old Male presents to ER via Ambulatory with complaints of Chest chema Pain, Headache, Shortness Of Breath, Arm Problem - pain in both arms. 22:20 The patient or guardian reports chest pain that is located primarily in the substernal chema area, anterior chest wall. Onset: just prior to arrival. The pain does not radiate. Associated signs and symptoms: The patient has no apparent associated signs or symptoms. The chest pain is described as a heaviness. Modifying factors: The symptoms are alleviated by nothing. the symptoms are aggravated by nothing. Severity of pain: At its worst the pain was moderate in the emergency department the pain is unchanged. Historical: - Allergies: 19:10 No Known Allergies; ss - Home Meds: 19:10 metoprolol tartrate 25 mg oral tablet 1 tab 2 times per day [Active]; clopidogrel 75 mg ss oral tablet 1 tab daily [Active]; atorvastatin 40 mg oral tablet 1 tab every day at bedtime [Active]; aspirin 81 mg Oral tablet,chewable 1 tab daily [Active]; - PMHx: 19:10 Hypertensive disorder; ss - PSHx: 19:10 Appendectomy; ss - Immunization history:: Adult Immunizations unknown. - Infectious Disease History:: Denies. - Social history:: Smoking status: Patient reports the use of cigarette tobacco products, smokes one pack cigarettes per day. - Family history:: not pertinent. ROS: 22:20 Constitutional: Negative for fever, chills, and weight loss, Eyes: Negative for injury, chema pain, redness, and discharge, ENT: Negative for injury, pain, and discharge, Neck: Negative for injury, pain, and swelling, Respiratory: Negative for shortness of breath, cough, wheezing, and pleuritic chest pain, Abdomen/GI: Negative for abdominal pain, nausea, vomiting, diarrhea, and constipation, Back: Negative for injury and pain, : Negative for injury, bleeding, discharge, and swelling, MS/Extremity: Negative for injury and deformity, Skin: Negative for injury, rash, and discoloration, Neuro: Negative for headache, weakness, numbness, tingling, and seizure, Psych: Negative for depression, anxiety, suicide ideation, homicidal ideation, and hallucinations, Allergy/Immunology: Negative for hives, rash, and allergies, Endocrine: Negative for neck swelling, polydipsia, polyuria, polyphagia, and marked weight changes, Hematologic/Lymphatic: Negative for swollen nodes, abnormal bleeding, and unusual bruising, 22:20 Cardiovascular: Positive for chest pain, of the chest, 22:20 Respiratory: Negative for dyspnea on exertion, shortness of breath, 22:20 MS/extremity: Negative for acute changes, Exam: 22:20 Constitutional: This is a well developed, well nourished patient who is awake, alert, chema and in no acute distress. Head/Face: Normocephalic, atraumatic. Eyes: Pupils equal round and reactive to light, extra-ocular motions intact. Lids and lashes normal. Conjunctiva and sclera are non-icteric and not injected. Cornea within normal limits. Periorbital areas with no swelling, redness, or edema. ENT: Nares patent. No nasal discharge, no septal abnormalities noted. Tympanic membranes are normal and external auditory canals are clear. Oropharynx with no redness, swelling, or masses, exudates, or evidence of obstruction, uvula midline. Mucous membranes moist. Neck: Trachea midline, no thyromegaly or masses palpated, and no cervical lymphadenopathy. Supple, full range of motion without nuchal rigidity, or vertebral point tenderness. No Meningismus. Chest/axilla: Normal chest wall appearance and motion. Nontender with no deformity. No lesions are appreciated. Cardiovascular: Regular rate and rhythm with a normal S1 and S2. No gallops, murmurs, or rubs. Normal PMI, no JVD. No pulse deficits. Respiratory: Lungs have equal breath sounds bilaterally, clear to auscultation and percussion. No rales, rhonchi or wheezes noted. No increased work of breathing, no retractions or nasal flaring. Abdomen/GI: Soft, non-tender, with normal bowel sounds. No distension or tympany. No guarding or rebound. No evidence of tenderness throughout. Back: No spinal tenderness. No costovertebral tenderness. Full range of motion. Skin: Warm, dry with normal turgor. Normal color with no rashes, no lesions, and no evidence of cellulitis. MS/ Extremity: Pulses equal, no cyanosis. Neurovascular intact. Full, normal range of motion., bilateral aka Neuro: Awake and alert, GCS 15, oriented to person, place, time, and situation. Cranial nerves II-XII grossly intact. Motor strength 5/5 in all extremities. Sensory grossly intact. Cerebellar exam normal. Normal gait. Psych: Awake, alert, with orientation to person, place and time. Behavior, mood, and affect are within normal limits. 22:20 ECG was reviewed by the Attending Physician. Vital Signs: 19:07 BP 138 / 81; Pulse 72; Resp 18; Temp 97.8; Pulse Ox 98% ; Weight 99.79 kg; Height 6 ft. ss 1 in. ; 20:00 BP 139 / 79; Pulse 67; Resp 18; Pulse Ox 99% ; cp4 21:18 BP 144 / 84; Pulse 65; Resp 18; Pulse Ox 99% ; cp4 23:06 BP 150 / 85; Pulse 65; Resp 18; Pulse Ox 97% ; cp4 19:07 Body Mass Index 29.03 (99.79 kg, 185.42 cm) ss MDM: 19:16 Medical Screening Exam initiated chema 22:23 Differential diagnosis: abnormal EKG, acute myocardial infarction, acute pericarditis, chema anxiety, chest wall pain, Cholelithiasis costochondritis, esophagitis, gastritis, gastroesophageal reflux disease (GERD), herpes zoster, pancreatitis, peptic ulcer disease, pericarditis, pneumothorax, pulmonary embolus, stable angina, thoracic aortic disection, unstable angina. HEART Score: History: Moderately Suspicious (1), ECG: Non specific repolarization disturbance / LBTB / PM (1), Age: > 45 and < 65 years (1), Risk Factors: > or = 3 Risk factors for atherosclerotic disease (2), [Hypercholesterolemia] [Hypertension] [+ Family HX] [Obesity] Troponin: < or = 1 x Normal Limit (0). The patient was given aspirin in the Emergency Department. PIOTR Risk Score: 1 - Three or more CAD risk factors, 1- Known CAD, 1 - ASA use in past 7 days, 1 - Recent [<24hrs] Severe Angina, TOTAL SCORE = 4. Data reviewed: vital signs, nurses notes, lab test result(s), EKG, radiologic studies, plain films. Consideration of Admission/Observation Escalation of care including admission/observation considered. I considered the following discharge prescriptions or medication management in the emergency department Medications were administered in the Emergency Department. See MAR. Test considered but Not performed: Ultrasound no 2 d echo. Historians other than the Patient: pt well informed. Care significantly affected by the following chronic conditions: Hypertension. Counseling: I had a detailed discussion with the patient and/or guardian regarding the historical points, exam findings, and any diagnostic results supporting the discharge/admit diagnosis, lab results, radiology results, the need for further work-up and treatment in the hospital. 10/10 19:41 Order name: Basic Metabolic Panel; Complete Time: 22:19 chema 10/10 19:41 Order name: CBC with Diff; Complete Time: 22:19 chema 10/10 19:41 Order name: LFT's; Complete Time: 22:19 chema 10/10 19:41 Order name: Magnesium; Complete Time: 22:19 chema 10/10 19:41 Order name: NT PRO-BNP; Complete Time: 22:19 chema 10/10 19:41 Order name: PT-INR; Complete Time: 22:19 chema 10/10 19:41 Order name: Troponin HS; Complete Time: 22:19 chema 10/10 19:41 Order name: Urinalysis w/ reflexes [facility] 10/10 19:41 Order name: Lipase; Complete Time: 22:19 chema 10/10 23:10 Order name: Urinalysis w/ reflexes EDMA 10/10 23:10 Order name: CBC with Automated Diff EDMA 10/10 23:10 Order name: CBC with Automated Diff EDMS 10/10 23:10 Order name: Comprehensive Metabolic Panel EDMA 10/10 23:10 Order name: Comprehensive Metabolic Panel EDMS 10/10 23:10 Order name: Troponin High Sensitivity EDMS 10/10 23:10 Order name: Troponin High Sensitivity EDMS 10/10 23:10 Order name: Troponin High Sensitivity EDMS 10/10 23:10 Order name: Troponin High Sensitivity EDMA 10/10 19:41 Order name: XRAY Chest (1 view); Complete Time: 22:19 chema 10/10 19:41 Order name: Cardiac monitoring; Complete Time: 19:43 chema 10/10 19:41 Order name: EKG - Nurse/Tech; Complete Time: 19:43 chema 10/10 19:41 Order name: IV Saline Lock; Complete Time: :43 [facility] 10/10 19:41 Order name: Labs collected and sent; Complete Time: :43 [facility] 10/10 19:41 Order name: O2 Per Protocol; Complete Time: :43 [facility] 10/10 19:41 Order name: O2 Sat Monitoring; Complete Time: :43 [facility] EC:20 Rate is 66 beats/min. Rhythm is regular. QRS Matthews is Normal. MD interval is normal. QRS chema interval is normal. QT interval is normal. No Q waves. T waves are Normal. No ST changes noted. Clinical impression: NSR w/ Non-specific ST/T Changes and No evidence of ischemia. Interpreted by me. Reviewed by me. Administered Medications: 19:50 Drug: NS 0.9% IV 500 ml 500 ml IV at 100 ml/hr once Volume: 500 ml; Route: IV; Rate: cp4 100 ml/hr; Site: right antecubital; 23:30 Follow up: IV Status: Completed infusion cp4 19:50 Drug: Aspirin PO Chewable Tablet 81 mg PO once Route: PO; cp4 23:30 Follow up: Response: No adverse reaction cp4 22:30 Drug: Famotidine IVP 20 mg IVP once; dilute with 10 mL 0.9% NaCl; give over 2 minutes cp4 Route: IVP; Site: right antecubital; 23:31 Follow up: Response: No adverse reaction cp4 22:31 Drug: Enoxaparin Sub-Q 1 mg/kg Sub-Q once Route: Sub-Q; Site: abdomen; cp4 23:31 Follow up: Response: No adverse reaction cp4 Disposition Summary: 10/10/24 22:27 Hospitalization Ordered Notes: Hospitalization Status: Observation chema Provider: Nathan Chandler cha Location: Telemetry/MedSurg (observation) chema Condition: Stable chema Problem: new chema Symptoms: have improved chema Bed/Room Type: Standard [facility] Room Assignment: 401(10/10/24 23:27) rv1 Diagnosis - Chest pain, unspecified chema - Angina pectoris, unspecified chema Forms: - Medication Reconciliation Form chema - SBAR form chema - Leadership Thank You Letter chema Signatures: Dispatcher [employer] Keyur Cummins MD MD cha Blanchard, Shelby RN RN Vesta Horner rv1 Genoveva Guardado cp4 Corrections: (The following items were deleted from the chart) 22:27 chema mcneill
[2024-10-10 22:44] LABS: Sqamous Epithelial <5 /HPF (None Seen); Urine Bacteria None Seen /HPF (<20); Urine Bilirubin NEGATIVE (Negative); Urine Blood Negative (Negative); Urine Clarity Clear (Clear); Urine Color Colorless (Yellow); Urine Culture Reflex Order NOT NEEDED; Urine Glucose NEGATIVE (Negative); Urine Ketones NEGATIVE (Negative); Urine Microscopic Reflex YN ORDER UMIC; Urine Nitrite NEGATIVE (Negative); Urine Protein NEGATIVE (Negative); Urine RBC <5 /HPF (None Seen); Urine Urobilinogen Normal (Normal); Urine WBC <5 /HPF (<5); Urine pH 5.5 (5.0-7.0)
[2024-10-10] MEDS ORDERED: ACETAMINOPHEN 325 MG TABLET PO PRN (23:05)
[2024-10-10] MEDS ORDERED: ONDANSETRON 4 MG/2 ML VIAL IV PRN (23:05)
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
[2024-10-11 01:40] VITALS: BMI 32.8
[2024-10-11 06:19] LABS: Absolute Basophils 0.1 K/uL (0-0.5); Absolute Eosinophils 0.2 K/uL (0-0.5); Absolute Monocytes 0.5 K/uL (0.1-1.3); Absolute Neutrophil 4.6 K/uL (1.8-8.0); Eosinophils % 2.9 % (0-4.4); Hematocrit 41.2 % (39.6-49.0); Hemoglobin 14.5 g/dL (13.6-17.9); Lymphocytes % 35.7 % (15.3-44.8); MCH 31.6 pg (27.0-35.0); MCHC 35.2 g/dL (32.0-36.0); MCV 89.8 fL (80-100); MPV 7.7 fL (7.6-11.3); Monocytes % 5.5 % (3.3-12.3); Neutrophils % 54.9 % (41.7-73.7); Nucleated Red Blood Cells % 0.1 % (0-0); Platelets 277 thou/uL (152-406); RBC Red Blood Cell Count 4.59 M/uL (4.33-5.43); Red Cell Distribution Width 14.3 % (12.1-15.2)
[2024-10-11 06:31] LABS: Albumin 3.2 g/dL (3.4-5.0); Albumin/Globulin Ratio 0.9 (1.1-1.8); Anion Gap 7.8 mEq/L (5.0-15.0); Bilirubin Total 0.3 mg/dL (0.2-1.0); Globulin 3.5 g/dL (2.3-3.5); Potassium 3.8 mEq/L (3.5-5.1); Protein, Total 6.7 g/dL (6.4-8.2)
[2024-10-11] MEDS: ACETAMINOPHEN 500 MG TAB PO ONE (07:51)
[2024-10-11] MEDS: ASPIRIN EC 81 MG TAB PO SCH (07:52)
[2024-10-11] MEDS: CLOPIDOGREL 75 MG TABLET PO SCH (09:00)
[2024-10-11] MEDS: METOPROLOL TAR 25 MG TAB PO SCH (09:00)
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
[2024-10-11] MEDS ORDERED: REGADENOSON 0.4 MG/5 ML SYR IV ONE (13:19)
--- NOTE | 2024-10-11 14:01 | RAD REPORT ---
EXAM :Rest Stress Cardiac Imaging CLINICAL HISTORY: Chest pain TECHNIQUE: Rest images: 10.9 mCi technetium 99m sestamibi administered intravenously. Stress images: 29.4 mCi of technetium 99m sestamibi administered intravenously. Cardiac SPECT images obtained COMPARISON: 2023. FINDINGS: Rest and stress images demonstrate large area of decreased radiotracer activity within the inferior l eft ventricular myocardium which extends towards the apex and septum. On stress images there is small to moderate area of diminished radiotracer activity involving the ant erior lateral left ventricular myocardium. On rest images this demonstrates partial reaccumulation of radiotracer Left ventricular ejection fraction equals 39% IMPRESSION: Small to moderate partially reversible perfusion defect anterior lateral left ventricular myocardium which may represent an infarct with mild periinfarct ischemia Large fixed perfusion defect inferior left ventricular myocardium probably infarction
--- NOTE | 2024-10-11 14:36 | P.PN ---
Date of Service: 10/11/24 Subjective no c/o pain this am. Asked pt to remain NPO for stress test this am. He is willing Review of Systems 10-point ROS is otherwise unremarkable Physical Examination - Vital Signs reviewed - Physical Exam General: Alert, In no apparent distress HEENT: Atraumatic, Normocephalic Neck: Supple, JVD not distended Respiratory: Clear to auscultation bilaterally, Normal air movement Cardiovascular: No edema, Regular rate/rhythm, Normal S1 S2 Capillary refill: <2 Seconds Gastrointestinal: Soft and benign, Non-distended, W/out hepatosplenomegaly Musculoskeletal: No clubbing, No swelling Integumentary: No rashes Neurological: Normal speech, Normal strength at 5/5 x4 extr, Cranial nerves 3-12 intact Lymphatics: No axilla or inguinal lymphadenopathy - Studies Laboratory Data (last 24 hrs) 10/10/24 10/10/24 10/10/24 19:44 19:44 19:44 WBC 8.50 Hgb 14.6 Hct 40.8 Plt Count 248 PT 11.8 INR 1.13 Sodium 136 Potassium 3.9 BUN 18 Creatinine 1.11 Glucose 97 Magnesium 2.0 Total Bilirubin 0.3 AST 25 ALT 45 Alkaline Phosphatase 94 Lipase 25 Assessment and Plan Chest pain to rule out ACS Will trend cardiac enzymes - trending negative, will ask pt to remain NPO for stress as he had Stress and PCI in Aug Will monitor telemetry Started on aspirin and statin EKG did not show any acute changes suggestive of ischemia Patient denies any chest pain at the time of interview Cardiology consult - Dr. Arrieta to assess later this am Hypertension Antihypertensives titrated Continue home medications and titrate as needed Elevated BNP No previous history of CHF Will get an echocardiogram GI/DVT prophylaxis Advanced directive full code Discharge Plan: Home Plan to discharge in: 24 Hours - Advance Directives Does patient have a Living Will: No Does patient have a Durable POA for Healthcare: No - Code Status/Comfort Care Code Status: Full Code
[2024-10-11] MEDS: ATORVASTATIN 40 MG TAB PO SCH (21:14)
[2024-10-12] MEDS: NA CHLORIDE 0.9% 500 ML ONE (08:49)
[2024-10-12] MEDS ORDERED: HEPA 1000U/500MLS 2,000 UNIT/1,000 ML BAG IV ONE (09:55)
[2024-10-12] MEDS ORDERED: FENTANYL CITR 100 MCG/2 ML ONE (09:56)
[2024-10-12] MEDS ORDERED: MIDAZOLAM HCL 2 MG/2 ML INJ ONE (09:56)
[2024-10-12] MEDS ORDERED: HEPARIN 5000 UNIT/ML 1 ML VIAL ONE (09:56)
[2024-10-12] MEDS ORDERED: LIDOCAINE 1% 20 ML MDV ONE (09:56)
--- NOTE | 2024-10-12 10:12 | TREADPHA ---
DX: CHEST PAIN Date of Study: 10/11/2024 Ht: 5' 9 " Wt: 222 lb 11.2 oz Consulting Physician: LUCIA MEDICATIONS: TYLENOL, ASPIRIN, LIPITOR, PLAVIX, LOPRESSOR, ZOFRAN HISTORY: 54 YEAR OLD MALE WITH COMPLAINTS OF CHEST PAIN. NO KNOWN DRUG ALLERGY. HISTORY OF CARDIAC STENT TIMES ONE AND HYPERTENSION PHYSICIAL EXAMINATION: RESTING B.P.: 128/82 RESTING H.R.: 49 RESTING EKG: SINUS BRADYCARDIA PROTOCOL: PHARMACOLOGIC EXERCISE TIME: 3:30 B.P. AT [place] STRESS: 161/86 IMPRESSION: LEXISCAN INJECTED. CARDIOLITE INJECTED - SEE NUCLEAR MEDICINE REPORT. NO CHEST PAIN. NO ARRHYTHMIA (HEART RATE 70's).
[2024-10-12] MEDS ORDERED: CLOPIDOGREL 75 MG TABLET ONE (11:10)
--- NOTE | 2024-10-12 11:47 | P.PN ---
Subjective Date of Service: 10/12/24 Chief Complaint: Chest Pain Subjective: No new changes, No C/O voiced, Tolerating diet, Ambulating, Improving Review of Systems 10-point ROS is otherwise unremarkable Physical Examination - Vital Signs Temperature: 97.8 F Blood Pressure: 146/77 Pulse: 43 Respirations: 18 Pulse Ox (%): 93 - Physical Exam General: Alert, In no apparent distress HEENT: Atraumatic, PERRLA, EOMI Neck: Supple, JVD not distended Respiratory: Clear to auscultation bilaterally, Normal air movement Cardiovascular: Regular rate/rhythm, Normal S1 S2 Gastrointestinal: Normal bowel sounds, No tenderness Musculoskeletal: No tenderness Integumentary: No rashes Neurological: Normal speech, Normal tone, Normal affect Lymphatics: No axilla or inguinal lymphadenopathy - Studies Medications List Reviewed: Yes Assessment And Plan - Current Problems (Diagnosis) (1) Chest pain Current Visit: No Status: Acute Plan: patient with recent PCI RCA with moderate distal RCA and OM disease. stress test abnormal showing reverisble ischemia in lateral wall with inferior infarct coronary angiogram done and PCI of OM1 done with Synergy HELEN, patent RCA stent continue ASA 81 mg daily continue Plavix 75 mg daily continue lipitor (2) HLD (hyperlipidemia) Current Visit: No Status: Acute Plan: continue lipitor 40 mg daily (3) HTN (hypertension) Current Visit: No Status: Acute Plan: continue metoprolol
--- NOTE | 2024-10-12 12:46 | EKG ---
Test Date: 2024-10-10 Test Time: 19:29:41 [facility] Social Worker: ELLITOT MEASUREMENT RESULTS: Intervals: Rate: 66 WV: 134 QRSD: 106 QT: 412 QTc: 431 Parker: P: 59 WV: 134 QRS: -37 T: 1 INTERPRETIVE STATEMENTS: Normal sinus rhythm Left axis deviation Abnormal ECG Compared to ECG 08/11/2024 01:47:50 Left-axis deviation now present Incomplete right bundle-branch block no longer present Left anterior fascicular block no longer present ST (T wave) deviation no longer present Electronically Signed On 10-12-24 12:42:24 SILK WEAVER by Jack Arrieta
--- NOTE | 2024-10-12 13:31 | ECHO ---
HEIGHT: 5 ft 9 in WEIGHT: 222 lb 11.2 oz DATE OF STUDY: 10/11/[address]: Anil Chandler DO 2-DIMENSIONAL: YES M.MODE: YES DOPPLER: YES COLOR FLOW: YES TDS: PORTABLE: YES DEFINITY: BUBBLE STUDY: DIAGNOSIS: CHEST PAIN CARDIAC HISTORY: CATHERIZATION: YES SURGERY: NO PROSTHETIC VALVE: NO PACEMAKER: NO MEASUREMENTS (cm) DIASTOLIC (NORMALS) SYSTOLIC (NORMALS) IVSd 1.2 (0.6-1.2) LA Diam 2.8 (1.9-4.0) LVEF 55-60% LVIDd 5.8 (3.5-5.7) LVIDs 4.3 (2.0-3.5) %FS 26% LVPWd 1.3 (0.6-1.2) Ao Diam 3.0 (2.0-3.7) 2 DIMENSIONAL ASSESSMENT: RIGHT ATRIUM: NORMAL LEFT ATRIUM: NORMAL RIGHT VENTRICLE: NORMAL LEFT VENTRICLE: NORMAL TRICUSPID VALVE: NORMAL MITRAL VALVE: NORMAL PULMONIC VALVE: NORMAL AORTIC VALVE: NORMAL PERICARDIAL EFFUSION: NONE AORTIC ROOT: NORMAL LEFT VENTRICULAR WALL MOTION: NORMAL DOPPLER/COLOR FLOW: NORMAL COMMENTS: 1. NORMAL LEFT VENTRICULAR SYSTOLIC FUNCTION, EJECTION FRACTION 55-60%, NORMAL WALL MOTION 2. NORMAL DIASTOLIC FUNCTION TECHNOLOGIST: ANNELIESE DREW
--- NOTE | 2024-10-12 19:00 | P.PN ---
Date of Service: 10/12/24 Subjective no c/o pain this am. + stress test yesterday, [facility] scheduled for this am. Review of Systems 10-point ROS is otherwise unremarkable Physical Examination - Vital Signs reviewed - Physical Exam General: Alert, In no apparent distress HEENT: Atraumatic, Normocephalic Neck: Supple, JVD not distended Respiratory: Clear to auscultation bilaterally, Normal air movement Cardiovascular: No edema, Regular rate/rhythm, Normal S1 S2 Capillary refill: <2 Seconds Gastrointestinal: Soft and benign, Non-distended, W/out hepatosplenomegaly Musculoskeletal: No clubbing, No swelling Integumentary: No rashes Neurological: Normal speech, Normal strength at 5/5 x4 extr Lymphatics: No axilla or inguinal lymphadenopathy Assessment and Plan Chest pain to rule out ACS Will trend cardiac enzymes - trending negative, will ask pt to remain NPO for [facility] this am - went to paint laboratory technician at 0900 Will monitor telemetry Continue aspirin and statin Patient denies any chest pain Dr. Arrieta following Hypertension Antihypertensives titrated Continue home medications and titrate as needed Elevated BNP No previous history of CHF Will get an echocardiogram - done and normal GI/DVT prophylaxis Advanced directive full code Discharge Plan: Home Plan to discharge in: in am - Advance Directives Does patient have a Living Will: No Does patient have a Durable POA for Healthcare: No - Code Status/Comfort Care Code Status: Full Code
--- NOTE | 2024-10-12 19:06 | P.DS ---
Admission Date: 10/11/24 Discharge Date: 10/13/24 Reason for Admission: Chest Pain Consultations: Dr. Arrieta Procedures: Stress test (+), proceeded to [facility] (+), PCI to OM Brief History of Present Illness: 54 yrs old Male with with a past medical history of hypertension came to ER with chest pain and shortness of breath. Pain is substernal with radiation to anterior chest wall and also to both arms. Denies any diaphoresis. Pressure- like feeling. Subsided at the time of interview. No fever or chills. No sick contacts. Denies any nausea vomiting or diarrhea. Patient was assessed in the ER and is admitted for further management of chest pain to rule out ACS Hospital Course: Mr. Ortiz has done well over his hospitalization. He had a positive stress test with reversible ischemia to the lateral wall. "IMPRESSION:Small to moderate partially reversible perfusion defect anterior lateral left ventricular myocardium which may represent an infarct with mild periinfarct ischemia Large fixed perfusion defect inferior left ventricular myocardium probably infarction" Echo performed on same day shows "1. NORMAL LEFT VENTRICULAR SYSTOLIC FUNCTION, EJECTION FRACTION 55-60%, NORMAL WALL MOTION 2. NORMAL DIASTOLIC FUNCTION" 10/12/2024 he had a left heart cath and received PCI in the . He will continue on his current medications and follow-up with Dr. Arrieta in 2 weeks <Patria Arce - Last Filed: 10/13/24 08:28> Admission Date: 10/11/24 Discharge Date: 10/13/24 Hospital Course: Discharge diagnosis Unstable angina Coronary artery disease status post stent Asymptomatic bradycardia on metoprolol Nicotine use disorder Obesity I will titrate down metoprolol to 25 mg twice daily and add 50 mg losartan to control hypertension. <PAULINE Kulkarni - Last Filed: 10/13/24 10:56> Disposition: ROUTINE DISCHARGE Discharge Condition: GOOD Vital Signs/Physical Exam: Temp Pulse Resp BP Pulse Ox 98.0 F 79 18 150/92 H 96 10/12/24 15:44 10/12/24 15:44 10/12/24 15:44 10/12/24 15:44 10/12/24 15:44 General: Alert, In no apparent distress, Oriented x3 HEENT: Atraumatic, Normocephalic, PERRLA Neck: Supple Respiratory: Clear to auscultation bilaterally, Normal air movement Cardiovascular: Regular rate/rhythm, Normal S1 S2, Other (brendan 58) Capillary refill: <2 Seconds Gastrointestinal: Normal bowel sounds, Soft and benign Musculoskeletal: No clubbing, No swelling Integumentary: No rashes Neurological: Normal speech, Normal tone, Normal affect, Other (neurvasc to right wrist/hand intact) Lymphatics: No axilla or inguinal lymphadenopathy External genitalia: Deferred Rectal: Deferred Laboratory Data at Discharge: WBC 8.50 thou/uL (4.3-10.9) 10/11/24 05:52 Hgb 14.5 g/dL (13.6-17.9) 10/11/24 05:52 Hct 41.2 % (39.6-49.0) 10/11/24 05:52 Plt Count 277 thou/uL (152-406) 10/11/24 05:52 PT 11.8 SECONDS (9.4-12.5) 10/10/24 19:44 INR 1.13 10/10/24 19:44 Sodium 138 mEq/L (136-145) 10/11/24 05:52 Potassium 3.8 mEq/L (3.5-5.1) 10/11/24 05:52 BUN 16 mg/dL (7-18) 10/11/24 05:52 Creatinine 1.09 mg/dL (0.70-1.30) 10/11/24 05:52 Glucose 98 mg/dL (74-106) 10/11/24 05:52 Magnesium 2.0 mg/dL (1.6-2.4) 10/10/24 19:44 Total Bilirubin 0.3 mg/dL (0.2-1.0) 10/11/24 05:52 AST 16 U/L (15-37) 10/11/24 05:52 ALT 41 U/L (16-61) 10/11/24 05:52 Alkaline Phosphatase 88 U/L (45-117) 10/11/24 05:52 Lipase 25 U/L (13-75) 10/10/24 19:44 <Arce,Patria Pedro - Last Filed: 10/13/24 08:28> Vital Signs/Physical Exam: Temp Pulse Resp BP Pulse Ox 97.9 F 57 16 143/83 H 93 10/13/24 09:58 10/13/24 09:58 10/13/24 09:58 10/13/24 09:58 10/13/24 09:58 Laboratory Data at Discharge: WBC 8.50 thou/uL (4.3-10.9) 10/11/24 05:52 Hgb 14.5 g/dL (13.6-17.9) 10/11/24 05:52 Hct 41.2 % (39.6-49.0) 10/11/24 05:52 Plt Count 277 thou/uL (152-406) 10/11/24 05:52 PT 11.8 SECONDS (9.4-12.5) 10/10/24 19:44 INR 1.13 10/10/24 19:44 Sodium Cancelled 10/13/24 07:22 Potassium Cancelled 10/13/24 07:22 BUN Cancelled 10/13/24 07:22 Creatinine Cancelled 10/13/24 07:22 Glucose Cancelled 10/13/24 07:22 Magnesium 2.0 mg/dL (1.6-2.4) 10/10/24 19:44 Total Bilirubin 0.3 mg/dL (0.2-1.0) 10/11/24 05:52 AST 16 U/L (15-37) 10/11/24 05:52 ALT 41 U/L (16-61) 10/11/24 05:52 Alkaline Phosphatase 88 U/L (45-117) 10/11/24 05:52 Lipase 25 U/L (13-75) 10/10/24 19:44 <PAULINE Kulkarni - Last Filed: 10/13/24 10:56> Diet: AHA Activity: Ad christina <Patria Arce - Last Filed: 10/13/24 08:28> <PAULINE Kulkarni - Last Filed: 10/13/24 10:56> Home Medications: Atorvastatin Calcium [Lipitor] 40 mg PO BEDTIME #30 tab 06/22/24 Aspirin [Aspirin EC] 81 mg PO DAILY #30 tab 08/12/24 Clopidogrel Bisulfate [Plavix*] 75 mg PO DAILY #30 tab 08/12/24 Losartan Potassium [Cozaar*] 50 mg PO DAILY #90 tab 10/13/24 Metoprolol Tartrate [Lopressor*] 12.5 mg PO BID #180 tab 10/13/24 New Medications: Losartan Potassium [Cozaar*] 50 mg PO DAILY #90 tab Metoprolol Tartrate [Lopressor*] 12.5 mg PO BID #180 tab Physician Discharge Instructions: Stress test (+), proceeded to [facility] (+), PCI to OM Brief History of Present Illness: 54 yrs old Male with with a past medical history of hypertension came to ER with chest pain and shortness of breath. Pain is substernal with radiation to anterior chest wall and also to both arms. Denies any diaphoresis. Pressure- like feeling. Subsided at the time of interview. No fever or chills. No sick contacts. Denies any nausea vomiting or diarrhea. Patient was assessed in the ER and is admitted for further management of chest pain to rule out ACS Hospital Course: Mr. Ortiz has done well over his hospitalization. He had a positive stress test with reversible ischemia to the lateral wall. "IMPRESSION:Small to moderate partially reversible perfusion defect anterior lateral left ventricular myocardium which may represent an infarct with mild periinfarct ischemia Large fixed perfusion defect inferior left ventricular myocardium probably infarction" Echo performed on same day shows "1. NORMAL LEFT VENTRICULAR SYSTOLIC FUNCTION, EJECTION FRACTION 55-60%, NORMAL WALL MOTION 2. NORMAL DIASTOLIC FUNCTION" 10/12/2024 he had a left heart cath and received PCI in the OM. He will continue on his current medications and follow-up with Dr. Arrieta in 2 weeks Continue home medicines as previously prescribed GOAL: Clear understanding of disease process Diet: AHA, low sodium Activity: Fall precautions INSTRUCTIONS: Physician Discharge Instructions: Okay to DC IV and DC home Follow-up with primary care provider in 1 to 2 weeks Follow-up with cardiology in 1 to 2-week Please call the inpatient unit for any questions or concerns regarding hospital stay Return to the ER for worsening symptoms Followup: Jack Arrieta MD [ACTIVE - CAN ADMIT] - 1-2 Weeks NONE,NONE [UNKNOWN] -
[2024-10-12] MEDS: METOPROLOL TAR 25 MG TAB PO SCH (20:12)
--- NOTE | 2024-10-12 20:24 | OP ---
Date of Procedure: 10/12/2024 Surgeon: Jack Arrieta Procedures Performed: 1. Selective coronary angiogram. 2. Percutaneous coronary intervention of the obtuse marginal 1 with Synergy 2.5 x 12 mm drug-eluting stent. Indication For Procedure: Unstable angina, abnormal stress test. Complications: None. Estimated Blood Loss: Less than 50 cc. Access: Right radial, closed by TR band. Sedation Time: 30 minutes with 1 of Versed and 50 of fentanyl. Description Of Procedure: After risks, benefits, and alternatives were explained to the patient, the patient agreed to proceed with procedure and signed informed consent. The patient was brought back to the optical laboratory technician, prepped and draped in sterile fashion. Time-out was performed. Sedation was admini stered. Next, the right radial access was obtained using ultrasound-guided micropuncture technique. Spruce 4 catheter was advanced over the J-wire to the aortic root. Selective angiogram was done usin g the same catheter. The catheter was later exchanged for an EBU 3.0 mm guide. Heparin was administ ered. ACT was therapeutic. Runthrough wire was passed across the OM1 lesion, pre-dilated the lesion with an NC 2.5 mm balloon. Next, Synergy 2.5 x 12 mm drug-eluting stent was placed across the lesio n, that was postdilated with an NC 3.0 mm balloon. Final angiogram shows PIOTR-3 flow. Catheter was removed over a J-wire. Sheath was removed. TR band was applied. Hemostasis achieved. The patient was moved to recovery in stable condition. Findings: 1. Left main: Normal. 2. LAD: Diffuse mild luminal irregularities, gives a diagonal branch that is diffuse diseased with m ild luminal irregularities. 3. Left circumflex: Proximal mild luminal regularities, continues as OM2 that got mid 70% to 80% dis ease, status post PCI with Synergy 2.5 x 12 mm drug-eluting stent. The circumflex itself is occluded and is a small artery. 4. RCA: Proximal to mid stent patent. Then distal, there is 30% to 40% disease. Then continues as RPDA with mild luminal regularities. Assessment And Plan: 1. Significant obtuse marginal 1 disease, status post percutaneous coronary intervention with Synergy 2.5 x 12 mm drug-eluting stent. 2. Patent proximal to mid right coronary artery stent with moderate mid to distal right coronary bonita ry. Continue medical management for that. Plan: 1. Aspirin 81 mg daily for life. 2. Plavix 75 mg daily for 12 months. 3. Continue aggressive medical treatment for CAD. RIDGE Voice ID: [id number] Report ID: [id number]
[2024-10-13 08:16] VITALS: BP 143/83; TEMP 97.9
[2024-10-13] MEDS: LOSARTAN POTASSIUM 50 MG TABLET PO SCH (08:38)
--- NOTE | 2024-10-13 09:58 | P.PN ---
Subjective Date of Service: 10/13/24 Chief Complaint: Chest Pain Subjective: No new changes, No C/O voiced, Tolerating diet, Ambulating, Improving Review of Systems 10-point ROS is otherwise unremarkable Physical Examination - Vital Signs Temperature: 97.9 F Blood Pressure: 143/83 Pulse: 57 Respirations: 16 Pulse Ox (%): 93 - Physical Exam General: Alert, In no apparent distress HEENT: Atraumatic, PERRLA, EOMI Neck: Supple, JVD not distended Respiratory: Clear to auscultation bilaterally, Normal air movement Cardiovascular: Regular rate/rhythm, Normal S1 S2 Gastrointestinal: Normal bowel sounds, No tenderness Musculoskeletal: No tenderness Integumentary: No rashes Neurological: Normal speech, Normal tone, Normal affect Lymphatics: No axilla or inguinal lymphadenopathy - Studies Medications List Reviewed: Yes Assessment And Plan - Current Problems (Diagnosis) (1) Chest pain Status: Acute Plan: patient with recent PCI RCA with moderate distal RCA and OM disease. stress test abnormal showing reverisble ischemia in lateral wall with inferior infarct coronary angiogram done and PCI of OM1 done with Synergy HELEN, patent RCA stent continue ASA 81 mg daily continue Plavix 75 mg daily continue lipitor (2) HLD (hyperlipidemia) Status: Acute Plan: continue lipitor 40 mg daily (3) HTN (hypertension) Status: Acute Plan: continue metoprolol
[2024-10-13 10:12] VITALS: O2SAT 93
== END 2024-10-13 09:48 | disposition home or self-care (01) | DRG 322 ==
LOC: ER 18:48 → ERHOLD 23:05 → 4TH 10-11 01:32 → OBSVTOIN 10-11 16:03
PROVIDERS: ADMIT Family Medicine; ATTEND Internal Medicine
PROC: 027034Z Dilation of Coronary Artery, One Artery with Drug-eluting Intraluminal Device, Percutaneous Approach (ICD-10-PCS; principal; 2024-10-12)
PROC: 4A023N7 Measurement of Cardiac Sampling and Pressure, Left Heart, Percutaneous Approach (ICD-10-PCS; 2024-10-12)
PROC: B2111ZZ Fluoroscopy of Multiple Coronary Arteries using Low Osmolar Contrast (ICD-10-PCS; 2024-10-12)
DX: I25.110 Atherosclerotic heart disease of native coronary artery with unstable angina pectoris (principal); I10 Essential (primary) hypertension; E78.5 Hyperlipidemia, unspecified; E66.9 Obesity, unspecified; F17.210 Nicotine dependence, cigarettes, uncomplicated; R00.1 Bradycardia, unspecified; Z95.5 Presence of coronary angioplasty implant and graft; Z79.82 Long term (current) use of aspirin; Z90.49 Acquired absence of other specified parts of digestive tract; Z79.02 Long term (current) use of antithrombotics/antiplatelets; Z79.899 Other long term (current) drug therapy; Z68.32 Body mass index [BMI] 32.0-32.9, adult
CPT/HCPCS: 36415; 71045; 76937; 78452; 80048; 80053; 80076; 81001; 83690; 83735; 83880; 84484; 85025; 85347; 85610; 92928; 93005; 93017; 93306; 93454; 96361; 96372; 96374; 99152; 99153; 99285; A9500; C1725; C1893; G0378; J1644; J1650; J2003; J2250; J2785; J3010; J7040; Q9967

== ENCOUNTER 2024-12-10 19:20 | Emergency (ER) | payer OTHER, SELFPAY ==
--- NOTE | 2024-12-10 20:14 | EDPHYS ---
Physician Documentation [facility] Name: John Ortiz Age: 54 yrs Sex: Male : 1970 Arrival Date: 12/10/2024 Time: 19:20 Bed Waiting Private MD: MASON Physician Keyur Singleton HPI: 12/10 20:15 This 54 yrs old Male presents to ER via Ambulatory with complaints of dr5 Toothache. 20:15 The patient presents with broken tooth/teeth, pain, redness, swelling. The problem is dr5 located in the upper right cuspid, upper right lateral incisor, upper right central incisor, upper left central incisor, upper left lateral incisor and upper left cuspid. Onset: The symptoms/episode began/occurred 3 day(s) ago. Patient is a 54-year-old male with history of hypertension and cardiac stent coming in with bilateral upper tooth pain with developing abscess for the past 3 days. Patient denies fever. Patient has been taking Tylenol and ibuprofen combination with mild relief.. Historical: - Allergies: 20:13 No Known Allergies; lg3 - PMHx: 20:13 Hypertensive disorder; lg3 - PSHx: 20:13 Appendectomy; cardiac stent (Appendectomy); lg3 - Immunization history:: Adult Immunizations up to date. - Infectious Disease History:: Denies. - Social history:: Smoking status: Patient reports the use of cigarette tobacco products, smokes one-half pack cigarettes per day, Patient uses alcohol, occasionally. Patient/guardian denies using street drugs. ROS: 20:15 Constitutional: as per hpi dr5 Exam: 20:15 Constitutional: This is a well developed, well nourished patient who is awake, alert, dr5 and in no acute distress. Head/Face: Normocephalic, atraumatic. Neck: Trachea midline, no thyromegaly or masses palpated, and no cervical lymphadenopathy. Supple, full range of motion without nuchal rigidity, or vertebral point tenderness. No Meningismus. Chest/axilla: Normal chest wall appearance and motion. Nontender with no deformity. No lesions are appreciated. Cardiovascular: Regular rate and rhythm with a normal S1 and S2. Normal PMI, no JVD. No pulse deficits. Respiratory: Lungs have equal breath sounds bilaterally, clear to auscultation. No rales, rhonchi or wheezes noted. No increased work of breathing, no retractions or nasal flaring. Back: No spinal tenderness. No costovertebral tenderness. Full range of motion. Skin: Warm, dry with normal turgor. Normal color with no rashes, no lesions, and no evidence of cellulitis. MS/ Extremity: Pulses equal, no cyanosis. Neurovascular intact. Full, normal range of motion. Neuro: Awake and alert, GCS 15, oriented to person, place, time, and situation. Cranial nerves II-XII grossly intact. Motor strength 5/5 in all extremities. Sensory grossly intact. Cerebellar exam normal. Normal gait. 20:15 ENT: Mouth: Lips: normal, Gums: pink, reddened, abscess, that is minimal, of the frenulum and gums, No trismus. Patient speaking in full sentences. No drooling., Vital Signs: 20:11 BP 179 / 99; Pulse 71; Resp 16 S; Temp 98.4(O); Pulse Ox 97% on R/A; Weight 99.79 kg lg3 (R); Height 6 ft. 1 in. (R); Pain 10/10; 20:11 Body Mass Index 29.03 (99.79 kg, 185.42 cm) lg3 20:11 Pain Scale: Adult lg3 MDM: 19:28 Medical Screening Exam initiated dr5 20:15 Differential diagnosis: dental caries, dental abscess, pericoronitis. Data reviewed: dr5 vital signs, nurses notes. I considered the following discharge prescriptions or medication management in the emergency department Medications were administered in the Emergency Department. See MAR. Care significantly affected by the following Social Determinants of Health: Poor access to healthcare and/or lack of insurance, Poor access to transportation, Problems related to employment. Counseling: I had a detailed discussion with the patient and/or guardian regarding the historical points, exam findings, and any diagnostic results supporting the discharge/admit diagnosis, the presence of at least one elevated blood pressure reading (>120/80) during this emergency department visit, the need for outpatient follow up, for definitive care, a dentist, a family practitioner, to return to the emergency department if symptoms worsen or persist or if there are any questions or concerns that arise at home. ED course: Patient given 2 [place] in ER. Patient has ride home. Recommended patient follow-up with dentist on Friday. Will cover possible developing dental infection with Augmentin as well as tramadol for pain. Recommended patient alternate Tylenol and Motrin individually versus the combo. This way patient will get full dose of medication. All questions answered. Strict ER precautions given. Administered Medications: 20:18 Drug: HYDROcodone-acetaminophen PO 5 mg-325 mg 2 tabs PO once Route: PO; lg3 20:18 Follow up: Response: No adverse reaction; Medication administered at discharge. lg3 Disposition Summary: 12/10/24 20:13 Discharge Ordered Notes: Location: Home dr5 Condition: Stable dr5 Diagnosis - Dental caries, unspecified dr5 Followup: dr5 - With: Emergency Department - When: As needed - Reason: Worsening of condition Followup: dr5 - With: Private Physician - When: 1 - 2 days - Reason: Recheck today's complaints, Continuance of care, Re-evaluation by your physician Discharge Instructions: - Discharge Summary Sheet dr5 - Dental Abscess dr5 - Dental Caries, Adult dr5 Forms: - Medication Reconciliation Form dr5 - Antibiotic Education dr5 - Patient Portal Instructions dr5 - Leadership Thank You Letter dr5 Prescriptions: - Augmentin 875-125 mg Oral Tablet - take 1 tablet ORAL route every 12 hours for 10 days; 20 tablet; Refills: 0, dr5 Product Selection Permitted - Tramadol 50 mg Oral Tablet - take 1 tablet ORAL route every 8 hours as needed; 12 tablet; Refills: 0, dr5 Product Selection Permitted Signatures: Mame Persaud RN RN lg3 Ben Castillo, SADIE-C WOOD HEEL BACK LINER-Cdr5
--- NOTE | 2024-12-10 20:14 | ER ---
Nurse's Notes [facility] Name: John Ortiz Age: 54 yrs Sex: Male : 1970 Arrival Date: 12/10/2024 Time: 19:20 Bed Waiting [facility] MD: Diagnosis: Dental caries, unspecified Presentation: 12/10 20:11 Chief complaint: Patient states: upper bilateral teeth pain X3 days. Coronavirus lg3 screen: Client denies travel out of the [place] in the last 14 days. At this time, the client does not indicate any symptoms associated with coronavirus-19. Ebola Screen: No symptoms or risks identified at this time. Initial Sepsis Screen: Does the patient meet any 2 criteria? No. Patient's initial sepsis screen is negative. Does the patient have a suspected source of infection? No. Patient's initial sepsis screen is negative. Risk Assessment: Do you want to hurt yourself or someone else? Patient reports no desire to harm self or others. Onset of symptoms is unknown. 20:11 Method Of Arrival: Ambulatory lg3 20:11 Acuity: LYDIA 4 lg3 Triage Assessment: 20:13 General: Appears in no apparent distress. uncomfortable, Behavior is calm, cooperative. lg3 Pain: Complains of pain in mouth Pain currently is 10 out of 10 on a pain scale. EENT: Oral mucosa is moist. Poor dentition noted. Reports pain. Neuro: No deficits noted. Bolaños Agitation-Sedation Scale (RASS): 0 - Alert and Calm Level of Consciousness is awake, alert, obeys commands, Oriented to person, place, time, situation. Cardiovascular: No deficits noted. Denies chest pain, shortness of breath, Capillary refill < 3 seconds Clubbing of nail beds is absent JVD is absent Patient's skin is warm and dry. Respiratory: No deficits noted. Airway is patent Respiratory effort is even, unlabored, Respiratory pattern is regular, symmetrical, Breath sounds are clear bilaterally. GI: No deficits noted. No signs and/or symptoms were reported involving the gastrointestinal system. : No signs and/or symptoms were reported regarding the genitourinary system. Derm: No deficits noted. No signs and/or symptoms reported regarding the dermatologic system. Skin is intact, is healthy with good turgor, Skin is dry, Skin is normal, Skin temperature is warm. Musculoskeletal: No deficits noted. No signs and/or symptoms reported regarding the musculoskeletal system. Circulation, motion, and sensation intact. Range of motion: intact in all extremities. Historical: - Allergies: 20:13 No Known Allergies; lg3 - PMHx: 20:13 Hypertensive disorder; lg3 - PSHx: 20:13 Appendectomy; cardiac stent (Appendectomy); lg3 - Immunization history:: Adult Immunizations up to date. - Infectious Disease History:: Denies. - Social history:: Smoking status: Patient reports the use of cigarette tobacco products, smokes one-half pack cigarettes per day, Patient uses alcohol, occasionally. Patient/guardian denies using street drugs. Screenin:14 [facility] ED Fall Risk Assessment (Adult) History of falling in the last 3 months, lg3 including since admission No falls in past 3 months (0 pts) Confusion or Disorientation No (0 pts) Intoxicated or Sedated No (0 pts) Impaired Gait No (0 pts) Mobility Assist Device Used No (0 pt) Altered Elimination No (0 pt) Score/Fall Risk Level 0 - 2 = Low Risk Oriented to surroundings, Maintained a safe environment, Educated pt \T\ family on fall prevention, incl call for assistance when getting out of bed, Assessed \T\ reinforced patient's understanding of fall precautions. Abuse screen: Denies threats or abuse. Denies injuries from another. Nutritional screening: No deficits noted. Tuberculosis screening: No symptoms or risk factors identified. Assessment: 20:14 General: see triage assessment. lg3 Vital Signs: 20:11 BP 179 / 99; Pulse 71; Resp 16 S; Temp 98.4(O); Pulse Ox 97% on R/A; Weight 99.79 kg lg3 (R); Height 6 ft. 1 in. (R); Pain 10/10; 20:11 Body Mass Index 29.03 (99.79 kg, 185.42 cm) lg3 20:11 Pain Scale: Adult lg3 ED Course: 19:21 Patient arrived in ED. rg4 19:28 Ben Castillo FNP-C is [facility]. dr5 19:28 Keyur Singleton MD is Attending Physician. dr5 20:13 Triage completed. lg3 20:13 Arm band placed on right wrist. lg3 20:14 Patient has correct armband on for positive identification. lg3 20:14 No provider procedures requiring assistance completed. Patient did not have IV access lg3 during this emergency room visit. Administered Medications: 20:18 Drug: HYDROcodone-acetaminophen PO 5 mg-325 mg 2 tabs PO once Route: PO; lg3 20:18 Follow up: Response: No adverse reaction; Medication administered at discharge. lg3 Medication: 20:14 VIS not applicable for this client. lg3 Outcome: 20:13 Discharge ordered by . dr5 20:20 Discharged to home ambulatory, lg3 20:20 Condition: stable 20:20 Discharge instructions given to patient, Instructed on discharge instructions, follow up and referral plans. medication usage, Demonstrated understanding of instructions, follow-up care, medications, Prescriptions given X 2, 20:20 Patient left the ED. lg3 Signatures: Codi Edgar rg4 Mame Persaud RN RN lg3 Ben Castillo, HEEL BUFFER-C HEEL BUFFER-Cdr5
[2024-12-10] MEDS ORDERED: HYDROCODONE/APAP 5/325 MG TAB ONE (20:18)
[2024-12-10 20:30] VITALS: BP 179/99; TEMP 98.4; O2SAT 97
== END 2024-12-10 20:20 | disposition home or self-care (01) ==
LOC: ER 19:20
DX: K02.9 Dental caries, unspecified (principal)
CPT/HCPCS: 99283

== ENCOUNTER 2024-12-12 17:46 | Emergency (ER) | payer SELFPAY ==
[2024-12-12] MEDS ORDERED: NA CHLORIDE 0.9% 1,000 ML ONE (19:28)
[2024-12-12] MEDS ORDERED: MORPHINE 4 MG/ML SYR ONE ×2 (19:28→23:40)
[2024-12-12] MEDS ORDERED: ONDANSETRON 4 MG/2 ML VIAL ONE ×2 (19:28→23:40)
[2024-12-12 20:09] LABS: Absolute Eosinophils 0.2 K/uL (0-0.5); Absolute Monocytes 0.4 K/uL (0.1-1.3); Absolute Neutrophil 8.7 K/uL (1.8-8.0); Basophils % 0.2 % (0-1.3); Hematocrit 44.4 % (39.6-49.0); Hemoglobin 15.8 g/dL (13.6-17.9); Lymphocytes % 9.9 % (15.3-44.8); MCH 32.2 pg (27.0-35.0); MCHC 35.6 g/dL (32.0-36.0); MCV 90.3 fL (80-100); MPV 7.6 fL (7.6-11.3); Monocytes % 3.4 % (3.3-12.3); Neutrophils % 84.5 % (41.7-73.7); Platelets 198 thou/uL (152-406); RBC Red Blood Cell Count 4.92 M/uL (4.33-5.43); Red Cell Distribution Width 13.2 % (12.1-15.2)
[2024-12-12 20:28] LABS: Albumin 3.3 g/dL (3.4-5.0); Albumin/Globulin Ratio 0.9 (1.1-1.8); Anion Gap 7.9 mEq/L (5.0-15.0); Bilirubin Total 0.6 mg/dL (0.2-1.0); Globulin 3.8 g/dL (2.3-3.5); Protein, Total 7.1 g/dL (6.4-8.2)
[2024-12-12 20:31] LABS: Potassium 4.9 mEq/L (3.5-5.1)
--- NOTE | 2024-12-12 22:16 | RAD REPORT ---
EXAM: CT Soft Tissue Neck W/Contr INDICATION: [facility] MAIN N/A Possible dental abscess Bed Name: IW2 TECHNIQUE: Helical CT examination of the neck with IV contrast. Sagittal and coronal reformations wer e generated. This exam was performed according to our departmental dose-optimization program, which includes automated exposure control, adjustment of the mA and/or kV according to patient size and/or use of iterative reconstruction technique. COMPARISON: None. FINDINGS: Mucosal spaces: Nasopharynx, oropharynx, oral cavity, larynx and hypopharynx are normal. No suspiciou s masses. Epiglottis is normal in configuration. True vocal cords cords are normally situated. Piriform sinuses are well-aerated. Extensive carious changes. Multiple periapical collections along the maxillary and mandibular teeth, largest is present along the right posterior most mandibular molar, with lingual cortex defect on axial image 46. No appreciable subperiosteal fluid collections allowing for dental hardware which burgos its evaluation. Lymph Nodes: No pathologic appearing cervical lymph nodes. Salivary Glands: Unremarkable. Thyroid Gland: Normal Included Intracranial Structures: Normal Included Orbits: Normal Paranasal Sinuses: Polypoidal mucosal thickening along the maxillary sinuses. Tympanomastoid Cavities: Normal Vascular Structures: Normal Osseous Structures: No acute osseous abnormality. Included Lung Apices: Normal IMPRESSION: Dental and periodontal disease as above, with multiple periapical collections suggesting abscesses la rgest along the posterior-most right mandibular molar. No appreciable subperiosteal fluid collections, allowing for streak artifact resulting from dental hardware.
--- NOTE | 2024-12-12 22:21 | RAD REPORT ---
EXAMINATION: CT Abdomen Pelvis W Contrast CLINICAL INDICATION: Male, 54 years old. RLQ abdominal pain TECHNIQUE: CT abdomen and pelvis was performed, after the administration of IV contrast, as per depar replaced by [facility] protocol. Axial, sagittal and coronal reconstructions were obtained. One or more of the following dose reduction techniques were used: Automated exposure control, adjustment of the mA and k V according to patient size, and iterative reconstruction. Unless otherwise specified, incidental findings do not require dedicated imaging follow-up. COMPARISON: 04/15/2024 FINDINGS: LOWER CHEST: The visualized lung bases are clear. LIVER: Normal in size and contour. No focal lesion. BILIARY SYSTEM: No suspicious abnormalities. SPLEEN: Normal size. No focal lesion. PANCREAS: No mass, ductal dilation, or norma-pancreatic fluid. ADRENALS: Small bilateral adrenal nodules, stable, largest measuring 2 cm on the left and 1.7 cm on t he right. KIDNEYS: Normal size and contour. No hydronephrosis. Early contrast excretion within the collecting s ystems and upper ureters limits evaluation for calculi. URINARY BLADDER: Unremarkable. GASTROINTESTINAL TRACT: No evidence of free air, significant intra-abdominal free fluid, bowel obstru ction or abscess. Nonspecific fluid opacification within nondistended distal small bowel and proximal colon. APPENDIX: Appendix surgically absent. LYMPH NODES: No lymphadenopathy. MUSCULOSKELETAL: No acute or suspicious osseous abnormality. ADDITIONAL FINDINGS: Mild prostatomegaly with calcifications. Moderate atherosclerotic calcific plaqu e throughout the aorta and its main branches.. IMPRESSION: Nonspecific fluid opacification of nondistended distal small bowel and proximal colon, may relate to enterocolitis or diarrheal state. Other stable incidental findings as above.
[2024-12-12] MEDS ORDERED: AMPICILLIN/SULBACTAM 3GM/VIAL ONE (23:40)
[2024-12-12] MEDS ORDERED: NA CHLORIDE 0.9% 100 ML ONE (23:41)
--- NOTE | 2024-12-13 00:34 | EDPHYS ---
Physician Documentation [facility] Name: John Ortiz Age: 54 yrs Sex: Male : 1970 Arrival Date: 12/12/2024 Time: 17:46 Bed 18 Private MD: ED Physician Roverto Hall HPI: 12/12 18:20 This 54 yrs old Male presents to ER via Unassigned with complaints of dr5 Abdominal Pain, Toothache. 18:20 The patient presents with abdominal pain right lower quadrant. Onset: The dr5 symptoms/episode began/occurred yesterday. 18:20 Patient is a 54 year old male presenting with right lower intermittent abdominal pain dr5 that started yesterday. Patient also reports he has been taking Augmentin since it was prescribed. Patient has hx of HTN, cardiac stents ([place]) and Hyperlipidemia. Patient's last BM was yesterday morning. Pt has hx of appendectomy. Patient plans on seeing dentist tomorrow.. Historical: - Allergies: 18:20 No Known Allergies; jl7 - Home Meds: 18:20 aspirin 81 mg Oral tablet 1 tab daily [Active]; atorvastatin 40 mg Oral tablet 1 tab jl7 every day at bedtime [Active]; clopidogrel 75 mg Oral tablet 1 tab daily [Active]; metoprolol tartrate 25 mg Oral tablet 1 tab 2 times per day [Active]; - PMHx: 18:20 Hypertensive disorder; Hypercholesterolemia; jl7 - PSHx: 18:20 Appendectomy; cardiac stent (ec); jl7 - Immunization history:: Adult Immunizations unknown. - Infectious Disease History:: Denies. - Social history:: Smoking status: Patient reports the use of cigarette tobacco products, smokes one-half pack cigarettes per day. ROS: 18:20 Constitutional: as per hpi dr5 Exam: 12/13 01:44 Constitutional: This is a well developed, well nourished patient who is awake, alert, dr5 and in no acute distress. Head/Face: Normocephalic, atraumatic. Eyes: Pupils equal round and reactive to light, extra-ocular motions intact. Lids and lashes normal. Conjunctiva and sclera are non-icteric and not injected. Cornea within normal limits. Periorbital areas with no swelling, redness, or edema. Chest/axilla: Normal chest wall appearance and motion. Nontender with no deformity. No lesions are appreciated. Cardiovascular: Regular rate and rhythm with a normal S1 and S2. Normal PMI, no JVD. No pulse deficits. Respiratory: Lungs have equal breath sounds bilaterally, clear to auscultation. No rales, rhonchi or wheezes noted. No increased work of breathing, no retractions or nasal flaring. Abdomen/GI: Soft, non-tender, non-distended Skin: Warm, dry with normal turgor. Normal color with no rashes, no lesions, and no evidence of cellulitis. MS/ Extremity: Pulses equal, no cyanosis. Neurovascular intact. Full, normal range of motion. Neuro: Awake and alert, GCS 15, oriented to person, place, time, and situation. Cranial nerves II-XII grossly intact. Motor strength 5/5 in all extremities. Sensory grossly intact. Cerebellar exam normal. Normal gait. ENT: Mouth: abscess, that is minimal, of the lower left second molar, lower left first molar, lower left second bicuspid, lower right first bicuspid, lower right second bicuspid and lower right first molar, Negative Trismus. Patient speaking in full sentences., Vital Signs: 12/12 18:17 BP 140 / 87; Pulse 83; Resp 15; Temp 98.8; Pulse Ox 94% ; Weight 102.06 kg; Height 6 jl7 ft. 1 in. ; Pain 8/10; 19:45 BP 158 / 92; Pulse 71; Resp 18; Pulse Ox 97% on R/A; Pain 8/10; rg5 21:45 BP 191 / 105; Pulse 71; Resp 18; Pulse Ox 95% ; rg5 22:55 BP 168 / 102; Pulse 75; Resp 18; Pulse Ox 97% ; rg5 18:17 Body Mass Index 29.69 (102.06 kg, 185.42 cm) jl7 18:17 Pain Scale: Adult jl7 19:45 Pain Scale: Adult rg5 MDM: 17:56 Medical Screening Exam initiated dr5 12/13 01:44 Differential diagnosis: Dental abscess, colitis, electrolyte abnormality. Data dr5 reviewed: vital signs, nurses notes. I considered the following discharge prescriptions or medication management in the emergency department Medications were administered in the Emergency Department. See MAR. Care significantly affected by the following chronic conditions: Hyperlipidemia, HTN. Care significantly affected by the following Social Determinants of Health: Poor access to healthcare and/or lack of insurance, Poor access to transportation, Problems related to employment. Counseling: I had a detailed discussion with the patient and/or guardian regarding the historical points, exam findings, and any diagnostic results supporting the discharge/admit diagnosis, the presence of at least one elevated blood pressure reading (>120/80) during this emergency department visit, lab results, radiology results, the need for outpatient follow up, for definitive care, a dentist, a family practitioner, to return to the emergency department if symptoms worsen or persist or if there are any questions or concerns that arise at home. Medication response: Morphine, Zofran, Unasyn. Response to treatment: the patient's symptoms have markedly improved after treatment. ED course: Patient reports he is feeling much better. Will have patient follow-up with dentist tomorrow and continue taking Augmentin for colitis as well as dental abscess. No collectible fluid noted on CT. No tenderness to palpation on face. All questions answered. Strict ER precautions given. First dose of Unasyn given in ER.. 12/12 18:19 Order name: CBC with Diff; Complete Time: 20:15 dr5 12/12 18:19 Order name: CMP; Complete Time: 20:32 dr5 12/12 18:19 Order name: Lipase; Complete Time: 20:32 dr5 12/12 18:19 Order name: Soft Tissue Neck W/Contr CT; Complete Time: 22:43 dr5 12/12 18:19 Order name: CT Abd/Pelvis - IV Contrast Only; Complete Time: 22:43 dr5 12/12 18:19 Order name: IV Saline Lock; Complete Time: 20:02 dr5 12/12 18:19 Order name: Labs collected and sent; Complete Time: 20:02 dr5 Administered Medications: 12/12 20:02 Drug: Ondansetron IVP 4 mg IVP once; over 2 minutes Route: IVP; Site: left forearm; rg5 21:59 Follow up: Response: No adverse reaction rg5 20:02 Drug: morphine IVP or IV 4 mg IVP once over 4 mins Route: IVP; Infused Over: 4 mins; rg5 Site: left forearm; 21:59 Follow up: Response: No adverse reaction; Pain is decreased rg5 20:02 Drug: NS 0.9% IV 1000 ml IV at 1 bolus Per protocol; to be given as a bolus over 60 rg5 minutes Route: IV; Rate: 1 bolus; Site: left forearm; 22:48 Follow up: IV Status: Completed infusion; IV Intake: 1000ml rg5 23:45 Drug: Ondansetron IVP 4 mg IVP once; over 2 minutes Route: IVP; Site: left forearm; rg5 23:50 Drug: morphine IVP or IV 4 mg IVP once over 4 mins Route: IVP; Infused Over: 4 mins; rg5 Site: left forearm; 12/13 00:03 Drug: Ampicillin-Sulbactam Sodium IVPB 3 grams IVPB once over 30 mins; (mix in 100 mL rg5 NS) Route: IVPB; Infused Over: 30 mins; Site: left forearm; Disposition: 10:57 Co-signature as Attending Physician, Roverto Hall MD I reviewed the patient's care rn provided by the Advanced Practice Provider and agree with the diagnosis and treatment plan. Disposition Summary: 12/13/24 00:33 Discharge Ordered Notes: Location: Home dr5 Condition: Stable dr5 Diagnosis - Other specified noninfective gastroenteritis and colitis dr5 - Dental root caries dr5 Followup: dr5 - With: Emergency Department - When: As needed - Reason: Worsening of condition Followup: dr5 - With: Private Physician - When: 1 - 2 days - Reason: Recheck today's complaints, Continuance of care, Re-evaluation by your physician Discharge Instructions: - Discharge Summary Sheet dr5 - Dental Abscess dr5 - Colitis dr5 Forms: - Medication Reconciliation Form dr5 - Antibiotic Education dr5 - Patient Portal Instructions dr5 - Leadership Thank You Letter dr5 Prescriptions: - Zofran 4 mg Oral Tablet - take 1 tablet ORAL route every 12 hours As needed; 20 tablet; Refills: 0, dr5 Product Selection Permitted Signatures: Dispatcher [employer] EDRoverto Lorenzo MD MD rn Leal, Jahala RN RN jl7 Jose Uriarte RN RN rg5 Ben Castillo FNP-C COLLECTION TELLER-Cdr5 Corrections: (The following items were deleted from the chart) 12/12 18:20 18:20 Soft Tissue Neck W/Contr+CT.RAD.BRZ ordered. EDMS EDMS 18:20 18:20 CBC+H.LAB.BRZ ordered. EDMS EDMS 18:20 18:20 COMPREHENSIVE METABOLIC PANEL+C.LAB.BRZ ordered. EDMS EDMS 18:20 18:20 LIPASE+C.LAB.BRZ ordered. EDMS EDMS 18:20 18:20 Abdomen Pelvis W Con+CT.RAD.BRZ ordered. EDMS EDMS
--- NOTE | 2024-12-13 00:34 | ER ---
Nurse's Notes [facility] Name: John Ortiz Age: 54 yrs Sex: Male : 1970 Arrival Date: 12/12/2024 Time: 17:46 Bed 18 Private MD: Diagnosis: Other specified noninfective gastroenteritis and colitis;Dental root caries Presentation: 12/12 18:17 Chief complaint: Patient states: RLQ abdominal pain x 1 day, reports feeling jl7 constipated, recently treated for tooth infection, woke this morning with worse swelling that extends underneath bilateral eyes. Coronavirus screen: At this time, the client does not indicate any symptoms associated with coronavirus-19. Ebola Screen: No symptoms or risks identified at this time. Initial Sepsis Screen: Does the patient meet any 2 criteria? No. Patient's initial sepsis screen is negative. Does the patient have a suspected source of infection? No. Patient's initial sepsis screen is negative. Risk Assessment: Do you want to hurt yourself or someone else? Patient reports no desire to harm self or others. Onset of symptoms is unknown. 18:17 Method Of Arrival: Ambulatory 7 18:17 Acuity: LYDIA 3 jl7 Triage Assessment: 18:20 General: Appears Behavior is calm, cooperative, appropriate for age. General: Appears jl7 in no apparent distress. uncomfortable. Pain: Complains of pain in abdomen and mouth. GI: Abdomen is non-distended, Reports constipation. Historical: - Allergies: 18:20 No Known Allergies; jl7 - Home Meds: 18:20 aspirin 81 mg Oral tablet 1 tab daily [Active]; atorvastatin 40 mg Oral tablet 1 tab jl7 every day at bedtime [Active]; clopidogrel 75 mg Oral tablet 1 tab daily [Active]; metoprolol tartrate 25 mg Oral tablet 1 tab 2 times per day [Active]; - PMHx: 18:20 Hypertensive disorder; Hypercholesterolemia; jl7 - PSHx: 18:20 Appendectomy; cardiac stent (ec); jl7 - Immunization history:: Adult Immunizations unknown. - Infectious Disease History:: Denies. - Social history:: Smoking status: Patient reports the use of cigarette tobacco products, smokes one-half pack cigarettes per day. Screenin:40 [facility] ED Fall Risk Assessment (Adult) History of falling in the last 3 months, rg5 including since admission No falls in past 3 months (0 pts) Confusion or Disorientation No (0 pts) Intoxicated or Sedated No (0 pts) Impaired Gait No (0 pts) Mobility Assist Device Used No (0 pt) Altered Elimination No (0 pt) Score/Fall Risk Level 0 - 2 = Low Risk Oriented to surroundings, Maintained a safe environment, Hourly rounding (assess needs \T\ fall precautionary measures) done. Abuse screen: Denies threats or abuse. Nutritional screening: No deficits noted. Tuberculosis screening: No symptoms or risk factors identified. Assessment: 19:40 General: Appears comfortable, Behavior is calm, cooperative, appropriate for age. rg5 19:40 Pain: Complains of pain in abdomen Pain currently is 7 out of 10 on a pain scale. rg5 Quality of pain is described as aching. Neuro: Level of Consciousness is awake, alert, obeys commands, Oriented to person, place, time, situation. Cardiovascular: Capillary refill < 3 seconds Patient's skin is warm and dry. Respiratory: Airway is patent Trachea midline Respiratory effort is even, unlabored, Respiratory pattern is regular, symmetrical. GI: Bowel sounds present in left upper quadrant Abd is soft Reports lower abdominal pain, upper abdominal pain, cramping. : No signs and/or symptoms were reported regarding the genitourinary system. EENT: No signs and/or symptoms were reported regarding the EENT system. Derm: Skin is intact, Skin is dry, Skin is normal. Musculoskeletal: Circulation, motion, and sensation intact. Range of motion: intact in all extremities. 20:00 Reassessment: No changes from previously documented assessment. Patient and/or family rg5 updated on plan of care and expected duration. Pain level reassessed. Patient is alert, oriented x 3, equal unlabored respirations, skin warm/dry/pink. 21:00 Reassessment: No changes from previously documented assessment. Patient and/or family rg5 updated on plan of care and expected duration. Pain level reassessed. Patient is alert, oriented x 3, equal unlabored respirations, skin warm/dry/pink. 22:00 Reassessment: Patient and/or family updated on plan of care and expected duration. Pain rg5 level reassessed. Patient is alert, oriented x 3, equal unlabored respirations, skin warm/dry/pink. Patient states feeling better. 23:00 Reassessment: Patient and/or family updated on plan of care and expected duration. Pain rg5 level reassessed. Patient is alert, oriented x 3, equal unlabored respirations, skin warm/dry/pink. Patient states symptoms have improved. 12/13 00:00 Reassessment: Patient and/or family updated on plan of care and expected duration. Pain rg5 level reassessed. Patient is alert, oriented x 3, equal unlabored respirations, skin warm/dry/pink. Patient states feeling better. Patient states symptoms have improved. Vital Signs: 12/12 18:17 BP 140 / 87; Pulse 83; Resp 15; Temp 98.8; Pulse Ox 94% ; Weight 102.06 kg; Height 6 jl7 ft. 1 in. ; Pain 8/10; 19:45 BP 158 / 92; Pulse 71; Resp 18; Pulse Ox 97% on R/A; Pain 8/10; rg5 21:45 BP 191 / 105; Pulse 71; Resp 18; Pulse Ox 95% ; rg5 22:55 BP 168 / 102; Pulse 75; Resp 18; Pulse Ox 97% ; rg5 18:17 Body Mass Index 29.69 (102.06 kg, 185.42 cm) jl7 18:17 Pain Scale: Adult jl7 19:45 Pain Scale: Adult rg5 ED Course: 17:51 Patient arrived in ED. cj3 17:56 Ben Castillo FNP-C is [facility]. dr5 17:56 Roverto Hall MD is Attending Physician. dr5 18:20 Triage completed. jl7 18:20 Arm band placed on right wrist. Patient placed in waiting room, Patient notified of jl7 wait time. 19:21 Jose Uriarte, RN is Primary Nurse. rg5 19:40 Patient has correct armband on for positive identification. Bed in low position. Call rg5 light in reach. Side rails up X 1. Client placed on continuous cardiac and pulse oximetry monitoring. NIBP monitoring applied. scientific technical writer on. Pulse ox on. Door closed. Noise minimized. 19:40 No provider procedures requiring assistance completed. Inserted saline lock: 20 gauge rg5 in left forearm, using aseptic technique. Blood collected. Flushed with 10 mL NS. 21:19 Soft Tissue Neck W/Contr CT In Process Unspecified. EDMS 21:19 CT Abd/Pelvis - IV Contrast Only In Process Unspecified. EDMS 12/13 00:50 IV discontinued, bleeding controlled, No redness/swelling at site. Pressure dressing rg5 applied. Administered Medications: 12/12 20:02 Drug: Ondansetron IVP 4 mg IVP once; over 2 minutes Route: IVP; Site: left forearm; rg5 21:59 Follow up: Response: No adverse reaction rg5 20:02 Drug: morphine IVP or IV 4 mg IVP once over 4 mins Route: IVP; Infused Over: 4 mins; rg5 Site: left forearm; 21:59 Follow up: Response: No adverse reaction; Pain is decreased rg5 20:02 Drug: NS 0.9% IV 1000 ml IV at 1 bolus Per protocol; to be given as a bolus over 60 rg5 minutes Route: IV; Rate: 1 bolus; Site: left forearm; 22:48 Follow up: IV Status: Completed infusion; IV Intake: 1000ml rg5 23:45 Drug: Ondansetron IVP 4 mg IVP once; over 2 minutes Route: IVP; Site: left forearm; rg5 23:50 Drug: morphine IVP or IV 4 mg IVP once over 4 mins Route: IVP; Infused Over: 4 mins; rg5 Site: left forearm; 12/13 00:03 Drug: Ampicillin-Sulbactam Sodium IVPB 3 grams IVPB once over 30 mins; (mix in 100 mL rg5 NS) Route: IVPB; Infused Over: 30 mins; Site: left forearm; Medication: 12/12 19:40 VIS not applicable for this client. rg5 Intake: 22:48 IV: 1000ml; Total: 1000ml. rg5 Outcome: 12/13 00:33 Discharge ordered by . dr5 00:50 Discharged to home ambulatory, rg5 00:50 Condition: stable 00:50 Condition: stable 00:50 Instructed on discharge instructions, follow up and referral plans. Demonstrated understanding of instructions, follow-up care, medications, Prescriptions given X 1, 00:51 Patient left the ED. rg5 Signatures: Dispatcher [employer] EDMS Camila Hurtado RN RN jl7 Jose Uriarte RN RN rg5 Ben Castillo, MEDIA MARKETING MANAGER-C MEDIA MARKETING MANAGER-Cdr5 Saba Berkowitz 3
[2024-12-13 00:55] VITALS: TEMP 98.8
[2024-12-13 01:01] VITALS: BP 168/102; O2SAT 97
== END 2024-12-13 00:51 | disposition home or self-care (01) ==
LOC: ER 17:46
DX: K52.89 Other specified noninfective gastroenteritis and colitis (principal); K02.7 Dental root caries; I10 Essential (primary) hypertension; F17.210 Nicotine dependence, cigarettes, uncomplicated; Z95.818 Presence of other cardiac implants and grafts; Z79.82 Long term (current) use of aspirin
CPT/HCPCS: 36415; 70491; 74177; 80053; 83690; 85025; 96361; 96374; 96375; 99285; J0295; J2405; J7030; Q9967

== ENCOUNTER 2025-04-10 10:17 | Observation (INO) | payer OTHER ==
[2025-04-10] MEDS ORDERED: ASPIRIN 81 MG CHEWABLE TABLET ONE (10:39)
[2025-04-10 10:54] LABS: Absolute Lymphocytes (CBC) 2.0 K/uL (0.7-4.9); Hematocrit 46.3 % (39.6-49.0); Hemoglobin 15.9 g/dL (13.6-17.9); MCH 31.0 pg (27.0-35.0); MCHC 34.4 g/dL (32.0-36.0); MCV 90.2 fL (80-100); MPV 7.9 fL (7.6-11.3); Nucleated RBC Absolute Count 0.0 (0-0); Nucleated Red Blood Cells % 0.0 % (0-0); RBC Red Blood Cell Count 5.13 M/uL (4.33-5.43); White Blood Count 6.80 thou/uL (4.3-10.9)
--- NOTE | 2025-04-10 11:34 | RAD REPORT ---
EXAM: Chest Single View HISTORY: 54 years Male CHEST PAIN COMPARISON: 10/10/2024 FINDINGS: LUNGS/PLEURA: The lungs are clear. No pleural effusions or pneumothorax. No pulmonary edema. CARDIAC/MEDIASTINUM: The cardiac silhouette is within normal limits. UPPER ABDOMEN: No significant abnormality. BONES: No acute abnormality. LINES/TUBES/OTHER: N/A IMPRESSION: No evidence of acute cardiopulmonary disease.
[2025-04-10 11:41] LABS: ALT/SGPT 82 U/L (16-61); Albumin 3.7 g/dL (3.4-5.0); Albumin/Globulin Ratio 1.0 (1.1-1.8); Alkaline Phosphatase 123 U/L (45-117); Anion Gap 10.7 mEq/L (5.0-15.0); BUN Blood Urea Nitrogen 12 mg/dL (7-18); Globulin 3.8 g/dL (2.3-3.5); Glucose Level 105 mg/dL (74-106); NT PRO-BNP 83 pg/mL (<125); Troponin High Sensitivity 4.4 pg/mL (<58.9)
[2025-04-10 11:49] LABS: AST/SGOT 34 U/L (15-37); Bilirubin Indirect, Calculated 0.2 mg/dL (0.2-0.8); Magnesium 2.2 mg/dL (1.6-2.4); Potassium 3.7 mEq/L (3.5-5.1)
--- NOTE | 2025-04-10 12:07 | EDPHYS ---
Physician Documentation [facility] Name: John Ortiz Age: 54 yrs Sex: Male : 1970 Arrival Date: 04/10/2025 Time: 10:17 Bed 8 Private MD: ED Physician Starr Greer HPI: 04/10 10:25 This 54 yrs old Male presents to ER via Unassigned with complaints of Chest sw6 Pain. 10:25 The patient or guardian reports chest pain that is located primarily in the substernal sw6 area. Onset: 3:00 in the morning. The pain radiates to Bilateral arms. Associated signs and symptoms: Pertinent negatives: dizziness, headache, nausea, near syncope, palpitations, recent travel. Duration: The patient or guardian reports multiple episodes, that have now resolved. Severity of pain: in the emergency department the pain has resolved 1 hour(s) prior to arrival. The patient presents from home for evaluation for chest pain that started around 3:00 in the morning. He reports it woke him up from sleep. It has been coming and going ever since. He last had an episode of pain about 1 hour prior to arrival. He reports the pain radiates to his bilateral arms but is not worse with exertion or deep breathing. He has a slight cough that is dry. No shortness of breath. No fevers or chills. No nausea or vomiting. No medication taken for symptoms. He does have a history of high blood pressure as well as high cholesterol and does smoke. He has had 2 prior cardiac catheterizations with stents but never has had an NE. He does take aspirin and Plavix daily. He reports he last had Plavix yesterday however he has not had aspirin in several weeks. No recent trips or travel. Here for evaluation.. Historical: - Allergies: 10:20 No Known Allergies; aa5 - Home Meds: 10:20 aspirin 81 mg Oral tablet 1 tab daily [Active]; clopidogrel 75 mg Oral tablet 1 tab aa5 daily [Active]; metoprolol tartrate 25 mg Oral tablet 1 tab 2 times per day [Active]; losartan oral [Active]; - PMHx: 10:20 Hypercholesterolemia; Hypertensive disorder; aa5 - PSHx: 10:20 Appendectomy; cardiac stent; aa5 - Immunization history:: Adult Immunizations unknown. - Infectious Disease History:: Denies. - Social history:: Smoking status: Patient reports the use of cigarette tobacco products. ROS: 10:25 Constitutional: Negative for fever, chills, and weight loss, Respiratory: Negative for sw6 shortness of breath, cough, wheezing, and pleuritic chest pain, Abdomen/GI: Negative for abdominal pain, nausea, vomiting, diarrhea, and constipation, MS/Extremity: Negative for injury and deformity, 10:25 Cardiovascular: Positive for chest pain, Negative for edema, palpitations, 10:25 All other systems are negative, Exam: 10:25 Constitutional: This is a well developed, well nourished patient who is awake, alert, sw6 and in no acute distress. Head/Face: Normocephalic, atraumatic. Chest/axilla: Normal chest wall appearance and motion. Nontender with no deformity. No lesions are appreciated. Cardiovascular: Regular rate and rhythm with a normal S1 and S2. No gallops, murmurs, or rubs. Normal PMI, no JVD. No pulse deficits. Respiratory: Lungs have equal breath sounds bilaterally, clear to auscultation and percussion. No rales, rhonchi or wheezes noted. No increased work of breathing, no retractions or nasal flaring. Abdomen/GI: Soft, non-tender, with normal bowel sounds. No distension or tympany. No guarding or rebound. No evidence of tenderness throughout. Skin: Warm, dry with normal turgor. Normal color with no rashes, no lesions, and no evidence of cellulitis. MS/ Extremity: Pulses equal, no cyanosis. Neurovascular intact. Full, normal range of motion. 10:25 Constitutional: The patient appears obese, 14:24 ECG was reviewed by the Attending Physician. [facility] Vital Signs: 10:20 BP 134 / 90; Pulse 61; Resp 16 S; Temp 97.8(TE); Pulse Ox 99% on R/A; Weight 104.33 kg aa5 (R); Height 6 ft. 1 in. (R); Pain 0/10; 11:00 BP 127 / 83; Pulse 55; Resp 16; Pulse Ox 97% on R/A; cf3 12:00 BP 140 / 91; Pulse 52; Resp 16; Pulse Ox 98% ; me1 13:00 BP 145 / 79; Pulse 57; Resp 16; Pulse Ox 96% on R/A; cf3 10:20 Body Mass Index 30.34 (104.33 kg, 185.42 cm) aa5 10:20 Pain Scale: Adult aa5 MDM: 10:19 Medical Screening Exam initiated 10:25 Differential diagnosis: acute myocardial infarction, coronary artery disease chest wall sw6 pain, congestive heart failure costochondritis, gastroesophageal reflux disease (GERD), stable angina. The patient was given aspirin in the Emergency Department. 12:03 HEART Score: History: Slightly Suspicious (0), ECG: Normal (0), Age: > 45 and < 65 sw6 years (1), Risk Factors: > or = 3 Risk factors for atherosclerotic disease (2), [Hypercholesterolemia] [Hypertension] [Active Smoker] Troponin: < or = 1 x Normal Limit (0), Total Score = 3. PIOTR Risk Score: 1 - Three or more CAD risk factors, [HTN], [Elevated Cholesterol], [Active Smoker], 1- Known CAD, 1 - Recent [<24hrs] Severe Angina, TOTAL SCORE = 3. ED course: The patient is doing well here in the ER. He remains chest pain-free since his arrival. His chest x-ray shows no acute cardiopulmonary issues. His laboratory studies are unremarkable including a normal troponin. He does have a significant cardiac history with cardiac stents as well as a history of high blood pressure and cholesterol and he still smokes. He is also supposed to be on aspirin but has not taken it in several weeks. His heart score is a 3. Will admit the patient to internal medicine for continued management.. 12:07 Data reviewed: lab test result(s), cardiac enzymes, CBC, electrolytes, EKG, radiologic studies, plain films. 04/10 10:25 Order name: Basic Metabolic Panel; Complete Time: 11:54 04/10 11:55 Interpretation: Within normal limits: CRE 1.20. 04/10 10:25 Order name: CBC with Diff; Complete Time: 11:37 04/10 11:38 Interpretation: Within normal limits: PLT 243; HCT 46.3; HGB 15.9; WBC 6.80. 04/10 10:25 Order name: LFT's; Complete Time: 11:54 04/10 11:55 Interpretation: Within normal limits. 04/10 10:25 Order name: Magnesium; Complete Time: 11:54 04/10 11:55 Interpretation: Within normal limits: MG 2.2. 04/10 10:25 Order name: NT PRO-BNP; Complete Time: 11:54 04/10 11:55 Interpretation: Within normal limits: NT PRO-BNP 83. 04/10 10:25 Order name: Troponin HS; Complete Time: 11:54 04/10 11:55 Interpretation: Within normal limits: Troponin HS 4.4. 04/10 12:59 Order name: Basic Metabolic Panel EDMS 04/10 12:59 Order name: Basic Metabolic Panel EDMS 04/10 12:59 Order name: CBC with Automated Diff EDMS 04/10 12:59 Order name: CBC with Automated Diff EDMS 04/10 12:59 Order name: Lipid Profile EDMS 04/10 12:59 Order name: Lipid Profile EDMS 04/10 12:59 Order name: Magnesium EDMS 04/10 12:59 Order name: Magnesium EDMS 04/10 12:59 Order name: Phosphorus EDMS 04/10 12:59 Order name: Phosphorus EDMS 04/10 12:59 Order name: T4 Free EDMS 04/10 12:59 Order name: T4 Free EDMS 04/10 12:59 Order name: Thyroid Stimulating Hormone EDMS 04/10 12:59 Order name: Thyroid Stimulating Hormone EDMS 04/10 12:59 Order name: Troponin High Sensitivity EDMS 04/10 13:00 Order name: Troponin High Sensitivity EDMS 04/10 13:00 Order name: Troponin High Sensitivity EDMS 04/10 10:25 Order name: XRAY Chest (1 view); Complete Time: 11:37 04/10 11:38 Interpretation: No acute disease. 04/10 12:59 Order name: Echo with Doppler EDMS 04/10 12:59 Order name: Echo with Doppler EDMS 04/10 10:25 Order name: EKG; Complete Time: 10:25 04/10 10:25 Order name: Cardiac monitoring; Complete Time: 10:31 04/10 10:25 Order name: EKG - Nurse/Tech; Complete Time: 10:31 04/10 10:25 Order name: IV Saline Lock; Complete Time: 10:38 04/10 10:25 Order name: Labs collected and sent; Complete Time: 10:38 04/10 10:25 Order name: O2 Per Protocol; Complete Time: 10:04/10 10:25 Order name: O2 Sat Monitoring; Complete Time: : EC:24 Rate is 61 beats/min. Rhythm is regular. [place] interval is normal. QRS interval is normal. sw6 QT interval is normal. T waves are Normal. No ST changes noted. Clinical impression: Normal ECG. Administered Medications: 10:40 Drug: Aspirin PO Chewable Tablet 324 mg PO once; 81 mg tablets x 4 Route: PO; aa5 11:18 Follow up: Response: No adverse reaction; No change in condition cf3 12:18 Drug: Nicoderm CQ Transdermal Patch 21 mg/24 hr 1 patches Transdermal once Route: cf3 Transdermal; Site: affected area; Disposition Summary: 04/10/25 12:07 Hospitalization Ordered Notes: Hospitalization Status: Observation sw6 Provider: Bart Nicholson [facility] Location: Telemetry/MedSurg (observation) sw6 Condition: Stable sw6 Problem: an acute exacerbation sw6 Symptoms: have improved sw6 Bed/Room Type: Standard [facility] Room Assignment: 212(04/10/25 13:08) jl7 Diagnosis - Chest pain, unspecified sw6 Forms: - Medication Reconciliation Form sw6 - SBAR form 6 - Leadership Thank You Letter 6 Signatures: Dispatcher [employer] EDMS Stephenie Villarreal RN RN aa5 Camila Hurtado RN RN jl7 Starr Greer MD MD 6 Cain Bravo RN RN cf3 Corrections: (The following items were deleted from the chart) 10: 10:25 BASIC METABOLIC PANEL+C.LAB.BRZ ordered. EDMS EDMS 10:26 10:25 CBC+H.LAB.BRZ ordered. EDMS EDMS 10:26 10:25 HEPATIC FUNCTION+C.LAB.BRZ ordered. EDMS EDMS 10:26 10:25 MAGNESIUM+C.LAB.BRZ ordered. EDMS EDMS 10:26 10:25 PROBNP+C.LAB.BRZ ordered. EDMS EDMS 10:26 10:25 Troponin High Sensitivity+C.LAB.BRZ ordered. EDMS EDMS 13:08 12:07 sw6 jl7
--- NOTE | 2025-04-10 12:07 | ER ---
Nurse's Notes [facility] Name: John Ortiz Age: 54 yrs Sex: Male : 1970 Arrival Date: 04/10/2025 Time: 10:17 Bed 8 Private MD: Diagnosis: Chest pain, unspecified Presentation: 04/10 10:20 Chief complaint: Patient states: chest pain that is intermittent and woke him up this aa5 morning. Currently rates 0. 10:20 Coronavirus screen: At this time, the client does not indicate any symptoms associated aa5 with coronavirus-19. Ebola Screen: Patient denies travel to an Ebola-affected area in the 21 days before illness onset. Initial Sepsis Screen: Does the patient meet any 2 criteria? No. Patient's initial sepsis screen is negative. Does the patient have a suspected source of infection? No. Patient's initial sepsis screen is negative. Risk Assessment: Do you want to hurt yourself or someone else? Patient reports no desire to harm self or others. Onset of symptoms was April 10, 2025. 10:20 Acuity: LYDIA 2 aa5 10:20 Method Of Arrival: Ambulatory aa5 Historical: - Allergies: 10:20 No Known Allergies; aa5 - Home Meds: 10:20 aspirin 81 mg Oral tablet 1 tab daily [Active]; clopidogrel 75 mg Oral tablet 1 tab aa5 daily [Active]; metoprolol tartrate 25 mg Oral tablet 1 tab 2 times per day [Active]; losartan oral [Active]; - PMHx: 10:20 Hypercholesterolemia; Hypertensive disorder; aa5 - PSHx: 10:20 Appendectomy; cardiac stent; aa5 - Immunization history:: Adult Immunizations unknown. - Infectious Disease History:: Denies. - Social history:: Smoking status: Patient reports the use of cigarette tobacco products. Screenin:15 [facility] ED Fall Risk Assessment (Adult) History of falling in the last 3 months, cf3 including since admission No falls in past 3 months (0 pts) Confusion or Disorientation No (0 pts) Intoxicated or Sedated No (0 pts) Impaired Gait No (0 pts) Mobility Assist Device Used No (0 pt) Altered Elimination No (0 pt) Score/Fall Risk Level 0 - 2 = Low Risk Oriented to surroundings, Maintained a safe environment, Hourly rounding (assess needs \T\ fall precautionary measures) done. Abuse screen: Denies threats or abuse. Denies injuries from another. Nutritional screening: No deficits noted. Tuberculosis screening: No symptoms or risk factors identified. Assessment: 11:11 General: Appears uncomfortable, Behavior is calm. Pain: Denies pain. Denies pain at cf3 this time Pain began Denies. Cardiovascular: Reports episode of chest pain earlier today Rhythm is sinus bradycardia. Vital Signs: 10:20 BP 134 / 90; Pulse 61; Resp 16 S; Temp 97.8(TE); Pulse Ox 99% on R/A; Weight 104.33 kg aa5 (R); Height 6 ft. 1 in. (R); Pain 0/10; 11:00 BP 127 / 83; Pulse 55; Resp 16; Pulse Ox 97% on R/A; cf3 12:00 BP 140 / 91; Pulse 52; Resp 16; Pulse Ox 98% ; me1 13:00 BP 145 / 79; Pulse 57; Resp 16; Pulse Ox 96% on R/A; cf3 10:20 Body Mass Index 30.34 (104.33 kg, 185.42 cm) aa5 10:20 Pain Scale: Adult aa5 ED Course: 10:18 Patient arrived in ED. gl 10:19 Starr Greer MD is Attending Physician. sw6 10:20 Arm band placed on Patient placed in an exam room, on a stretcher. aa5 10:28 EKG done, by ED staff, reviewed by Starr Greer MD. aa5 10:34 Triage completed. aa5 10:38 Cain Bravo, RN is Primary Nurse. cf3 11:15 No provider procedures requiring assistance completed. Inserted saline lock: 20 gauge cf3 in left forearm, using aseptic technique. Patient maintains SpO2 saturation greater than 95% on room air. 11:15 Patient has correct armband on for positive identification. Bed in low position. Call cf3 light in reach. Side rails up X 1. Client placed on continuous cardiac and pulse oximetry monitoring. NIBP monitoring applied. Door closed. Noise minimized. 11:23 XRAY Chest (1 view) In Process Unspecified. EDMS 12:06 Bart Nicholson MD is Hospitalizing Provider. sw6 14:33 Patient admitted, IV remains in place. intact, No redness/swelling at site. cf3 Administered Medications: 10:40 Drug: Aspirin PO Chewable Tablet 324 mg PO once; 81 mg tablets x 4 Route: PO; aa5 11:18 Follow up: Response: No adverse reaction; No change in condition cf3 12:18 Drug: Nicoderm CQ Transdermal Patch 21 mg/24 hr 1 patches Transdermal once Route: cf3 Transdermal; Site: affected area; Medication: 11:16 VIS not applicable for this client. cf3 Outcome: 12:07 Decision to Hospitalize by Provider. [facility] 14:32 Admitted to Med/surg via wheelchair, room 212, with chart, cf3 14:32 Condition: stable 14:32 Discharge instructions given to patient, Instructed on the need for admit, Demonstrated understanding of instructions, 14:33 Patient left the ED. cf3 Signatures: Dispatcher [employer] Stephenie Wright, RN RN aa5 Conchita Saunders RN RN me1 Starr Greer MD MD 6 Marsha Ace, [facility] Cain Bravo RN RN cf3
[2025-04-10] MEDS ORDERED: NICOTINE 21 MG/PAT TD ONE (12:15)
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
[2025-04-10] MEDS ORDERED: ACETAMINOPHEN 325 MG TABLET PO PRN (12:52)
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
[2025-04-10 14:43] VITALS: O2SAT 96
[2025-04-10 15:19] VITALS: BMI 30.3
[2025-04-10] MEDS: ATORVASTATIN 40 MG TAB PO SCH (20:55)
[2025-04-10] MEDS: METOPROLOL TAR 25 MG TAB PO ONE (22:35)
[2025-04-11] MEDS: MORPHINE 2 MG/ML SYR IV PRN (03:19)
[2025-04-11 04:28] LABS: Absolute Lymphocytes (CBC) 2.6 K/uL (0.7-4.9); Hematocrit 41.1 % (39.6-49.0); Hemoglobin 14.7 g/dL (13.6-17.9); MCH 31.9 pg (27.0-35.0); MCHC 35.7 g/dL (32.0-36.0); MCV 89.4 fL (80-100); MPV 7.7 fL (7.6-11.3); Nucleated RBC Absolute Count 0.0 (0-0); Nucleated Red Blood Cells % 0.2 % (0-0); RBC Red Blood Cell Count 4.59 M/uL (4.33-5.43); White Blood Count 7.80 thou/uL (4.3-10.9)
[2025-04-11 05:02] LABS: Anion Gap 9.0 mEq/L (5.0-15.0); BUN Blood Urea Nitrogen 16.0 mg/dL (7-18); Glucose Level 107.0 mg/dL (74-106); HDL Cholesterol 22.0 mg/dL (40-60); LDL Cholesterol, Calculated 35.0 mg/dL (<130); LDL Cholesterol,Calc NonReport 35.0
[2025-04-11 05:14] LABS: Magnesium 2.2 mg/dL (1.6-2.4); Potassium 4.0 mEq/L (3.5-5.1); Thyroid Stimulating Hormone 5.07 uIU/mL (0.358-3.740)
[2025-04-11] MEDS: ASPIRIN EC 81 MG TAB PO ONE (06:40)
[2025-04-11] MEDS: LOSARTAN POTASSIUM 50 MG TABLET ONE (06:41)
[2025-04-11] MEDS: METOPROLOL TAR 25 MG TAB ONE (06:41)
[2025-04-11] MEDS: ASPIRIN EC 81 MG TAB PO SCH (06:43)
[2025-04-11] MEDS: LOSARTAN POTASSIUM 50 MG TABLET PO SCH (06:43)
[2025-04-11] MEDS: METOPROLOL TAR 25 MG TAB PO SCH (06:44)
[2025-04-11 08:09] VITALS: BP 139/84; TEMP 97.7
[2025-04-11] MEDS: ENOXAPARIN 40 MG/0.4 ML SQ SCH (08:25)
[2025-04-11] MEDS: CLOPIDOGREL 75 MG TABLET PO SCH (08:26)
--- NOTE | 2025-04-11 09:41 | P.PN ---
Subjective Date of Service: 04/11/25 Chief Complaint: Chest pain rule out [place] Subjective: No new changes, No C/O voiced, Tolerating diet, Ambulating, Improving Review of Systems 10-point ROS is otherwise unremarkable Physical Examination - Vital Signs Temperature: 97.7 F Blood Pressure: 139/84 Pulse: 58 Respirations: 18 Pulse Ox (%): 95 - Physical Exam General: Alert, In no apparent distress HEENT: Atraumatic, PERRLA, EOMI Neck: Supple, JVD not distended Respiratory: Clear to auscultation bilaterally, Normal air movement Cardiovascular: Regular rate/rhythm, Normal S1 S2 Gastrointestinal: Normal bowel sounds, No tenderness Musculoskeletal: No tenderness Integumentary: No rashes Neurological: Normal speech, Normal tone, Normal affect Lymphatics: No axilla or inguinal lymphadenopathy - Studies Laboratory Data (last 24 hrs) 04/10/25 04/10/25 10:35 10:35 WBC 6.80 Hgb 15.9 Hct 46.3 Plt Count 243 Sodium 138 Potassium 3.7 BUN 12 Creatinine 1.20 Glucose 105 Magnesium 2.2 Total Bilirubin 0.4 AST 34 ALT 82 H Alkaline Phosphatase 123 H Medications List Reviewed: Yes Assessment And Plan - Current Problems (Diagnosis) (1) CAD (coronary artery disease) Current Visit: Yes Status: Acute Plan: Patient with stents placement in RCA and OM Troponin negative x3 continue ASA 81 mg daily continue Plavix 75 mg daily continue lipitor 40 mg daily Outpatient follow up with cardiology for cardiac PET (2) HTN (hypertension) Current Visit: No Status: Acute Plan: continue lopressor 12.5 mg po BID Continue Losartan continue to monitor (3) HLD (hyperlipidemia) Current Visit: No Status: Acute Plan: continue lipitor 40 mg daily add Fenofibrate 160 mg daily (TG is over 3000 Physician Review: Patient Assessed, Agree with Above Assessment and Plan
--- NOTE | 2025-04-11 09:42 | P.DS ---
Admission Date: 04/10/25 Discharge Date: 04/11/25 Reason for Admission: Chest pain rule out [place] Brief History of Present Illness: Diagnosis Chest pain ruled out [place] CAD with stent Hypertension Hypercholesterolemia HPI 04/10/2025 John Ortiz is a 54-year-old male with past medical history of hypercholesterolemia, hypertension, CAD with stents who presents to the ED with chief complaint of substernal chest pain radiating down bilateral upper extremities he reports has had several episodes of chest pain prior to arrival but is feeling better now. Initial chest pain woke him up at [address] Arrieta evaluated in the ED, Troponin and EKG negative. We will admit to observation, trending troponins, and be on continuous telemetry. Patient has family history of heart disease. Heart score 4. Chest xray reports "No evidence of acute cardiopulmonary disease." Hospital Course: John was admitted and evaluated for substernal chest pain radiating to bilateral upper extremities. Troponins trended flat, EKG negative for ST abnormalities, Continuous telemetry with no acute events noted. Dr. Arrieta was consulted for evaluation and has cleared him for discharge with expectations of follow up at his clinic for a cardiac PET. Starting fenofibrate for triglycerides at 326. John was seen on morning rounds hemodynamically stable, He reports chest pain has improved. He will be discharged home with family support. Physical Exam General: Alert and Oriented x3, NAD HEENT: Atraumatic, Normocephalic Neck: Supple, 2+ carotid pulse no bruit Respiratory: Clear BBS, on RA Cardiovascular: Normal pulses, Regular rate/rhythm Gastrointestinal: Normal bowel sounds, Soft and benign Musculoskeletal: No clubbing Integumentary: No rashes Neurological: Normal speech, Normal tone <Yane Morales - Last Filed: 04/11/25 10:14> Admission Date: 04/10/25 Discharge Date: 04/11/25 <Bart Nicholson - Last Filed: 04/11/25 16:55> Disposition: ROUTINE DISCHARGE Discharge Condition: GOOD Vital Signs/Physical Exam: Temp Pulse Resp BP Pulse Ox 97.7 F 58 18 139/84 95 04/11/25 08:00 04/11/25 08:00 04/11/25 08:00 04/11/25 08:00 04/11/25 08:00 Laboratory Data at Discharge: WBC 7.80 thou/uL (4.3-10.9) 04/11/25 04:02 Hgb 14.7 g/dL (13.6-17.9) 04/11/25 04:02 Hct 41.1 % (39.6-49.0) 04/11/25 04:02 Plt Count 231 thou/uL (152-406) 04/11/25 04:02 Sodium 140 mEq/L (136-145) 04/11/25 04:02 Potassium 4.0 mEq/L (3.5-5.1) 04/11/25 04:02 BUN 16 mg/dL (7-18) 04/11/25 04:02 Creatinine 1.14 mg/dL (0.70-1.30) 04/11/25 04:02 Glucose 107 mg/dL (74-106) H 04/11/25 04:02 Phosphorus 4.2 mg/dL (2.5-4.9) 04/11/25 04:02 Magnesium 2.2 mg/dL (1.6-2.4) 04/11/25 04:02 Total Bilirubin 0.4 mg/dL (0.2-1.0) 04/10/25 10:35 AST 34 U/L (15-37) 04/10/25 10:35 ALT 82 U/L (16-61) H 04/10/25 10:35 Alkaline Phosphatase 123 U/L (45-117) H 04/10/25 10:35 Triglycerides 326 mg/dL (<150) H 04/11/25 04:02 Cholesterol 122 mg/dL (<200) 04/11/25 04:02 HDL Cholesterol 22 mg/dL (40-60) L 04/11/25 04:02 Cholesterol/HDL Ratio 5.55 04/11/25 04:02 <Yane Morales - Last Filed: 04/11/25 10:14> Vital Signs/Physical Exam: Temp Pulse Resp BP Pulse Ox 97.7 F 58 18 139/84 95 04/11/25 09:41 04/11/25 09:41 04/11/25 09:41 04/11/25 09:41 04/11/25 09:41 Laboratory Data at Discharge: WBC 7.80 thou/uL (4.3-10.9) 04/11/25 04:02 Hgb 14.7 g/dL (13.6-17.9) 04/11/25 04:02 Hct 41.1 % (39.6-49.0) 04/11/25 04:02 Plt Count 231 thou/uL (152-406) 04/11/25 04:02 Sodium 140 mEq/L (136-145) 04/11/25 04:02 Potassium 4.0 mEq/L (3.5-5.1) 04/11/25 04:02 BUN 16 mg/dL (7-18) 04/11/25 04:02 Creatinine 1.14 mg/dL (0.70-1.30) 04/11/25 04:02 Glucose 107 mg/dL (74-106) H 04/11/25 04:02 Phosphorus 4.2 mg/dL (2.5-4.9) 04/11/25 04:02 Magnesium 2.2 mg/dL (1.6-2.4) 04/11/25 04:02 Total Bilirubin 0.4 mg/dL (0.2-1.0) 04/10/25 10:35 AST 34 U/L (15-37) 04/10/25 10:35 ALT 82 U/L (16-61) H 04/10/25 10:35 Alkaline Phosphatase 123 U/L (45-117) H 04/10/25 10:35 Triglycerides 326 mg/dL (<150) H 04/11/25 04:02 Cholesterol 122 mg/dL (<200) 04/11/25 04:02 HDL Cholesterol 22 mg/dL (40-60) L 04/11/25 04:02 Cholesterol/HDL Ratio 5.55 04/11/25 04:02 <Bart Nicholson - Last Filed: 04/11/25 16:55> Diet: AHA Activity: Ad christina <aYne Morales - Last Filed: 04/11/25 10:14> Physician Review: Patient Assessed, Agree with Above Assessment and Plan <Bart Nicholson - Last Filed: 04/11/25 16:55> Home Medications: Atorvastatin Calcium [Lipitor] 40 mg PO BEDTIME #30 tab 06/22/24 Aspirin [Aspirin EC] 81 mg PO DAILY #30 tab 08/12/24 Clopidogrel Bisulfate [Plavix*] 75 mg PO DAILY #30 tab 08/12/24 Losartan Potassium [Cozaar*] 50 mg PO DAILY #90 tab 10/13/24 Metoprolol Tartrate [Lopressor*] 12.5 mg PO BID #180 tab 10/13/24 Atorvastatin Calcium [Lipitor] 40 mg PO BEDTIME tab 04/11/25 Fenofibrate [Tricor*] 145 mg PO DAILY 30 Days #30 tab 04/11/25 New Medications: Fenofibrate [Tricor*] 145 mg PO DAILY 30 Days #30 tab Physician Discharge Instructions: 1. Please call and schedule a follow-up appointment with your PCP in 3-5 days - Please follow-up with your PCP for medication refills/adjustments 2. Please call and schedule a follow-up appointment with Dr. Arrieta in one-two weeks -Starting Fenofibrate for cholesterol - Expect scheduling cardiac PET scanning 3. Continue heart healthy diet 4. Now activity restrictions 5. Return to the ED if symptoms worsen New medications Fenofibrate 145 mg daily Followup: Jack Arrieta MD [ACTIVE - CAN ADMIT] - 1-2 Weeks Daisy Ferro FNP [Primary Care Provider] - 1-2 Weeks
== END 2025-04-11 09:56 | disposition home or self-care (01) ==
LOC: ER 10:17 → ERHOLD 12:52 → 2ND 14:05
PROVIDERS: ADMIT Family Medicine; ATTEND Family Medicine
DX: R07.9 Chest pain, unspecified (principal); E78.00 Pure hypercholesterolemia, unspecified; I10 Essential (primary) hypertension; I25.10 Atherosclerotic heart disease of native coronary artery without angina pectoris; E78.5 Hyperlipidemia, unspecified; F17.210 Nicotine dependence, cigarettes, uncomplicated; Z71.6 Tobacco abuse counseling; Z95.5 Presence of coronary angioplasty implant and graft
CPT/HCPCS: 93005; 85025 ×2; 80048 ×2; 36415; 83735 ×2; 84100; 80061; 80076; 84443; 84484 ×3; 84439; 83880; 71045; 99285; J2270; G0378 ×3